=== PATIENT | male | born 1950 | race African-American/Black ===

== ENCOUNTER → 2016-04-30 | Outpatient (CLI) | payer OTHER, MEDICARE ==
[2016-01-31 09:22] VITALS: BP 145/91
[~2016-04-30] MED LIST: AMLO5TAB2 PO; AMOX1TAB11 PO; Amoxicillin/Potassium Clav PO; CEPH-264 PO; DIPH25TA64 PO; DOCU100C PO; ESOM20CA PO; FENT1PAT17 TD; FERR-26 PO; GABA-586 PO; HYDR-2672 PO; HYDR-2762 PO; HYDR10SY8 PO; HYDR10TA2 PO; IBUP-1060 PO; IBUP800T2 PO; IOHEXOL 180 MG/ML 10 ML VIAL. ONE; LEVO25TA2 PO; LEVO500T38 PO; LOSA50TA6 PO; MULT-91 PO; MV M PO; SILV400C TOP; SODI650T PO; TERA5CAP3 PO; TEST200V3 IM; VITA100C4 PO; methylPREDNISolone ACETATE 40 MG/ML VIAL. ONE; methylPREDNISolone ACETATE 80 MG/ML VIAL. ONE
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
== END | disposition home or self-care (01) ==
LOC: PNCL 10:07
PROVIDERS: ATTEND Anesthesiology
DX: M50.123 Cervical disc disorder at C6-C7 level with radiculopathy (principal); M48.02 Spinal stenosis, cervical region; I10 Essential (primary) hypertension; E03.9 Hypothyroidism, unspecified; K21.9 Gastro-esophageal reflux disease without esophagitis; M19.90 Unspecified osteoarthritis, unspecified site; H91.90 Unspecified hearing loss, unspecified ear; Z98.890 Other specified postprocedural states; Z72.89 Other problems related to lifestyle; Z83.3 Family history of diabetes mellitus; Z80.9 Family history of malignant neoplasm, unspecified
CPT/HCPCS: 62321; J1030; J1040

== ENCOUNTER 2016-06-24 19:44 | Emergency (ER) | payer MEDICARE ==
[~2016-06-24] VITALS: Ht 180.3 cm; Wt 72.6 kg
[~2016-06-24 19:44] MED LIST changes: -IOHEXOL 180 MG/ML 10 ML VIAL. ONE; -methylPREDNISolone ACETATE 40 MG/ML VIAL. ONE; -methylPREDNISolone ACETATE 80 MG/ML VIAL. ONE
[2016-06-24] MEDS ORDERED: HYDROMORPHONE 2 MG/ML VIAL. IV/SQ PRN (20:15)
[2016-06-24 20:41] LABS: BASO % 0 % (0-3); EOS % 0 % (0-3); HEMATOCRIT 27.9 % (39.0-53.0); HEMOGLOBIN 9.3 g/dL (13.0-17.5); LYMPH # 1.5 x10^3/uL (1.0-4.8); LYMPH % 17 % (24-48); MEAN CORPUSCULAR HEMOGLOBIN 31 pg (25-35); MEAN CORPUSCULAR HGB CONC 33 g/dL (31-37); MEAN CORPUSCULAR VOLUME 92 fL (79-100); MONO % 9 % (0-9); NEUT % 74 % (31-73); PLATELET COUNT 386 x10^3/uL (140-400); RED BLOOD COUNT 3.05 x10^6/uL (4.30-5.70); RED CELL DISTRIBUTION WIDTH 14.2 % (11.5-14.5); WHITE BLOOD COUNT 8.9 x10^3/uL (4.0-11.0)
[2016-06-24 21:01] LABS: ANION GAP 13 (6-14); BLOOD UREA NITROGEN 73 mg/dL (8-26); CALCIUM 8.9 mg/dL (8.5-10.1); CARBON DIOXIDE 21 mmol/L (21-32); CHLORIDE 101 mmol/L (98-107); CREATININE 1.8 mg/dL (0.7-1.3); GFR 45.8; GLUCOSE 136 mg/dL (70-99); POTASSIUM 4.6 mmol/L (3.5-5.1); SODIUM 135 mmol/L (136-145)
[2016-06-24 21:07] LABS: ALBUMIN 3.5 g/dL (3.4-5.0); ALK PHOS 64 U/L (46-116); ALT (SGPT) 25 U/L (16-63); AST (SGOT) 20 U/L (15-37); DIRECT BILIRUBIN < 0.1 mg/dL (0.0-0.2); MAGNESIUM 2.2 mg/dL (1.8-2.4); TOTAL BILIRUBIN 0.2 mg/dL (0.2-1.0); TOTAL PROTEIN 6.5 g/dL (6.4-8.2)
[2016-06-24 21:15] LABS: CKMB INDEX 1.7 % (0-4); CKMB MASS 3.2 ng/mL (0.0-3.6)
[2016-06-24 21:24] VITALS: BP 123/76
[2016-06-24] MEDS ORDERED: HYDR-963 PO (21:29)
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
--- NOTE | 2016-06-25 06:10 | EKG ---
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
== END 2016-06-24 21:50 | disposition home or self-care (01) ==
LOC: ER 19:44
DX: M54.12 Radiculopathy, cervical region (principal); M50.30 Other cervical disc degeneration, unspecified cervical region; G89.29 Other chronic pain; R07.9 Chest pain, unspecified; E03.9 Hypothyroidism, unspecified; I10 Essential (primary) hypertension
CPT/HCPCS: 36415; 80048; 80076; 82553; 83690; 83735; 83880; 84484; 85027; 93005; 96374; 99285; J1170

== ENCOUNTER → 2016-07-26 | Outpatient (CLI) | payer MEDICARE ==
[~2016-07-26] MED LIST changes: +HYDR-963 PO
== END | disposition home or self-care (01) ==
LOC: PMGWOUND 08:40
PROVIDERS: ATTEND Emergency Medicine Undersea and Hyperbaric Medicine
DX: I87.311 Chronic venous hypertension (idiopathic) with ulcer of right lower extremity (principal); L97.311 Non-pressure chronic ulcer of right ankle limited to breakdown of skin; E03.9 Hypothyroidism, unspecified; M19.90 Unspecified osteoarthritis, unspecified site; E78.5 Hyperlipidemia, unspecified; I12.9 Hypertensive chronic kidney disease with stage 1 through stage 4 chronic kidney disease, or unspecified chronic kidney disease; N18.3 Chronic kidney disease, stage 3 (moderate); Z72.89 Other problems related to lifestyle
CPT/HCPCS: 99214

== ENCOUNTER → 2016-08-02 | Outpatient (CLI) | payer MEDICARE | END | disposition home or self-care (01) | LOC: PMGWOUND 07:59 | PROVIDERS: ATTEND Emergency Medicine Undersea and Hyperbaric Medicine | DX: I87.311 Chronic venous hypertension (idiopathic) with ulcer of right lower extremity (principal); E11.622 Type 2 diabetes mellitus with other skin ulcer; L97.311 Non-pressure chronic ulcer of right ankle limited to breakdown of skin; E03.9 Hypothyroidism, unspecified; M19.90 Unspecified osteoarthritis, unspecified site; E78.5 Hyperlipidemia, unspecified; E11.22 Type 2 diabetes mellitus with diabetic chronic kidney disease; I12.9 Hypertensive chronic kidney disease with stage 1 through stage 4 chronic kidney disease, or unspecified chronic kidney disease; N18.3 Chronic kidney disease, stage 3 (moderate); Z72.89 Other problems related to lifestyle | CPT/HCPCS: 99213 ==

== ENCOUNTER → 2016-08-09 | Outpatient (CLI) | payer MEDICARE ==
[~2016-08-09] MED LIST changes: -LEVO25TA2 PO; +LEVO25TA55 PO
== END | disposition home or self-care (01) ==
LOC: PMGWOUND 08:15
PROVIDERS: ATTEND Emergency Medicine Undersea and Hyperbaric Medicine
DX: I87.311 Chronic venous hypertension (idiopathic) with ulcer of right lower extremity (principal); E11.622 Type 2 diabetes mellitus with other skin ulcer; L97.311 Non-pressure chronic ulcer of right ankle limited to breakdown of skin; E03.9 Hypothyroidism, unspecified; M19.90 Unspecified osteoarthritis, unspecified site; E11.22 Type 2 diabetes mellitus with diabetic chronic kidney disease; I12.9 Hypertensive chronic kidney disease with stage 1 through stage 4 chronic kidney disease, or unspecified chronic kidney disease; N18.3 Chronic kidney disease, stage 3 (moderate); Z72.89 Other problems related to lifestyle
CPT/HCPCS: 99214

== ENCOUNTER → 2016-08-16 | Outpatient (CLI) | payer MEDICARE | END | disposition home or self-care (01) | LOC: PMGWOUND 07:55 | PROVIDERS: ATTEND Emergency Medicine Undersea and Hyperbaric Medicine | DX: I87.311 Chronic venous hypertension (idiopathic) with ulcer of right lower extremity (principal); E11.622 Type 2 diabetes mellitus with other skin ulcer; L97.311 Non-pressure chronic ulcer of right ankle limited to breakdown of skin; E03.9 Hypothyroidism, unspecified; M19.90 Unspecified osteoarthritis, unspecified site; E11.22 Type 2 diabetes mellitus with diabetic chronic kidney disease; I12.9 Hypertensive chronic kidney disease with stage 1 through stage 4 chronic kidney disease, or unspecified chronic kidney disease; N18.3 Chronic kidney disease, stage 3 (moderate); E78.5 Hyperlipidemia, unspecified; Z72.89 Other problems related to lifestyle | CPT/HCPCS: 11042 ==

== ENCOUNTER → 2016-08-23 | Outpatient (CLI) | payer MEDICARE | END | disposition home or self-care (01) | LOC: PMGWOUND 07:51 | PROVIDERS: ATTEND Emergency Medicine Undersea and Hyperbaric Medicine | DX: I87.311 Chronic venous hypertension (idiopathic) with ulcer of right lower extremity (principal); L97.311 Non-pressure chronic ulcer of right ankle limited to breakdown of skin; E03.9 Hypothyroidism, unspecified; M19.90 Unspecified osteoarthritis, unspecified site; E11.22 Type 2 diabetes mellitus with diabetic chronic kidney disease; I12.9 Hypertensive chronic kidney disease with stage 1 through stage 4 chronic kidney disease, or unspecified chronic kidney disease; N18.3 Chronic kidney disease, stage 3 (moderate); E78.5 Hyperlipidemia, unspecified; Z72.89 Other problems related to lifestyle | CPT/HCPCS: 99214 ==

== ENCOUNTER → 2016-08-30 | Outpatient (CLI) | payer MEDICARE | END | disposition home or self-care (01) | LOC: PMGWOUND 07:58 | PROVIDERS: ATTEND Emergency Medicine Undersea and Hyperbaric Medicine | DX: I87.311 Chronic venous hypertension (idiopathic) with ulcer of right lower extremity (principal); L97.311 Non-pressure chronic ulcer of right ankle limited to breakdown of skin; E78.5 Hyperlipidemia, unspecified; I12.9 Hypertensive chronic kidney disease with stage 1 through stage 4 chronic kidney disease, or unspecified chronic kidney disease; E11.22 Type 2 diabetes mellitus with diabetic chronic kidney disease; N18.3 Chronic kidney disease, stage 3 (moderate); E03.9 Hypothyroidism, unspecified; M19.90 Unspecified osteoarthritis, unspecified site; Z72.89 Other problems related to lifestyle | CPT/HCPCS: 15271; Q4101 ==

== ENCOUNTER → 2016-09-06 | Outpatient (CLI) | payer MEDICARE | END | disposition home or self-care (01) | LOC: PMGWOUND 12:09 | PROVIDERS: ATTEND Emergency Medicine Undersea and Hyperbaric Medicine | DX: I87.311 Chronic venous hypertension (idiopathic) with ulcer of right lower extremity (principal); E11.622 Type 2 diabetes mellitus with other skin ulcer; E11.22 Type 2 diabetes mellitus with diabetic chronic kidney disease; L97.311 Non-pressure chronic ulcer of right ankle limited to breakdown of skin; I12.9 Hypertensive chronic kidney disease with stage 1 through stage 4 chronic kidney disease, or unspecified chronic kidney disease; N18.3 Chronic kidney disease, stage 3 (moderate); E78.5 Hyperlipidemia, unspecified; M19.90 Unspecified osteoarthritis, unspecified site; E03.9 Hypothyroidism, unspecified; Z72.89 Other problems related to lifestyle | CPT/HCPCS: 99214 ==

== ENCOUNTER → 2016-09-13 | Outpatient (CLI) | payer MEDICARE ==
[~2016-09-13] MED LIST changes: +DOCU-150 PO; -DOCU100C PO; -HYDR-2672 PO; +HYDR-2766 PO; +HYDR10SY16 PO; -HYDR10SY8 PO; +IBUP800T19 PO; -IBUP800T2 PO; -LEVO500T38 PO; +LEVO500T59 PO; -MV M PO; +MV-M1TAB34 PO
== END | disposition home or self-care (01) ==
LOC: PMGWOUND 07:57
PROVIDERS: ATTEND Emergency Medicine Undersea and Hyperbaric Medicine
DX: I87.311 Chronic venous hypertension (idiopathic) with ulcer of right lower extremity (principal); L97.211 Non-pressure chronic ulcer of right calf limited to breakdown of skin; E78.5 Hyperlipidemia, unspecified; I12.9 Hypertensive chronic kidney disease with stage 1 through stage 4 chronic kidney disease, or unspecified chronic kidney disease; E11.22 Type 2 diabetes mellitus with diabetic chronic kidney disease; N18.3 Chronic kidney disease, stage 3 (moderate); E03.9 Hypothyroidism, unspecified; M19.90 Unspecified osteoarthritis, unspecified site; Z72.89 Other problems related to lifestyle
CPT/HCPCS: 15271; Q4101

== ENCOUNTER → 2016-09-17 | Outpatient (CLI) | payer MEDICARE | END | disposition home or self-care (01) | LOC: PMGWOUND 08:26 | PROVIDERS: ATTEND Emergency Medicine Undersea and Hyperbaric Medicine | DX: I87.311 Chronic venous hypertension (idiopathic) with ulcer of right lower extremity (principal); E11.622 Type 2 diabetes mellitus with other skin ulcer; L97.211 Non-pressure chronic ulcer of right calf limited to breakdown of skin; E03.9 Hypothyroidism, unspecified; M19.90 Unspecified osteoarthritis, unspecified site; E78.5 Hyperlipidemia, unspecified; E11.22 Type 2 diabetes mellitus with diabetic chronic kidney disease; I12.9 Hypertensive chronic kidney disease with stage 1 through stage 4 chronic kidney disease, or unspecified chronic kidney disease; N18.3 Chronic kidney disease, stage 3 (moderate); Z72.89 Other problems related to lifestyle | CPT/HCPCS: 99212 ==

== ENCOUNTER → 2016-09-20 | Outpatient (CLI) | payer MEDICARE | END | disposition home or self-care (01) | LOC: PMGWOUND 08:58 | PROVIDERS: ATTEND Emergency Medicine Undersea and Hyperbaric Medicine | DX: I87.311 Chronic venous hypertension (idiopathic) with ulcer of right lower extremity (principal); L97.211 Non-pressure chronic ulcer of right calf limited to breakdown of skin; E78.5 Hyperlipidemia, unspecified; E03.9 Hypothyroidism, unspecified; E11.22 Type 2 diabetes mellitus with diabetic chronic kidney disease; I12.9 Hypertensive chronic kidney disease with stage 1 through stage 4 chronic kidney disease, or unspecified chronic kidney disease; N18.3 Chronic kidney disease, stage 3 (moderate); M19.90 Unspecified osteoarthritis, unspecified site; Z72.89 Other problems related to lifestyle | CPT/HCPCS: 15271; Q4101 ==

== ENCOUNTER → 2016-09-24 | Outpatient (CLI) | payer MEDICARE | END | disposition home or self-care (01) | LOC: PMGWOUND 07:46 | PROVIDERS: ATTEND Emergency Medicine Undersea and Hyperbaric Medicine | DX: I87.311 Chronic venous hypertension (idiopathic) with ulcer of right lower extremity (principal); L97.211 Non-pressure chronic ulcer of right calf limited to breakdown of skin; E78.5 Hyperlipidemia, unspecified; E03.9 Hypothyroidism, unspecified; E11.22 Type 2 diabetes mellitus with diabetic chronic kidney disease; I12.9 Hypertensive chronic kidney disease with stage 1 through stage 4 chronic kidney disease, or unspecified chronic kidney disease; N18.3 Chronic kidney disease, stage 3 (moderate); M19.90 Unspecified osteoarthritis, unspecified site; Z72.89 Other problems related to lifestyle | CPT/HCPCS: 99211 ==

== ENCOUNTER → 2016-10-01 | Outpatient (CLI) | payer MEDICARE | END | disposition home or self-care (01) | LOC: PMGWOUND 08:02 | PROVIDERS: ATTEND Emergency Medicine Undersea and Hyperbaric Medicine | DX: I87.311 Chronic venous hypertension (idiopathic) with ulcer of right lower extremity (principal); E11.622 Type 2 diabetes mellitus with other skin ulcer; L97.311 Non-pressure chronic ulcer of right ankle limited to breakdown of skin; E78.5 Hyperlipidemia, unspecified; E03.9 Hypothyroidism, unspecified; M19.90 Unspecified osteoarthritis, unspecified site; E11.22 Type 2 diabetes mellitus with diabetic chronic kidney disease; I12.9 Hypertensive chronic kidney disease with stage 1 through stage 4 chronic kidney disease, or unspecified chronic kidney disease; N18.3 Chronic kidney disease, stage 3 (moderate); Z72.89 Other problems related to lifestyle | CPT/HCPCS: 11100 ==

== ENCOUNTER → 2016-10-08 | Outpatient (CLI) | payer MEDICARE ==
--- NOTE | 2016-10-02 15:02 | PATHOLOGY ---
PATHOLOGY REPORT * * * * * * * * FINAL DIAGNOSIS: Skin, right ankle punch biopsy: - Granulation tissue with acute and chronic inflammation and focal hemosiderin-laden macrophages, consistent with ulcer. COMMENT: There is no evidence of malignancy. (JPM:mml; d/t: 10/02/2016) REPORT ELECTRONICALLY SIGNED BY: Trevin Stack M.D. DATE/TIME: 10/02/2016 15:01 * * * * * * * * GROSS PATHOLOGY: Received in formalin labeled "Radha Sanders, skin right ankle," is one half of a punch biopsy measuring 0.4. X 0.3 x 0.2 cm in greatest dimensions. The epidermal surface ruiz shelton and smooth. The margin is inked, and the specimen is entirely submitted in cassetteA1. (JPM; 10/01/16) INITIAL CPT CODE(S): A; 00092 Professional services [place] [address] Technical services performed by [facility] at [address] [place] [address]. SPECIMEN(S) RECEIVED: A.Tissue from right ankle wound CLINICAL HISTORY: Possible malignancy, I87.311=Chronic venous hypertension w ulcer of r low extremity PATIENT: RADHA SANDERS /AGE: 4 1950 (Age: 66) PATIENT #: [id number] ALT CASE #: SPECIMEN COLLECTION DATE: 10/01/2016 SPECIMEN RECEIVED DATE: 10/01/2016 [facility] - [address] [place] [address] - PHONE: [phone] * * * END OF REPORT * * *
== END | disposition home or self-care (01) ==
LOC: PMGWOUND 08:09
PROVIDERS: ATTEND Emergency Medicine Undersea and Hyperbaric Medicine
DX: I87.311 Chronic venous hypertension (idiopathic) with ulcer of right lower extremity (principal); L97.312 Non-pressure chronic ulcer of right ankle with fat layer exposed; E78.5 Hyperlipidemia, unspecified; E03.9 Hypothyroidism, unspecified; E11.22 Type 2 diabetes mellitus with diabetic chronic kidney disease; I12.9 Hypertensive chronic kidney disease with stage 1 through stage 4 chronic kidney disease, or unspecified chronic kidney disease; N18.3 Chronic kidney disease, stage 3 (moderate); M19.90 Unspecified osteoarthritis, unspecified site; Z72.89 Other problems related to lifestyle
CPT/HCPCS: 15271; 88305; Q4101; 29581

== ENCOUNTER → 2016-10-11 | Outpatient (CLI) | payer MEDICARE | END | disposition home or self-care (01) | LOC: PMGWOUND 11:03 | PROVIDERS: ATTEND Emergency Medicine Undersea and Hyperbaric Medicine | DX: I87.311 Chronic venous hypertension (idiopathic) with ulcer of right lower extremity (principal); E11.622 Type 2 diabetes mellitus with other skin ulcer; L97.311 Non-pressure chronic ulcer of right ankle limited to breakdown of skin; E03.9 Hypothyroidism, unspecified; M19.90 Unspecified osteoarthritis, unspecified site; E78.5 Hyperlipidemia, unspecified; E11.22 Type 2 diabetes mellitus with diabetic chronic kidney disease; I12.9 Hypertensive chronic kidney disease with stage 1 through stage 4 chronic kidney disease, or unspecified chronic kidney disease; N18.3 Chronic kidney disease, stage 3 (moderate); Z72.89 Other problems related to lifestyle | CPT/HCPCS: 29581 ==

== ENCOUNTER → 2016-10-15 | Outpatient (CLI) | payer MEDICARE | END | disposition home or self-care (01) | LOC: PMGWOUND 07:58 | PROVIDERS: ATTEND Emergency Medicine Undersea and Hyperbaric Medicine | DX: I87.311 Chronic venous hypertension (idiopathic) with ulcer of right lower extremity (principal); E11.622 Type 2 diabetes mellitus with other skin ulcer; L97.311 Non-pressure chronic ulcer of right ankle limited to breakdown of skin; E03.9 Hypothyroidism, unspecified; M19.90 Unspecified osteoarthritis, unspecified site; E11.22 Type 2 diabetes mellitus with diabetic chronic kidney disease; I12.9 Hypertensive chronic kidney disease with stage 1 through stage 4 chronic kidney disease, or unspecified chronic kidney disease; N18.3 Chronic kidney disease, stage 3 (moderate); E78.5 Hyperlipidemia, unspecified; Z72.89 Other problems related to lifestyle | CPT/HCPCS: 99213 ==

== ENCOUNTER → 2016-10-22 | Outpatient (CLI) | payer MEDICARE | END | disposition home or self-care (01) | LOC: PMGWOUND 07:58 | PROVIDERS: ATTEND Emergency Medicine Undersea and Hyperbaric Medicine | DX: I87.311 Chronic venous hypertension (idiopathic) with ulcer of right lower extremity (principal); L97.311 Non-pressure chronic ulcer of right ankle limited to breakdown of skin; L97.222 Non-pressure chronic ulcer of left calf with fat layer exposed; E78.5 Hyperlipidemia, unspecified; E03.9 Hypothyroidism, unspecified; E11.22 Type 2 diabetes mellitus with diabetic chronic kidney disease; I12.9 Hypertensive chronic kidney disease with stage 1 through stage 4 chronic kidney disease, or unspecified chronic kidney disease; N18.3 Chronic kidney disease, stage 3 (moderate); M19.90 Unspecified osteoarthritis, unspecified site; Z72.89 Other problems related to lifestyle | CPT/HCPCS: 99214 ==

== ENCOUNTER → 2016-11-05 | Outpatient (CLI) | payer MEDICARE ==
--- NOTE | 2016-11-05 09:06 | RAD ---
INDICATION: Neck pain, bilateral arm radiculopathy, symptoms for a year. TECHNIQUE: Sagittal T1, sagittal T2, sagittal STIR, axial T2, and axial T2 gradient sequences are provided. Comparison is a CT from January 29, 2016. FINDINGS: There is 5 mm of retrolisthesis at C5-C6 and at C6-C7. There is endplate edema which appears degenerative from C4-C5 through C6-C7. There is also narrowing of the interspace at these levels, greatest at C4-C5. There is no worrisome marrow lesion. There is no cord signal abnormality. Cervicomedullary junction is unremarkable. Degenerative findings by individual level are as follows: C2-C3: There is mild uncinate process spurring and there is right facet hypertrophy. There is mild right foraminal narrowing. C3-C4: There is a disc osteophyte complex and uncinate process spurring. There is minimal facet hypertrophy. Midline AP diameter of the thecal sac is narrowed to 10 mm. There is high-grade bilateral foraminal narrowing. C4-C5: Disc osteophyte complex and uncinate process spurring are noted. There is also minimal facet hypertrophy. Midline AP diameter of the thecal sac is minimally narrowed to 10 mm. Foraminal narrowing is at least moderate. C5-C6: Irregular disc osteophyte complex, uncinate process spurring, and buckling of ligamentum flavum are noted. Midline AP diameter of the thecal sac is mildly narrowed to 8 mm. Foraminal narrowing is high-grade bilaterally. C6-C7: Disc osteophyte complex, uncinate process spurring, and buckling of ligamentum flavum are noted. Midline AP diameter of the thecal sac is narrowed to 8 mm. There is high-grade foraminal narrowing, greater on the left. C7-T1: There is facet hypertrophy with [id number] bilateral foraminal narrowing. IMPRESSION: 1. Multilevel degenerative disc disease along with uncinate process spurring, facet hypertrophy, and buckling of ligamentum flavum. Canal stenosis is greatest at C5-C6 and C6-C7. Several levels of high-grade foraminal narrowing are noted. Electronically signed by: Abner Jacobo MD (11/05/2016 9:03 AM) [id number]
== END | disposition home or self-care (01) ==
LOC: MRI 07:45
PROVIDERS: ATTEND Neurological Surgery
DX: M50.30 Other cervical disc degeneration, unspecified cervical region (principal); M48.02 Spinal stenosis, cervical region
CPT/HCPCS: 72141

== ENCOUNTER → 2016-11-26 | Outpatient (CLI) | payer MEDICARE ==
[~2016-11-26] MED LIST changes: +MULT-223 PO; -MULT-91 PO
--- NOTE | 2016-11-26 12:02 | EKG ---
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
[2016-11-26 12:11] LABS: BASO % 1 % (0-3); EOS % 2 % (0-3); HEMATOCRIT 38.5 % (39.0-53.0); HEMOGLOBIN 12.9 g/dL (13.0-17.5); LYMPH % 22 % (24-48); MEAN CORPUSCULAR HEMOGLOBIN 34 pg (25-35); MEAN CORPUSCULAR HGB CONC 34 g/dL (31-37); MEAN CORPUSCULAR VOLUME 101 fL (79-100); MONO % 18 % (0-9); NEUT % 57 % (31-73); PLATELET COUNT 349 x10^3/uL (140-400); RED BLOOD COUNT 3.79 x10^6/uL (4.30-5.70); RED CELL DISTRIBUTION WIDTH 13.5 % (11.5-14.5); WHITE BLOOD COUNT 4.6 x10^3/uL (4.0-11.0)
[2016-11-26 12:25] LABS: ALBUMIN 3.6 g/dL (3.4-5.0); ALBUMIN/GLOBULIN RATIO 1.1 (1.0-1.7); CALCIUM 8.6 mg/dL (8.5-10.1); CREATININE 1.2 mg/dL (0.7-1.3); GFR 72.9; POTASSIUM 4.2 mmol/L (3.5-5.1); TOTAL BILIRUBIN 0.3 mg/dL (0.2-1.0); TOTAL PROTEIN 6.9 g/dL (6.4-8.2)
[2016-11-26 12:27] LABS: PROTHROMBIN TIME PATIENT 12.4 SEC (11.7-14.0)
== END | disposition home or self-care (01) ==
LOC: SURGPAT 11:12
PROVIDERS: ATTEND Neurological Surgery
DX: I21.3 ST elevation (STEMI) myocardial infarction of unspecified site (principal)
CPT/HCPCS: 36415; 80053; 85025; 85610; 85730; 87641; 93005

== ENCOUNTER 2016-12-04 08:43 | Observation (INO) | payer MEDICARE ==
[2016-12-04] VITALS (11 sets, daily range): BP systolic 133–191; BP diastolic 76–110
[~2016-12-04] VITALS: Ht 177.8 cm; Wt 68.6 kg
[~2016-12-04 08:43] MED LIST changes: +0.9 % SODIUM CHLORIDE 50 ML VIAL. IJ ONE; +BUPIVAC MPF-EPI 0.5%-1:200000 30 ML VIAL. ONE; +DEXAMETHASONE SOD PHOS 20 MG/5 ML VIAL. ONE; +GELATIN SPONGE SIZE 100. ONE; +IV RINGERS,LACTATED 1000ML 1,000 ML IV SCH; +LIDOCAINE 1% 1 ML SYRINGE. ID PRN; +LIDOCAINE 2% PF Vial for OR 5 ML VIAL. ONE; +MIDAZOLAM HCL/PF 2 MG/2 ML VIAL. ONE; +MINERAL OIL/PETROLATUM,WHITE OPHTH OINT 3.5GM TUBE. ONE; +ONDANSETRON PF 4 MG/2 ML VIAL. IV PRN; +ONDANSETRON PF 4 MG/2 ML VIAL. ONE; +PHENYLEPHRINE 10 MG/ML VIAL. ONE; +PROCHLORPERAZINE 10 MG/2 ML VIAL. IV PRN; +PROPOFOL 20 ML IV ONE; +PROPOFOL 50 ML IV ONE; +REMIFENTANIL 2 MG VIAL. IV ONE; +ROCURONIUM 100 MG/10 ML VIAL. ONE; +THROMBIN TOPICAL 20,000 UNIT SPRAY.SYRN KIT TP ONE; +fentaNYL PF VIAL 100 MCG/2 ML VIAL IV PRN
[2016-12-04] MEDS: BACITRACIN 50,000 UNIT in IV NORMAL SALINE 1000ML BAG 1,000 ML IRR ONE ×2 (09:43→09:54)
[2016-12-04] MEDS ORDERED: DESFLURANE > 120 MINUTES IH ONE (09:56)
[2016-12-04] MEDS ORDERED: PROPOFOL 50 ML IV ONE ×2 (09:56→11:46)
[2016-12-04] MEDS ORDERED: REMIFENTANIL 2 MG VIAL. IV ONE (11:57)
[2016-12-04] MEDS ORDERED: ESMOLOL 100 MG/10 ML VIAL. IV ONE ×2 (13:20)
[2016-12-04] MEDS ORDERED: fentaNYL PF VIAL 100 MCG/2 ML VIAL ONE ×3 (13:20→15:32)
--- NOTE | 2016-12-04 13:51 | PDOC ---
BRIEF OPERATIVE NOTE Date: Dec 04, 2016 Pre-Op Diagnosis cervical stenosis, cervical spondylosis, cervical myelopathy, cervical radicular pain Post-Op Diagnosis same Procedure Performed ACDF C4-5, 5-6, 6-7 Surgeon Niyah Casual Shoe Inspector none Anesthesiologist Tatyana Anesthesia Type: General Blood Loss 150mL Specimens Obtained disk and decompression Findings prominent stenosis at the aforementioned levels, neuromonitoring sensory and motor potentials reportedly improved at the end of the procedure compared to baseline Complications none apparent NANCIE RODRIGUEZ MD Dec 04, 2016 13:51
[2016-12-04] MEDS ORDERED: CALCIUM CARBONATE 500 MG TAB.CHEW PO PRN (14:00)
[2016-12-04] MEDS ORDERED: diphenhydrAMINE HCL 25 MG CAPSULE PO PRN (14:00)
[2016-12-04] MEDS ORDERED: 0.9 % SODIUM CHLORIDE 10 ML DISP.SYRIN. IV PRN (14:00)
[2016-12-04] MEDS ORDERED: NALOXONE 0.4 MG/ML VIAL. IV PRN (14:00)
[2016-12-04] MEDS ORDERED: fentaNYL PF VIAL 100 MCG/2 ML VIAL IV PRN ×2 (14:00)
[2016-12-04] MEDS ORDERED: diphenhydrAMINE 50 MG/ML VIAL IV PRN (14:00)
[2016-12-04] MEDS ORDERED: oxyCODONE/APAP 5/325 1 TAB TABLET PO PRN ×2 (14:00)
[2016-12-04] MEDS ORDERED: MAG HYDROX/ALUMINUM HYD/SIMETH 30 ML ORAL.SUSP PO PRN (14:00)
[2016-12-04] MEDS ORDERED: ACETAMINOPHEN 325 MG TABLET. PO PRN (14:00)
[2016-12-04] MEDS: fentaNYL PF VIAL 100 MCG/2 ML VIAL IV PRN ×5 (14:13→18:50)
[2016-12-04] MEDS ORDERED: HYDROmorphone 2 MG/ML VIAL ONE (14:23)
[2016-12-04] MEDS: HYDROmorphone 2 MG/ML VIAL IV PRN ×4 (14:29→15:12)
[2016-12-04] MEDS ORDERED: MORPHINE SULFATE 2 MG/ML DISP.SYRIN. ONE ×2 (15:17→15:48)
[2016-12-04] MEDS: MORPHINE SULFATE 2 MG/ML DISP.SYRIN. IV PRN ×4 (15:22→16:05)
[2016-12-04] MEDS: CALCIUM CARB/VIT D3 500/200 TABLET. PO SCH (18:50)
[2016-12-04] MEDS: FERROUS SULFATE 325 MG TABLET. PO SCH (18:51)
[2016-12-04] MEDS: MORPHINE SULFATE 4 MG/ML DISP.SYRIN. IV PRN (20:24)
[2016-12-04] MEDS: METHOCARBAMOL 750 MG TABLET PO SCH (21:26)
[2016-12-04] MEDS: GABAPENTIN 300 MG CAPSULE. PO SCH (21:26)
[2016-12-04] MEDS: HYDROcodone/APAP 10/325 1 TAB TABLET PO PRN (22:27)
[2016-12-05] VITALS (9 sets, daily range): BP systolic 108–168; BP diastolic 80–107
[2016-12-05] MEDS: MORPHINE SULFATE 4 MG/ML DISP.SYRIN. IV PRN ×6 (00:46→22:58)
[2016-12-05] MEDS: HYDROcodone/APAP 10/325 1 TAB TABLET PO PRN ×3 (02:48→09:27)
[2016-12-05] MEDS: LEVOTHYROXINE 25 MCG TABLET. PO SCH (07:06)
[2016-12-05] MEDS: PANTOPRAZOLE 40 MG TABLET.DR. PO SCH (07:06)
[2016-12-05] MEDS: MULTIVITAMIN with MINERAL TABLET. PO SCH (08:30)
[2016-12-05] MEDS: METHOCARBAMOL 750 MG TABLET PO SCH ×3 (08:30→20:54)
[2016-12-05] MEDS: FERROUS SULFATE 325 MG TABLET. PO SCH ×2 (08:30→16:46)
[2016-12-05] MEDS: CALCIUM CARB/VIT D3 500/200 TABLET. PO SCH ×2 (08:30→16:46)
[2016-12-05] MEDS: amLODIPine BESYLATE 5 MG TABLET PO SCH (08:31)
[2016-12-05] MEDS: GABAPENTIN 300 MG CAPSULE. PO SCH ×3 (08:32→20:54)
[2016-12-05] MEDS: LOSARTAN POTASSIUM 50 MG TABLET. PO SCH (08:32)
[2016-12-05] MEDS ORDERED: MULTIVITAMIN PO SCH (09:00)
--- NOTE | 2016-12-05 10:41 | PDOC ---
SUBJECTIVE Subjective Reports strength improved in arms. Some incisional pain - still utilizing IV. Eating and swallowing without problem. OBJECTIVE Vital Signs Vital Signs Date Time Temp Pulse Resp B/P (MAP) Pulse Ox O2 Delivery O2 Flow Rate FiO2 12/05/16 09:27 Room Air 12/05/16 08:32 113 160/87 12/05/16 08:31 113 160/87 12/05/16 08:00 18 12/05/16 07:07 20 96 Room Air 12/05/16 06:12 20 98 Room Air 12/05/16 06:00 97.4 95 20 161/81 (107) 99 Room Air 97.4 12/05/16 05:31 20 Room Air 12/05/16 04:00 Room Air 12/05/16 03:15 91 156/88 (110) 12/05/16 03:00 98.5 95 22 160/91 (114) 99 Room Air 98.5 12/05/16 02:48 20 96 Room Air 12/05/16 00:46 20 98 Room Air 12/05/16 00:30 98 20 150/80 (103) 99 12/04/16 23:45 95 20 150/87 (108) 97 Room Air 12/04/16 22:52 97 20 133/85 (101) 96 Room Air 12/04/16 22:27 20 Room Air 12/04/16 22:20 98.0 103 18 191/110 (137) 98 Room Air 98.0 12/04/16 20:24 20 Room Air 12/04/16 20:15 Room Air 12/04/16 19:30 20 96 Room Air 12/04/16 19:00 99.4 113 18 136/76 (96) 99 Room Air 99.4 12/04/16 18:20 100 20 155/87 (109) 97 Room Air 12/04/16 18:06 97.6 98 20 167/91 (116) 98 Room Air 97.6 12/04/16 17:30 18 145/77 (99) 97 Room Air 12/04/16 17:15 98.0 140 166/99 (121) 98.0 12/04/16 17:00 18 175/100 (125) 97 Room Air 12/04/16 17:00 Room Air 12/04/16 16:47 20 12/04/16 16:45 160/90 (113) 12/04/16 16:30 98.8 101 20 168/95 (119) 98 Room Air 98.8 12/04/16 16:06 104 17 160/63 98 Room Air 12/04/16 15:51 97.9 104 16 162/100 99 Room Air 97.9 12/04/16 15:36 104 18 168/96 99 Room Air 12/04/16 15:27 18 Room Air 12/04/16 15:21 104 16 169/87 99 Room Air 12/04/16 15:12 15 Room Air 12/04/16 15:06 103 17 171/91 100 Room Air 12/04/16 14:58 16 Room Air 12/04/16 14:51 101 12 149/86 100 Room Air 12/04/16 14:40 17 100 12/04/16 14:36 108 16 160/83 99 Room Air 12/04/16 14:29 17 99 Room Air 2.0 12/04/16 14:21 104 17 160/83 98 Room Air 12/04/16 14:18 16 100 Room Air 12/04/16 14:13 20 99 Simple Mask 10.0 12/04/16 14:06 114 20 162/88 99 10 12/04/16 13:51 100.6 116 20 162/88 97 Simple Mask 10 100.6 I & O Intake and Output 12/06/16 07:00 Intake Total 360 ml Balance 360 ml Intake Oral 360 ml PHYSICAL EXAM Physical Exam AAOx4, speech fluent with good phonation GIL 4-5/5 BUE (significantly improved compared to pre-op), ankle strength stable , sensation intact LT, dressing c/d/ i with mild ss stain, flat ASSESSMENT/PLAN Assessment/Plan POD 1 C4-5, 5-6, 6-7 ACDF -strength improved compared to pre-op -still requiring IV pain control - change po regimen -PT/OT, increase activity as able -anticipate d/c in AM Problems: NANCIE RODRIGUEZ MD Dec 05, 2016 10:41
[2016-12-05] MEDS ORDERED: oxyCODONE/APAP 7.5/325 1 TAB TABLET PO PRN (10:45)
[2016-12-05] MEDS: BENZOCAINE/MENTHOL LOZENGE. PO PRN ×5 (12:13→23:02)
[2016-12-05] MEDS: oxyCODONE/APAP 7.5/325 1 TAB TABLET PO PRN ×3 (12:13→20:55)
--- NOTE | 2016-12-05 12:18 | OP ---
DATE OF SURGERY: 12/04/2016 SURGEON: Agapito Rodriguez MD PILLING MACHINE OPERATOR: None. PREOPERATIVE DIAGNOSES: Cervical stenosis, cervical myelopathy, cervical spondylosis and cervical radiculopathy. POSTOPERATIVE DIAGNOSES: Cervical stenosis, cervical myelopathy, cervical spondylosis and cervical radiculopathy. PROCEDURE: Instrumented anterior cervical discectomy and fusion of cervical 4-5, cervical 5-6, cervical 6-7 with intraoperative use of neuro monitoring utilizing Amendia instrumentation with structural allograft fusion substrate. ANESTHESIA: General. COMPLICATIONS: None intraprocedurally. INDICATIONS FOR THE PROCEDURE: The patient is a 66-year-old gentleman with increasing weakness and pain and numbness in the upper extremities as a prominent cervical stenosis related to cervical spondylosis. Please refer to the patient's chart for additional detail. DESCRIPTION OF PROCEDURE: After informed consent was obtained, the patient was brought into the operating room. He was placed under general anesthesia, was placed in the supine position. Baseline neuromonitoring potentials were obtained. A shoulder bump was placed under the shoulders and placed in very slight extension. All pressure points were checked and padded appropriately. The anterior neck was prepped and draped in the usual sterile fashion. Fluoroscopy was utilized to localize an appropriate incision location and a horizontal incision over the region of cervical 6 was made with a 10 blade scalpel. Blunt dissection techniques were utilized to dissect the underlying soft tissues. The platysma was encountered and sharply divided in the plane of the incision. Blunt dissection techniques were utilized to develop a plane between the carotid sheath laterally and the trachea and esophagus medially to approach the anterior cervical spine. The prevertebral fascia was taken down with a Kittner and the longus colli muscles were gently cauterized to be utilized for protection of the adjacent structures from self retainers. Level was verified with fluoroscopy and self retainers were instituted. Discectomy was first performed most caudally and extended cephalad beginning with cervical 6-7. Distraction pins were instituted in cervical 6 and cervical 7 and some traction was applied. An annulotomy was performed at cervical 6-7. Disk material was removed with a curette as well as pituitary rongeur. The anterior osteophyte cervical 6 was taken down with a Kerrison rongeur. The posterior longitudinal ligament was encountered and was divided with a Kerrison rongeur. Disk material was gently teased posteriorly and removed with a pituitary rongeur. Neural elements were noted to be very well decompressed upon completion of discectomy. Trials were instituted to ascertain an appropriate graft size and a 7 mm structural allograft was instituted at cervical 6-7. Once this was complete, the traction was removed and the distraction pin from cervical 7 was removed. Bone wax was utilized to obtain hemostasis from the pin site. The pin was then instituted into cervical 5 and distraction was created across the cervical 5-6. Annulotomy was performed with an 11 blade scalpel and discectomy was performed at cervical 5-6 utilizing a curette as well as a pituitary rongeur. The anterior osteophyte of cervical 5 was taken down with a Kerrison rongeur. Distraction was gradually progressed as the discectomy was performed. The anterior osteophytes of cervical 5-6 were taken down with a Kerrison rongeur and the ligament was divided with a Kerrison rongeur. Upon completion of discectomy, the neural elements were noted to be very well decompressed. This was verified with direct visualization as well as gentle palpation with a nerve hook. Trials were instituted at cervical 5-6 and a 6 mm structural allograft was instituted in the disk space at cervical 5-6. Traction was removed. Upon completion of this, it was noted that the structural allograft at cervical 6-7 had slightly shifted, so the traction pin was reinstituted in the cervical 7 and traction was again applied across C6-7. It was noted that the structural allograft had a small fracture. This was removed without problem and a new 7 mm structural allograft was placed without difficulty in good position. The traction was removed and attention was turned to cervical 4-5. Traction pins were instituted at cervical 4 and cervical 5 and distraction was instituted. The disk space was markedly collapsed and disk material was developed with a curette as well as use of pneumatic drill. Upon completion of this, additional distraction was able to be ascertained and the osteophytes were taken down with a Kerrison rongeur. The underlying neural elements were noted to be very well decompressed upon completion of a discectomy and removed with the osteophytes. Indirect decompression was also noted from the distraction of the collapsed disk space. The anterior longitudinal ligament was divided with a pituitary rongeur. Trials were instituted and a 6 mm structural allograft was instituted into the space at cervical 4-5. Once this was complete, traction was removed and the traction pins were removed. An Amendia anterior cervical plate was instituted across the cervical 4-5, 5-6 and 6-7. This was gently instituted and positioned. The bone at the screw sites was decorticated with a pneumatic drill. Once this was complete, screws were instituted at cervical 4, cervical 5, cervical 6 and cervical 7 with two screws at each location. Good purchase was noted at each location and the screws were secured, tightened, and locked according to the reimbursement consultant's specification. Upon completion of this, fluoroscopy was utilized to verify the appropriate position of the fusion construct including the instrumentation as well as the structural allografts. Once this was noted to be adequate, attention was turned to closure. Of note, neuro monitoring potentials including somatosensory and motor potentials were improved compared to baseline upon completion of the procedure. Pristine hemostasis was achieved with FloSeal, gentle irrigation and some use of bipolar electrocautery as well as thrombin. The wound was generously irrigated with antibiotic irrigation prior to the final closure. The platysma was reapproximated with Vicryl suture in simple interrupted fashion. Subcutaneous tissues were reapproximated with Vicryl suture in interrupted inverted fashion and the skin was reapproximated with 4-0 Vicryl suture in running subcuticular fashion. Mastisol and Steri-Strips were applied and the wound was dressed with Telfa and Tegaderm. At the end of the procedure, all needle and sponge counts were correct x 2. The patient was extubated in the operating room and taken to recovery in stable condition. There were no intraprocedural complications apparent. AGAPITO RODRIGUEZ MD DR: DORIS/kevin JOB#: [id number] / [id number] ROMY
[2016-12-05] MEDS ORDERED: NON FORMULARY ITEM PO SCH (17:00)
[2016-12-05] MEDS: ZOLPIDEM 5 MG TABLET. PO PRN ×3 (21:05→23:02)
[2016-12-06] MEDS: oxyCODONE/APAP 7.5/325 1 TAB TABLET PO PRN ×3 (01:59→10:25)
[2016-12-06 03:00] VITALS: BP 156/98
[2016-12-06] MEDS: MORPHINE SULFATE 4 MG/ML DISP.SYRIN. IV PRN ×3 (03:10→11:28)
[2016-12-06] MEDS: BENZOCAINE/MENTHOL LOZENGE. PO PRN (03:20)
[2016-12-06] MEDS: LEVOTHYROXINE 25 MCG TABLET. PO SCH (06:09)
[2016-12-06] MEDS: PANTOPRAZOLE 40 MG TABLET.DR. PO SCH (06:09)
[2016-12-06 06:42] VITALS: BP 155/107
[2016-12-06] MEDS: MULTIVITAMIN with MINERAL TABLET. PO SCH (08:19)
[2016-12-06] MEDS: METHOCARBAMOL 750 MG TABLET PO SCH (08:19)
[2016-12-06] MEDS: FERROUS SULFATE 325 MG TABLET. PO SCH (08:19)
[2016-12-06] MEDS: CALCIUM CARB/VIT D3 500/200 TABLET. PO SCH (08:19)
[2016-12-06] MEDS: GABAPENTIN 300 MG CAPSULE. PO SCH (08:19)
[2016-12-06] MEDS: LOSARTAN POTASSIUM 50 MG TABLET. PO SCH (08:21)
[2016-12-06] MEDS: amLODIPine BESYLATE 5 MG TABLET PO SCH (08:23)
--- NOTE | 2016-12-06 10:10 | DISCH ---
DISCHARGE INSTRUCTIONS Condition on Discharge Condition on Discharge: Stable Activity After Discharge Activity Instructions for Disc: Activity as tolerated, Avoid exertion Bathing Instructions: Shower-keep dressing dry Lifting Instructions after Dis: No heavy lifting, No pulling or pushing, Do not lift >10 pounds Driving Instructions after Dis: No driving for 2 weeks Diet after Discharge Additional Diet Restrictions: resume home diet Wound Incision Care Wound/Incision Care: Ice to area for comfort Other wound/incision instructi: may remove dressing when home, no soaking or direct water pressure Contacting the after DC Call your doctor for: Concerns you may have Follow-Up Follow up with: Dr. Linder in 2 weeks [phone] DANGELO MORE [employer] Dec 06, 2016 10:10
[2016-12-06] MEDS ORDERED: OXYC1TAB8 PO (10:12)
[2016-12-06] MEDS ORDERED: METH750T2 PO (10:12)
[2016-12-06 11:15] VITALS: BP 160/94
--- NOTE | 2016-12-06 17:29 | PATHOLOGY ---
PATHOLOGY REPORT * * * * * * * * FINAL DIAGNOSIS: Segments of fibrocartilaginous and skeletal muscle tissue and bone, cervical disc and decompression: - Degenerative changes of fibrocartilaginous tissue. (JPM:jasmine; 12/06/2016) COMMENT: There is no evidence of an acute inflammatory process or malignancy. (JPM:jasmine; 12/06/2016) REPORT ELECTRONICALLY SIGNED BY: Trevin Stack M.D. DATE/TIME: 12/06/2016 17:28 * * * * * * * * GROSS PATHOLOGY: Received in formalin labeled "Radha Grey, cervical disc and decompression" are multiple segments of shelton, rubbery, and gritty tissue admixed with bone. The specimen measures 3.4 x 2.1 x 1.4 cm in aggregate dimensions. The tissue is submitted representatively in cassette A1, following decalcification. (DAC; 12/05/2016) INITIAL CPT CODE(S): A; 03190, 76627 Professional services performed [place] [facility] [place] [address] Technical services performed by [facility] at [address] [place] [address] [address], [place] [address]. SPECIMEN(S) RECEIVED: A.Cervical disc and decompression CLINICAL HISTORY: Cervical stenosis, weakness, radicular cervical pain PATIENT: RADHA GREY /AGE: 4 1950 (Age: 66) PATIENT #: [id number] ALT CASE #: SPECIMEN COLLECTION DATE: 12/04/2016 SPECIMEN RECEIVED DATE: 12/04/2016 [facility] - [address] [place] [address] - PHONE: [phone] * * * END OF REPORT * * *
== END 2016-12-06 13:30 | disposition home or self-care (01) ==
LOC: SURG 08:43 → 4 SOUTHEST 14:10
PROVIDERS: ADMIT Neurological Surgery; ATTEND Neurological Surgery
DX: M48.02 Spinal stenosis, cervical region (principal); M47.12 Other spondylosis with myelopathy, cervical region; M54.12 Radiculopathy, cervical region; M25.78 Osteophyte, vertebrae
CPT/HCPCS: 20931; 22551; 22552; 22845; 76000; 88304; 88311; 96374; 96375; 96376; 97116; 97162; 97166; C1713; G0378; G0379; G8978; G8979; G8987; G8988; J0690; J1100; J1170; J2250; J2270; J2405; J2704; J3010; J3490; J7030; J7120; J2001

== ENCOUNTER → 2016-12-24 | Outpatient (CLI) | payer MEDICARE ==
[2016-12-06 11:15] VITALS: BP 160/94
[~2016-12-24] MED LIST changes: -0.9 % SODIUM CHLORIDE 50 ML VIAL. IJ ONE; -BUPIVAC MPF-EPI 0.5%-1:200000 30 ML VIAL. ONE; -DEXAMETHASONE SOD PHOS 20 MG/5 ML VIAL. ONE; -GELATIN SPONGE SIZE 100. ONE; -IV RINGERS,LACTATED 1000ML 1,000 ML IV SCH; -LIDOCAINE 1% 1 ML SYRINGE. ID PRN; -LIDOCAINE 2% PF Vial for OR 5 ML VIAL. ONE; +METH750T2 PO; -MIDAZOLAM HCL/PF 2 MG/2 ML VIAL. ONE; -MINERAL OIL/PETROLATUM,WHITE OPHTH OINT 3.5GM TUBE. ONE; -ONDANSETRON PF 4 MG/2 ML VIAL. IV PRN; -ONDANSETRON PF 4 MG/2 ML VIAL. ONE; +OXYC1TAB8 PO; -PHENYLEPHRINE 10 MG/ML VIAL. ONE; -PROCHLORPERAZINE 10 MG/2 ML VIAL. IV PRN; -PROPOFOL 20 ML IV ONE; -PROPOFOL 50 ML IV ONE; -REMIFENTANIL 2 MG VIAL. IV ONE; -ROCURONIUM 100 MG/10 ML VIAL. ONE; -THROMBIN TOPICAL 20,000 UNIT SPRAY.SYRN KIT TP ONE; -fentaNYL PF VIAL 100 MCG/2 ML VIAL IV PRN
--- NOTE | 2016-12-24 17:07 | RAD ---
Indication right hindfoot pain. Axial images through the right foot and ankle were obtained. The examination is somewhat limited. No IV contrast was administered. There is diffuse soft tissue swelling of the foot and ankle more so involving the ankle a discrete soft tissue mass or definite abscess is not seen). Again evaluation for abscess is limited in that no IV contrast as been administered). There is partial bony destruction involving the talus at the tibiotalar joint. There is cystic degeneration of a portion of the calcaneus. There are significant degenerative changes at the junction of the talus with the calcaneus. Degenerative changes are seen at the talar navicular joint. The etiology for the findings is unclear. Degenerative change would be unusual. Underlying infection is not excluded. A neuropathic joint should also be considered. Lytic neoplastic disease is not a excluded but is a less likely consideration. IMPRESSION: Bony destruction and some fragmentation involving the talus and calcaneus with additional underlying degenerative changes. Neuropathic joint or infection would be [id number] considerations. PQRS Compliance Statement: One or more of the following individualized dose reduction techniques were utilized for this examination: 1. Automated exposure control 2. Adjustment of the mA and/or kV according to patient size 3. Use of iterative reconstruction technique
== END | disposition home or self-care (01) ==
LOC: CT 12:08
PROVIDERS: ATTEND Orthopaedic Surgery Foot and Ankle Surgery
DX: M21.371 Foot drop, right foot (principal)
CPT/HCPCS: 73700

== ENCOUNTER → 2017-01-02 | Outpatient (CLI) | payer MEDICARE ==
[2016-12-06 11:15] VITALS: BP 160/94
--- NOTE | 2017-01-02 09:58 | RAD ---
EXAM: Cervical spine, 5 views. HISTORY: Pain. COMPARISON: 11/05/2016. FINDINGS: Frontal, lateral, bilateral oblique and odontoid views of the cervical spine are obtained. There is instrumented anterior spinal fusion and interbody fusion and C4-C7. There is anterior positioning of the interbody fusion devices at all levels. There is cervical kyphosis at the fused levels. There is mild anterolisthesis of C2 on C3 and C3 on C4 and C7 on T1. There is degenerative facet arthropathy predominantly at C7-T1. There is disc space narrowing at C3-C4. There is prevertebral soft tissue prominence. There is lateral foraminal narrowing due to facet and uncovertebral arthropathy of the majority of the cervical levels. IMPRESSION: 1. Instrumented fusion at C4-C7. 2. Multilevel degenerative changes in the cervical spine, predominantly at C3-C4 and C7-T1. 3. Cervical kyphosis and multilevel listhesis, described above.
== END | disposition home or self-care (01) ==
LOC: RAD 08:43
PROVIDERS: ATTEND Neurological Surgery
DX: M40.292 Other kyphosis, cervical region (principal)
CPT/HCPCS: 72050

== ENCOUNTER → 2017-01-24 | Outpatient (CLI) | payer MEDICARE ==
[~2017-01-24] MED LIST changes: +CONTRAST GIVEN MC PRN; +IOHEXOL 300 MG/ML 50 ML VIAL. IT ONE; +LIDOCAINE 1% Multi-Dose 20 ML VIAL. ID ONE
--- NOTE | 2017-01-24 16:44 | KCIC ---
Cervical myelogram 01/24/2017 Clinical History: Chronic neck pain which radiates down both arms. Technique: After the risks and benefits of the procedure were explained to the patient, written informed consent was obtained. The patient was placed prone on the fluoroscopy table and the lower back was prepped and draped in sterile fashion. 1% lidocaine was used as a local anesthetic. Under fluoroscopic guidance, the thecal sac of the lumbar cistern was punctured at the L3-L4 level using a 25-gauge Peggy needle using a coaxial technique. After confirming clear CSF return, 6 cc of Isovue-300 were injected through the needle under fluoroscopic guidance. Following this the needle was removed and hemostasis achieved at the puncture site. A sterile bandage was placed in the skin puncture site. The contrast column was advanced under fluoroscopy into the cervical spine. and AP and bilateral oblique digital spot radiographs and crosstable lateral and swimmer's lateral digital radiographs of the cervical spine with an obtained. Following this the patient was taken to CT where CT scan if the cervical spine was performed. This will be reported separately. The patient was then observed for approximately 30 minutes prior to discharge home. The patient tolerated the procedure well and there were no immediate complications. The total fluoroscopic time for this procedure was 3 minutes 13 seconds. 5 digital spot radiographs of the cervical spine were obtained. Findings: Minimal lateral curvature of the cervical spine is seen convex to the left. There is slight reversal of the normal cervical lordosis. There is diffuse osteopenia the visualized bony structures. Patient status post anterior discectomy and fusion using an anterior plate, bone screws and bone graft material at C4-5, C5-6 and C6-7. Degenerative changes are seen involving the remaining cervical disc spaces consisting of varying degrees of disc space narrowing, vertebral endplate sclerosis and minimal to mild anterior vertebral body osteophyte formation. Degenerative changes are seen involving the uncovertebral and facet joints throughout the cervical spine. A mild anterior extradural defect is seen upon the contrast column at C3-4. There is no evidence of complete block of contrast at any level involving the cervical spine. IMPRESSION: Postsurgical and degenerative changes are seen involving the cervical spine as outlined above. Electronically signed by: Antonio Lopez MD (01/24/2017 4:40 PM) [id number]
--- NOTE | 2017-01-24 17:03 | KCIC ---
CT cervical myelogram 01/24/2017 Clinical History: Neck pain which radiates down both arms with numbness. Technique: The study was performed after the patient's cervical myelogram, contiguous, 0.625 mm axial sections were obtained the cervical spine. 2 mm sagittal, coronal and axial reconstructed images of the cervical spine were obtained. Findings: Comparison is made to the patient's MRI of the cervical spine dated 11/05/2016. Additional comparison is made to the patient's cervical myelogram performed earlier today. Sagittal and coronal reconstructed images demonstrate minimal lateral curvature of the cervical spine convex to the left. There is slight reversal of the normal cervical lordosis. The patient is status post anterior discectomy and fusion using an anterior plate, bone screws and bone graft material at C4-5, C5-6 and C6-7. Degenerative changes are seen involving the remaining cervical disc spaces consisting of vertebral endplate sclerosis and minimal to mild anterior and posterior vertebral body osteophyte formation. Disc space narrowing is seen at C3-4.. On the axial images at the C2-3 disc space is a mild generalized disc bulge. Degenerative changes are seen involving the uncovertebral and facet joints, right greater than left. These findings when combined do not result in significant central spinal canal stenosis. Very mild right neural foraminal stenosis is seen. The left neural foramen is patent. At the C3-4 disc space there is a mild to moderate generalized disc bulge. Superimposed on this disc bulge is a focal central disc protrusion. This measures 3 mm in AP diameter. Degenerative changes are seen involving the uncovertebral and facet joints, right greater than left. These findings efface the anterior CSF without resulting in significant central spinal canal stenosis. Mild to moderate right greater than left neural foraminal stenosis is seen. At the C4-5 disc space there is a mild generalized disc bulge. Degenerative changes are seen involving the uncovertebral and facet joints, left greater than right. These findings efface the anterior CSF without resulting in significant central spinal canal stenosis. Moderate to severe left greater than right neural foraminal stenosis is seen. At the C5-6 disc space degenerative changes are seen involving the uncovertebral and facet joints bilaterally. There is posterior vertebral body osteophyte formation. These findings when combine efface the anterior and posterior CSF resulting in moderate central spinal canal stenosis. No cord impingement is seen. Moderate bilateral neural foraminal stenosis is noted. At the C6-7 disc space posterior vertebral body osteophyte formation is seen. Degenerative changes are seen involving the uncovertebral and facet joints, left greater than right. These findings efface the anterior CSF resulting in mild to moderate central spinal canal stenosis without definite cord impingement. Mild to moderate left greater than right neural foraminal stenosis is seen. At the C7- T1 disc space there is a mild generalized disc bulge. Degenerative changes are seen involving the facet joints bilaterally. These findings do not result in significant central spinal canal stenosis. Mild bilateral neural foraminal stenosis is seen. IMPRESSION: 1. Post anterior discectomy and fusion at C4-5, C5-6 and C6-7. 2. Degenerative changes are seen throughout the cervical spine. These findings result in moderate central spinal canal stenosis at C5-6 and mild to moderate central spinal canal stenosis at C6-7 without definite evidence of cord impingement. Very mild right neural foraminal stenosis is seen at C2-3. Mild to moderate right greater than left neural foraminal stenosis is seen at C3-4. Moderate to severe left greater than right neural foraminal stenosis is seen at C4-5. Moderate bilateral neural foraminal stenosis is seen at C5-6. Mild to moderate left greater than right neural foraminal stenosis is seen at C6-7. Electronically signed by: Antonio Lopez MD (01/24/2017 5:00 PM) [email or web address]
== END | disposition home or self-care (01) ==
LOC: KCIC 09:31
PROVIDERS: ATTEND Neurological Surgery
DX: M47.892 Other spondylosis, cervical region (principal); M48.02 Spinal stenosis, cervical region; M25.78 Osteophyte, vertebrae; R20.0 Anesthesia of skin; Z98.890 Other specified postprocedural states
CPT/HCPCS: 72126; 72240; Q9967

== ENCOUNTER → 2017-02-14 | Outpatient (CLI) | payer MEDICARE ==
[~2017-02-14] MED LIST changes: -CONTRAST GIVEN MC PRN; -IOHEXOL 300 MG/ML 50 ML VIAL. IT ONE; -LIDOCAINE 1% Multi-Dose 20 ML VIAL. ID ONE
--- NOTE | 2017-02-14 10:09 | KCIC ---
EXAM: Thoracic spine MRI without contrast. HISTORY: Gait disturbance. TECHNIQUE: Multiplanar, multisequence magnetic resonance imaging of the thoracic spine was performed without contrast. COMPARISON: Lumbar spine MRI performed on the same date. FINDINGS: There is minimal anterolisthesis at the upper thoracic vertebral levels. The thoracic vertebral bodies are normal in height and demonstrate normal marrow signal intensity. There is mild endplate remodeling at multiple levels. There are few small endplate Schmorl's nodes. There is no suspicious osseous lesion. No thoracic spinal cord lesion is seen. The conus terminates at L2. There is instrumented anterior spinal fusion and interbody fusion at C3-C7. This is better characterized on the recent CT mammogram dated 01/24/2017. There is cervical kyphosis and multilevel degenerative change, incompletely evaluated on the current exam. There is no significant thoracic disc herniation or significant thoracic foraminal or central canal stenosis. There is common bile duct dilatation. The ampulla is excluded from the [id number]. This is within normal limits for patient age. There is a suspected left extrarenal pelvis. IMPRESSION: 1. Minimal to mild degenerative changes of the thoracic spine. No significant foraminal or central canal stenosis is seen. 2. No thoracic spinal cord lesion. 3. Degenerative and postoperative changes involving the cervical spine, better characterized on the CT myelogram dated 01/24/2017 4. Please refer to the separate report for the lumbar spine MRI on the same date for additional findings. Electronically signed by: Shelly Velarde MD (02/14/2017 10:06 AM) [email or web address]
--- NOTE | 2017-02-14 10:22 | KCIC ---
EXAM: Lumbar spine MRI without contrast. HISTORY: Gait disturbance. TECHNIQUE: Multiplanar, multisequence magnetic resonance imaging of the lumbar spine was performed without contrast. COMPARISON: Thoracic spine MRI performed on the same date. FINDINGS: There is minimal grade 1 anterolisthesis of L5 on S1, measuring 2 mm. There is mild lumbar scoliosis. There is degenerative endplate remodeling with disc desiccation and at L2-S1. There are multiple endplate Schmorl's nodes. No suspicious osseous lesion is seen. The conus terminates at L1-2. There are postoperative changes at L4-L5, described in detail below. At L1-L2, there is no stenosis. At L2-L3, there is a diffuse disc bulge and endplate osteophytosis. There is minimal facet arthropathy. There is mild bilateral foraminal stenosis with abutment of the exiting left greater than right L2 nerve roots. There is mild central canal stenosis. At L3-L4, there is a right lateral predominant disc bulge and endplate osteophytosis. There is mild facet arthropathy. There is hypertrophy of the ligamentum flavum. There is [id number] bilateral foraminal stenosis with abutment of the exiting L3 nerve roots. There is moderate to severe central canal stenosis. At L4-L5, there is partial laminectomy changes. There is a disc bulge with endplate osteophytosis. There there is a suspected superimposed left foraminal protrusion. There is moderate facet arthropathy. There is mild bilateral foraminal stenosis with abutment of the exiting L4 nerve roots. There is moderate central canal stenosis. At L5-S1, there is a right paracentral disc protrusion superimposed on a disc bulge and endplate remodeling. There is mild bilateral facet arthropathy. There is mild bilateral foraminal stenosis. There is mild central canal stenosis. IMPRESSION: 1. Multilevel degenerative change throughout the lumbar spine, described in detail above. This results in stenosis as before mentioned levels. 2. Lumbar scoliosis and grade 1 anterolisthesis of L5 on S1. 2. Partial laminectomy changes at L4-L5. Electronically signed by: Shelly Velarde MD (02/14/2017 10:19 AM) [email or web address]
== END | disposition home or self-care (01) ==
LOC: KCIC MRI 08:35
PROVIDERS: ATTEND Neurological Surgery
DX: M48.061 Spinal stenosis, lumbar region without neurogenic claudication (principal); R26.9 Unspecified abnormalities of gait and mobility; Z98.890 Other specified postprocedural states
CPT/HCPCS: 72146; 72148

== ENCOUNTER 2017-02-23 07:10 | Emergency (ER) | payer MEDICARE ==
[~2017-02-23] VITALS: Ht 172.7 cm; Wt 68.9 kg
[2017-02-23 07:21] VITALS: BP 167/111
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
[2017-02-23] MEDS ORDERED: IBUPROFEN 600 MG TABLET. PO ONE (08:00)
[2017-02-23] MEDS ORDERED: DIPHTH,PERTUSS(ACELL),TET TOX 0.5 ML DISP.SYRIN. VAX IM ONE (08:00)
--- NOTE | 2017-02-23 08:04 | RAD ---
TOES LEFT Clinical Indication: left great toe hit in the door jam last night Comparison: None. Findings: There is acute traumatic nondisplaced transverse fracture of the proximal metadiaphysis of the great toe distal phalanx. The dorsal fracture line is well seen on the lateral view. The fracture may be incomplete. Cannot exclude a second transverse fracture line near the base on the oblique view. There is probably soft tissue swelling of the great toe. There may be metatarsus primus varus. IMPRESSION: Acute traumatic nondisplaced fracture near the base of the great toe distal phalanx.
[2017-02-23] MEDS ORDERED: HYDROcodone/APAP 10/325 1 TAB TABLET PO ONE (08:45)
== END 2017-02-23 09:01 | disposition home or self-care (01) ==
LOC: ER 07:10
DX: S92.425A Nondisplaced fracture of distal phalanx of left great toe, initial encounter for closed fracture (principal); I12.9 Hypertensive chronic kidney disease with stage 1 through stage 4 chronic kidney disease, or unspecified chronic kidney disease; N18.9 Chronic kidney disease, unspecified; G89.29 Other chronic pain; E03.9 Hypothyroidism, unspecified; Z98.890 Other specified postprocedural states
CPT/HCPCS: 73660; 90471; 90715; 99284-25

== ENCOUNTER → 2017-10-08 | Day surgery (SDC) | payer MEDICARE ==
[~2017-10-08] MED LIST changes: -AMLO5TAB2 PO; -AMOX1TAB11 PO; -Amoxicillin/Potassium Clav PO; -CEPH-264 PO; -DIPH25TA64 PO; -DOCU-150 PO; -ESOM20CA PO; -FENT1PAT17 TD; -FERR-26 PO; -GABA-586 PO; -HYDR-2762 PO; -HYDR-2766 PO; -HYDR-963 PO; -HYDR10SY16 PO; -HYDR10TA2 PO; -IBUP-1060 PO; -IBUP800T19 PO; -LEVO25TA55 PO; -LEVO500T59 PO; +LIDOCAINE 1% PF 2 ML VIAL. ID; -LOSA50TA6 PO; -METH750T2 PO; +MORPHINE SULFATE 2 MG/ML DISP.SYRIN. IV; -MULT-223 PO; -MV-M1TAB34 PO; +ONDANSETRON PF 4 MG/2 ML VIAL. IV; -OXYC1TAB8 PO; +PROCHLORPERAZINE 10 MG/2 ML VIAL. IV; +PROPOFOL 20 ML IV; -SILV400C TOP; -SODI650T PO; -TERA5CAP3 PO; -TEST200V3 IM; -VITA100C4 PO; +fentaNYL PF VIAL 100 MCG/2 ML VIAL IV
[2017-10-08] MEDS: IV RINGERS,LACTATED 1000ML 1,000 ML IV (07:00)
== END | disposition home or self-care (01) ==
LOC: ENDOS 09:04
DX: K21.0 Gastro-esophageal reflux disease with esophagitis (principal); K29.80 Duodenitis without bleeding; K29.50 Unspecified chronic gastritis without bleeding; K31.89 Other diseases of stomach and duodenum; Z87.11 Personal history of peptic ulcer disease; E03.9 Hypothyroidism, unspecified; D64.9 Anemia, unspecified; N40.0 Benign prostatic hyperplasia without lower urinary tract symptoms; D63.1 Anemia in chronic kidney disease; I12.9 Hypertensive chronic kidney disease with stage 1 through stage 4 chronic kidney disease, or unspecified chronic kidney disease; N18.3 Chronic kidney disease, stage 3 (moderate); Z98.890 Other specified postprocedural states; Z79.899 Other long term (current) drug therapy; Z72.89 Other problems related to lifestyle; M19.071 Primary osteoarthritis, right ankle and foot
CPT/HCPCS: 43239; 88305; 88342; J2704

== ENCOUNTER → 2017-10-21 | Outpatient (CLI) | payer MEDICARE | END | disposition home or self-care (01) | LOC: PMGWOUND 10:23 | DX: T81.31XD Disruption of external operation (surgical) wound, not elsewhere classified, subsequent encounter (principal); L89.513 Pressure ulcer of right ankle, stage 3; K21.9 Gastro-esophageal reflux disease without esophagitis; E03.9 Hypothyroidism, unspecified; M19.071 Primary osteoarthritis, right ankle and foot; E78.5 Hyperlipidemia, unspecified; G89.29 Other chronic pain; H91.92 Unspecified hearing loss, left ear; I12.9 Hypertensive chronic kidney disease with stage 1 through stage 4 chronic kidney disease, or unspecified chronic kidney disease; E11.22 Type 2 diabetes mellitus with diabetic chronic kidney disease; N18.3 Chronic kidney disease, stage 3 (moderate); Y83.8 Other surgical procedures as the cause of abnormal reaction of the patient, or of later complication, without mention of misadventure at the time of the procedure | CPT/HCPCS: 99215 ==

== ENCOUNTER → 2017-10-28 | Outpatient (CLI) | payer MEDICARE | END | disposition home or self-care (01) | LOC: PMGWOUND 07:59 | DX: T81.31XA Disruption of external operation (surgical) wound, not elsewhere classified, initial encounter (principal); K21.9 Gastro-esophageal reflux disease without esophagitis; E03.9 Hypothyroidism, unspecified; M19.071 Primary osteoarthritis, right ankle and foot; E78.5 Hyperlipidemia, unspecified; G89.29 Other chronic pain; H91.92 Unspecified hearing loss, left ear; E11.22 Type 2 diabetes mellitus with diabetic chronic kidney disease; I12.9 Hypertensive chronic kidney disease with stage 1 through stage 4 chronic kidney disease, or unspecified chronic kidney disease; N18.3 Chronic kidney disease, stage 3 (moderate); Y92.89 Other specified places as the place of occurrence of the external cause; Y83.8 Other surgical procedures as the cause of abnormal reaction of the patient, or of later complication, without mention of misadventure at the time of the procedure | CPT/HCPCS: 99214 ==

== ENCOUNTER → 2017-11-04 | Outpatient (CLI) | payer MEDICARE | END | disposition home or self-care (01) | LOC: PMGWOUND 07:57 | DX: T81.31XD Disruption of external operation (surgical) wound, not elsewhere classified, subsequent encounter (principal); K21.9 Gastro-esophageal reflux disease without esophagitis; E03.9 Hypothyroidism, unspecified; M19.071 Primary osteoarthritis, right ankle and foot; E78.5 Hyperlipidemia, unspecified; G89.29 Other chronic pain; H91.92 Unspecified hearing loss, left ear; E11.22 Type 2 diabetes mellitus with diabetic chronic kidney disease; I12.9 Hypertensive chronic kidney disease with stage 1 through stage 4 chronic kidney disease, or unspecified chronic kidney disease; N18.3 Chronic kidney disease, stage 3 (moderate); Y92.89 Other specified places as the place of occurrence of the external cause; Y83.8 Other surgical procedures as the cause of abnormal reaction of the patient, or of later complication, without mention of misadventure at the time of the procedure | CPT/HCPCS: 99214 ==

== ENCOUNTER → 2017-11-11 | Outpatient (CLI) | payer MEDICARE | END | disposition home or self-care (01) | LOC: PMGWOUND 07:57 | DX: T81.31XD Disruption of external operation (surgical) wound, not elsewhere classified, subsequent encounter (principal); K21.9 Gastro-esophageal reflux disease without esophagitis; E03.9 Hypothyroidism, unspecified; M19.071 Primary osteoarthritis, right ankle and foot; E78.5 Hyperlipidemia, unspecified; G89.29 Other chronic pain; H91.92 Unspecified hearing loss, left ear; E11.22 Type 2 diabetes mellitus with diabetic chronic kidney disease; I12.9 Hypertensive chronic kidney disease with stage 1 through stage 4 chronic kidney disease, or unspecified chronic kidney disease; N18.3 Chronic kidney disease, stage 3 (moderate); Y83.8 Other surgical procedures as the cause of abnormal reaction of the patient, or of later complication, without mention of misadventure at the time of the procedure | CPT/HCPCS: 99214 ==

== ENCOUNTER → 2017-11-25 | Outpatient (CLI) | payer MEDICARE ==
[2017-10-08 10:32] VITALS: BP 154/72
[~2017-11-25] MED LIST changes: +AMLO5TAB2 PO; +AMOX1TAB11 PO; +Amoxicillin/Potassium Clav PO; +CEPH-264 PO; +DIPH25TA64 PO; +DOCU-150 PO; +ESOM20CA PO; +FENT1PAT17 TD; +FERR325T14 PO; +GABA-586 PO; +HYDR-2762 PO; +HYDR-2766 PO; +HYDR-963 PO; +HYDR10SY16 PO; +HYDR10TA2 PO; +IBUP-1060 PO; +IBUP800T19 PO; +LEVO25TA55 PO; +LEVO500T59 PO; -LIDOCAINE 1% PF 2 ML VIAL. ID; +LOSA50TA6 PO; +METH750T2 PO; -MORPHINE SULFATE 2 MG/ML DISP.SYRIN. IV; +MULT-223 PO; +MV-M1TAB34 PO; -ONDANSETRON PF 4 MG/2 ML VIAL. IV; +OXYC1TAB8 PO; +PANT40VI IVP; -PROCHLORPERAZINE 10 MG/2 ML VIAL. IV; -PROPOFOL 20 ML IV; +SILV400C TOP; +SODI650T PO; +TERA5CAP3 PO; +TEST200V3 IM; +VITA100C4 PO; -fentaNYL PF VIAL 100 MCG/2 ML VIAL IV
== END | disposition home or self-care (01) ==
LOC: PMGWOUND 10:02
PROVIDERS: ATTEND Emergency Medicine Undersea and Hyperbaric Medicine
DX: T81.31XD Disruption of external operation (surgical) wound, not elsewhere classified, subsequent encounter (principal); I12.9 Hypertensive chronic kidney disease with stage 1 through stage 4 chronic kidney disease, or unspecified chronic kidney disease; E11.22 Type 2 diabetes mellitus with diabetic chronic kidney disease; N18.3 Chronic kidney disease, stage 3 (moderate); K21.9 Gastro-esophageal reflux disease without esophagitis; E03.9 Hypothyroidism, unspecified; E78.5 Hyperlipidemia, unspecified; G89.4 Chronic pain syndrome; M19.071 Primary osteoarthritis, right ankle and foot; H91.92 Unspecified hearing loss, left ear; Z79.899 Other long term (current) drug therapy
CPT/HCPCS: 99214; G0463

== ENCOUNTER → 2017-12-02 | Outpatient (CLI) | payer MEDICARE ==
[2017-10-08 10:32] VITALS: BP 154/72
== END | disposition home or self-care (01) ==
LOC: PMGWOUND 10:30
PROVIDERS: ATTEND Emergency Medicine Undersea and Hyperbaric Medicine
DX: T81.31XD Disruption of external operation (surgical) wound, not elsewhere classified, subsequent encounter (principal); I12.9 Hypertensive chronic kidney disease with stage 1 through stage 4 chronic kidney disease, or unspecified chronic kidney disease; E11.22 Type 2 diabetes mellitus with diabetic chronic kidney disease; N18.3 Chronic kidney disease, stage 3 (moderate); G89.4 Chronic pain syndrome; K21.9 Gastro-esophageal reflux disease without esophagitis; E03.9 Hypothyroidism, unspecified; M19.071 Primary osteoarthritis, right ankle and foot; H91.92 Unspecified hearing loss, left ear; E78.5 Hyperlipidemia, unspecified; Z79.899 Other long term (current) drug therapy
CPT/HCPCS: 99214; G0463

== ENCOUNTER → 2017-12-16 | Outpatient (CLI) | payer MEDICARE ==
[2017-10-08 10:32] VITALS: BP 154/72
[~2017-12-16] MED LIST changes: -AMLO5TAB2 PO; +AMLO5TAB7 PO; -LOSA50TA6 PO; +LOSA50TA7 PO
== END | disposition home or self-care (01) ==
LOC: PMGWOUND 09:56
PROVIDERS: ATTEND Emergency Medicine Undersea and Hyperbaric Medicine
DX: T81.89XD Other complications of procedures, not elsewhere classified, subsequent encounter (principal); I12.9 Hypertensive chronic kidney disease with stage 1 through stage 4 chronic kidney disease, or unspecified chronic kidney disease; E11.22 Type 2 diabetes mellitus with diabetic chronic kidney disease; N18.3 Chronic kidney disease, stage 3 (moderate); G89.4 Chronic pain syndrome; K21.9 Gastro-esophageal reflux disease without esophagitis; E78.5 Hyperlipidemia, unspecified; E03.9 Hypothyroidism, unspecified; M19.071 Primary osteoarthritis, right ankle and foot; Y83.8 Other surgical procedures as the cause of abnormal reaction of the patient, or of later complication, without mention of misadventure at the time of the procedure
CPT/HCPCS: 99213

== ENCOUNTER → 2018-03-19 | Outpatient (CLI) | payer MEDICARE ==
[2017-10-08 10:32] VITALS: BP 154/72
[~2018-03-19] MED LIST changes: -GABA-586 PO; +GABA300C18 PO; -HYDR-2762 PO; +HYDR-2765 PO; -HYDR-2766 PO; +HYDR-2769 PO; +HYDR-3135 PO; -HYDR-963 PO; +LOSA-73 PO; -LOSA50TA7 PO
--- NOTE | 2018-03-19 11:29 | KCIC ---
MRI of the lumbar spine without contrast 03/19/2018 CLINICAL HISTORY: Low back pain with which radiates down both legs, left greater than right. Gait disorder. TECHNIQUE: Unenhanced T1-weighted and T2-weighted sagittal and axial and inversion recovery sagittal images of the lumbar spine were obtained. FINDINGS: Comparison study is dated 02/14/2017. Very mild S-shaped curvature of the thoracolumbar spine is seen. Degenerative signal changes are seen involving the L2-3, L3-4, L4-5 and L5-S1 discs. Degenerative signal changes are seen within the marrow surrounding these discs. Loss of height of the L2-3 and L3-4 discs is noted. The conus medullaris is within normal limits in morphology, position, and signal characteristics. The L1-2 disc space is within normal limits. At the L2-3 disc space there is a moderate generalized disc bulge. Degenerative changes are seen involving the facet joints bilaterally. There is moderate ligamentum flavum hypertrophy bilaterally. These findings when combined result in mild to moderate central spinal canal stenosis. No neural foraminal stenosis is seen. At the L3-4 disc space there is a moderate generalized disc bulge. This is eccentric to the right. Degenerative changes are seen involving the facet joints bilaterally. There are small facet joint effusions. There is moderate ligament flavum hypertrophy. Prominence of the posterior epidural fat is seen. These findings when combined result in moderate to severe central spinal canal stenosis. Mild bilateral neural foraminal stenosis is seen. At the L4-5 disc space the patient appears to be post right hemilaminotomy. There is a mild to moderate generalized disc bulge. Degenerative changes are seen involving the facet joints bilaterally. These findings when combined result in mild to moderate central spinal canal stenosis. No neural foraminal stenosis is seen. At the L5-S1 disc space there is a mild generalized disc bulge. This is eccentric to the right. Degenerative changes are seen involving the facet joints bilaterally. These findings do not result in significant central spinal canal stenosis no neural foraminal stenosis is seen. Since the previous examination there has been no significant interval change. IMPRESSION: 1. Patient appears to be post right hemilaminotomy at L4-5. 2. The changes of degenerative disc disease are seen throughout the lumbar spine. These findings result in mild to moderate central spinal canal stenosis at L2-3 and L4-5 and moderate to severe central spinal canal stenosis at L3-4. Mild bilateral neural foraminal stenosis is seen at L3-4. Electronically signed by: Antonio Lopez MD (03/19/2018 11:25 AM) [id number]
== END | disposition home or self-care (01) ==
LOC: KCIC MRI 08:31
PROVIDERS: ATTEND Internal Medicine
DX: M51.16 Intervertebral disc disorders with radiculopathy, lumbar region (principal); M48.061 Spinal stenosis, lumbar region without neurogenic claudication; M25.48 Effusion, other site
CPT/HCPCS: 72148

== ENCOUNTER → 2018-05-13 | Outpatient (CLI) | payer MEDICARE ==
[2017-10-08 10:32] VITALS: BP 154/72
== END | disposition home or self-care (01) ==
LOC: PMGWOUND 08:09
PROVIDERS: ATTEND Emergency Medicine Undersea and Hyperbaric Medicine
DX: T81.31XD Disruption of external operation (surgical) wound, not elsewhere classified, subsequent encounter (principal); I12.9 Hypertensive chronic kidney disease with stage 1 through stage 4 chronic kidney disease, or unspecified chronic kidney disease; E11.22 Type 2 diabetes mellitus with diabetic chronic kidney disease; N18.3 Chronic kidney disease, stage 3 (moderate); E03.9 Hypothyroidism, unspecified; E78.5 Hyperlipidemia, unspecified; M19.90 Unspecified osteoarthritis, unspecified site; Y83.8 Other surgical procedures as the cause of abnormal reaction of the patient, or of later complication, without mention of misadventure at the time of the procedure
CPT/HCPCS: 29581

== ENCOUNTER → 2018-05-16 | Outpatient (CLI) | payer MEDICARE ==
[2017-10-08 10:32] VITALS: BP 154/72
[~2018-05-16] MED LIST changes: +AMLO5TAB10 PO; -AMLO5TAB7 PO; +DOCU-109 PO; -MULT-223 PO; +MULT-629 PO; +PANT20TA2 PO
== END | disposition home or self-care (01) ==
LOC: PMGWOUND 11:02
PROVIDERS: ATTEND Preventive Medicine Undersea and Hyperbaric Medicine
DX: T81.31XD Disruption of external operation (surgical) wound, not elsewhere classified, subsequent encounter (principal); I12.9 Hypertensive chronic kidney disease with stage 1 through stage 4 chronic kidney disease, or unspecified chronic kidney disease; E11.22 Type 2 diabetes mellitus with diabetic chronic kidney disease; N18.3 Chronic kidney disease, stage 3 (moderate); H91.92 Unspecified hearing loss, left ear; E03.9 Hypothyroidism, unspecified; E78.5 Hyperlipidemia, unspecified; M19.90 Unspecified osteoarthritis, unspecified site; Y83.8 Other surgical procedures as the cause of abnormal reaction of the patient, or of later complication, without mention of misadventure at the time of the procedure
CPT/HCPCS: 29581

== ENCOUNTER → 2018-05-22 | Outpatient (CLI) | payer MEDICARE ==
[2017-10-08 10:32] VITALS: BP 154/72
[~2018-05-22] MED LIST changes: -DOCU-109 PO; -PANT20TA2 PO
== END | disposition home or self-care (01) ==
LOC: PMGWOUND 08:17
PROVIDERS: ATTEND Emergency Medicine Undersea and Hyperbaric Medicine
DX: T81.31XD Disruption of external operation (surgical) wound, not elsewhere classified, subsequent encounter (principal); I12.9 Hypertensive chronic kidney disease with stage 1 through stage 4 chronic kidney disease, or unspecified chronic kidney disease; E11.22 Type 2 diabetes mellitus with diabetic chronic kidney disease; N18.3 Chronic kidney disease, stage 3 (moderate); E03.9 Hypothyroidism, unspecified; E78.5 Hyperlipidemia, unspecified; M19.90 Unspecified osteoarthritis, unspecified site; Y83.8 Other surgical procedures as the cause of abnormal reaction of the patient, or of later complication, without mention of misadventure at the time of the procedure; H91.92 Unspecified hearing loss, left ear
CPT/HCPCS: 11042; 29581

== ENCOUNTER → 2018-05-26 | Outpatient (CLI) | payer MEDICARE ==
[2017-10-08 10:32] VITALS: BP 154/72
== END | disposition home or self-care (01) ==
LOC: PMGWOUND 08:04
PROVIDERS: ATTEND Emergency Medicine Undersea and Hyperbaric Medicine
DX: T81.31XD Disruption of external operation (surgical) wound, not elsewhere classified, subsequent encounter (principal); I13.10 Hypertensive heart and chronic kidney disease without heart failure, with stage 1 through stage 4 chronic kidney disease, or unspecified chronic kidney disease; E11.22 Type 2 diabetes mellitus with diabetic chronic kidney disease; N18.3 Chronic kidney disease, stage 3 (moderate); H91.92 Unspecified hearing loss, left ear; E03.9 Hypothyroidism, unspecified; E78.5 Hyperlipidemia, unspecified; M19.90 Unspecified osteoarthritis, unspecified site; Y83.8 Other surgical procedures as the cause of abnormal reaction of the patient, or of later complication, without mention of misadventure at the time of the procedure
CPT/HCPCS: 29581

== ENCOUNTER → 2018-06-02 | Outpatient (CLI) | payer MEDICARE ==
[2017-10-08 10:32] VITALS: BP 154/72
[~2018-06-02] MED LIST changes: +DOCU-109 PO; +PANT20TA2 PO
== END | disposition home or self-care (01) ==
LOC: PMGWOUND 08:02
PROVIDERS: ATTEND Emergency Medicine Undersea and Hyperbaric Medicine
DX: T81.31XD Disruption of external operation (surgical) wound, not elsewhere classified, subsequent encounter (principal); I12.9 Hypertensive chronic kidney disease with stage 1 through stage 4 chronic kidney disease, or unspecified chronic kidney disease; E11.22 Type 2 diabetes mellitus with diabetic chronic kidney disease; N18.3 Chronic kidney disease, stage 3 (moderate); E78.5 Hyperlipidemia, unspecified; E03.9 Hypothyroidism, unspecified; H91.92 Unspecified hearing loss, left ear; M19.90 Unspecified osteoarthritis, unspecified site; Y83.8 Other surgical procedures as the cause of abnormal reaction of the patient, or of later complication, without mention of misadventure at the time of the procedure
CPT/HCPCS: 29581

== ENCOUNTER 2018-06-06 09:34 | Emergency (ER) | payer MEDICARE ==
[~2018-06-06] VITALS: Ht 172.7 cm; Wt 74.4 kg
[~2018-06-06 09:34] MED LIST changes: -DOCU-109 PO; -PANT20TA2 PO
[2018-06-06 09:35] VITALS: BP 211/98
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
[2018-06-20] MEDS ORDERED: DOCU-109 PO (11:19)
== END 2018-06-06 10:27 | disposition home or self-care (01) ==
LOC: ER 09:34
DX: I12.9 Hypertensive chronic kidney disease with stage 1 through stage 4 chronic kidney disease, or unspecified chronic kidney disease (principal); N18.9 Chronic kidney disease, unspecified; E03.9 Hypothyroidism, unspecified; G89.29 Other chronic pain; Z98.890 Other specified postprocedural states
CPT/HCPCS: 99283

== ENCOUNTER → 2018-06-09 | Outpatient (CLI) | payer MEDICARE ==
[2018-06-06 09:35] VITALS: BP 211/98
[~2018-06-09] MED LIST changes: +DOCU-109 PO; +PANT20TA2 PO
== END | disposition home or self-care (01) ==
LOC: PMGWOUND 07:59
PROVIDERS: ATTEND Preventive Medicine Undersea and Hyperbaric Medicine
DX: T81.31XD Disruption of external operation (surgical) wound, not elsewhere classified, subsequent encounter (principal); I13.10 Hypertensive heart and chronic kidney disease without heart failure, with stage 1 through stage 4 chronic kidney disease, or unspecified chronic kidney disease; E11.22 Type 2 diabetes mellitus with diabetic chronic kidney disease; N18.3 Chronic kidney disease, stage 3 (moderate); E78.5 Hyperlipidemia, unspecified; E03.9 Hypothyroidism, unspecified; H91.92 Unspecified hearing loss, left ear; M19.90 Unspecified osteoarthritis, unspecified site; Y83.8 Other surgical procedures as the cause of abnormal reaction of the patient, or of later complication, without mention of misadventure at the time of the procedure
CPT/HCPCS: 29581

== ENCOUNTER → 2018-06-13 | Outpatient (CLI) | payer MEDICARE ==
[2018-06-06 09:35] VITALS: BP 211/98
[2018-06-13 11:42] LABS: BASO % 0 % (0-3); EOS # 0.1 x10^3/uL (0.0-0.7); EOS % 1 % (0-3); HEMATOCRIT 39.7 % (39.0-53.0); HEMOGLOBIN 12.9 g/dL (13.0-17.5); LYMPH % 18 % (24-48); MEAN CORPUSCULAR HEMOGLOBIN 31 pg (25-35); MEAN CORPUSCULAR HGB CONC 33 g/dL (31-37); MEAN CORPUSCULAR VOLUME 97 fL (79-100); MONO # 0.9 x10^3/uL (0.0-1.1); MONO % 16 % (0-9); NEUT # 3.8 x10^3uL (1.8-7.7); NEUT % 65 % (31-73); PLATELET COUNT 340 x10^3/uL (140-400); RED BLOOD COUNT 4.12 x10^6/uL (4.30-5.70); RED CELL DISTRIBUTION WIDTH 15.3 % (11.5-14.5); WHITE BLOOD COUNT 5.8 x10^3/uL (4.0-11.0)
[2018-06-13 12:43] LABS: ALBUMIN 3.6 g/dL (3.4-5.0); CALCIUM 8.6 mg/dL (8.5-10.1); CREATININE 1.3 mg/dL (0.7-1.3); GFR 66.2; POTASSIUM 4.6 mmol/L (3.5-5.1); TOTAL BILIRUBIN 0.4 mg/dL (0.2-1.0); TOTAL PROTEIN 7.2 g/dL (6.4-8.2)
== END | disposition home or self-care (01) ==
LOC: SURGPAT 11:03
PROVIDERS: ATTEND Neurological Surgery
DX: M48.062 Spinal stenosis, lumbar region with neurogenic claudication (principal)
CPT/HCPCS: 36415; 80053; 85025; 87641

== ENCOUNTER → 2018-06-16 | Outpatient (CLI) | payer MEDICARE ==
[2018-06-06 09:35] VITALS: BP 211/98
== END | disposition home or self-care (01) ==
LOC: PMGWOUND 08:00
PROVIDERS: ATTEND Emergency Medicine Undersea and Hyperbaric Medicine
DX: T81.31XD Disruption of external operation (surgical) wound, not elsewhere classified, subsequent encounter (principal); I12.9 Hypertensive chronic kidney disease with stage 1 through stage 4 chronic kidney disease, or unspecified chronic kidney disease; E11.22 Type 2 diabetes mellitus with diabetic chronic kidney disease; N18.3 Chronic kidney disease, stage 3 (moderate); G89.29 Other chronic pain; E78.5 Hyperlipidemia, unspecified; E03.9 Hypothyroidism, unspecified; H91.92 Unspecified hearing loss, left ear; M19.90 Unspecified osteoarthritis, unspecified site; Y83.8 Other surgical procedures as the cause of abnormal reaction of the patient, or of later complication, without mention of misadventure at the time of the procedure
CPT/HCPCS: 99214; G0463

== ENCOUNTER 2018-06-19 07:08 | Observation (INO) | payer MEDICARE ==
--- NOTE | 2018-06-17 10:32 | PREOP HP ---
DATE OF SERVICE: 06/19/2018. DATE OF SURGERY: 06/19/2018. HISTORY OF PRESENT ILLNESS: The patient is a pleasant 67-year-old man who in 1984 underwent 2 lumbar surgeries and had a poor result. He said he developed problems with bilateral foot drop. He has had moderate back and leg pain since that time. He is disabled because of the problem. He relates that over the last year, his pain has become much more severe with pain meds. He rates his pain as an 8/10. He notices low back pain which is worse on the left side. The pain radiates to his posterior thighs and legs. Occasionally, the pain radiates into the lateral thigh and anterior thigh. He notes bilateral foot numbness and tingling, which he feels are old. If he sleeps on his left side, the pain is markedly increased. Sitting markedly increases his pain. He has been taking [place] 10. About a year ago, he underwent physical therapy, which he said was not helpful. One and half year ago, he had undergone epidural steroid injections, which he said helped for a very short time. PAST MEDICAL HISTORY: Arthritis, head or neck injury, swelling of limbs. Hypertension, chest pain. PAST SURGICAL HISTORY: Lumbar surgery in 1984, foot surgery 2018, cervical surgery by Dr. Linder. FAMILY HISTORY: Cancer. SOCIAL HISTORY: Tobacco use: He is a nonsmoker. He is retired. . Exercises weekly. Denies tobacco use. Drinks 4 beers daily. Drinks coffee daily. ALLERGIES: No known drug allergies. CURRENT MEDICATIONS: [place], Sucralfate, sildenafil citrate, levothyroxine sodium. REVIEW OF SYSTEMS: A 12-point review of systems was obtained and is noncontributory except for that mentioned above. PHYSICAL EXAMINATION: NEUROSURGERY EXAMINATION: GENERAL APPEARANCE: Alert, pleasant, no acute distress. HEAD: Normocephalic and atraumatic. SKIN: Warm and dry. MUSCULOSKELETAL: Lumbar paraspinal muscle bulk is normal, restricted range of motion of the lumbar spine, [id number] tenderness of lower lumbar spine with palpation, normal range of motion of the lower extremities bilaterally. EXTREMITIES: No clubbing, cyanosis or edema. NEUROLOGIC: Alert and oriented x 3, normal recent and remote memory, strength 5/5 in bilateral lower extremities except for 0/5 EHL bilaterally. Sensory was intact to light touch in bilateral lower extremities except for decrease in the L5 distribution in both of his feet. Reflexes were trace and symmetric in the lower extremities bilaterally. Negative straight leg raising bilaterally, abnormal gait with bilateral cockup splints. IMAGING: I reviewed a lumbar MRI scan from 03/2018. On that study, there are abnormalities at several levels. At L2-L3, there is mild to moderate central canal stenosis. At L3-L4, there is moderately severe central canal stenosis present. At L4-L5, there are considerable postoperative changes with [id number] central canal stenosis. ASSESSMENT: Spinal stenosis, lumbar region with neurogenic claudication. PLAN: I discussed the situation with the patient. He is developing significant stenosis at L3-L4. I looked at an image in 2006 and felt that at that time, there was no stenosis at L3-L4. I do feel that the stenosis at L3-L4 is contributing to his pain. I explained that his pain and the problem with his lower back is a multifactorial issue related to his diffuse degenerative disease as well as his postoperative problems at L4-L5 and stenosis at L3-L4. I told him I was willing to operate and decompress L3-L4 and see if that would help him. I did describe the surgery in detail. I outlined the technique and risk as well as expected postoperative course. He understands. He would like to go ahead. We will make the arrangements. VLADIMIR RUTLEDGE MD DR: ANDRAE/kevin JOB#: [id number] / [id number] ROMY
[2018-06-19] VITALS (8 sets, daily range): BP systolic 129–169; BP diastolic 71–107
[~2018-06-19] VITALS: Ht 172.7 cm; Wt 74.4 kg
[~2018-06-19 07:08] MED LIST changes: +BACITRACIN 50,000 UNIT in IV NORMAL SALINE 1000ML BAG 1,000 ML IRR ONE; +BUPIVAC MPF-EPI 0.5%-1:200000 30 ML VIAL. ONE; +DEXAMETHASONE SOD PHOS 20 MG/5 ML VIAL. ONE; -DOCU-109 PO; +GELATIN SPONGE SIZE 100. ONE; +HYDROmorphone 2 MG/ML VIAL IV PRN; +IV RINGERS,LACTATED 1000ML 1,000 ML IV SCH; +KETOROLAC 60 MG/2 ML INJ FOR OR. ONE; +LIDOCAINE 1% PF 2 ML VIAL. ID PRN; +LIDOCAINE 2% PF 5 ML VIAL. ONE; +ONDANSETRON PF 4 MG/2 ML VIAL. IV PRN; +ONDANSETRON PF 4 MG/2 ML VIAL. ONE; -PANT20TA2 PO; +PROCHLORPERAZINE 10 MG/2 ML VIAL. IV PRN; +PROPOFOL 20 ML IV ONE; +PROPOFOL 50 ML IV ONE; +REMIFENTANIL 2 MG VIAL. IV ONE; +ROCURONIUM 50 MG/5 ML VIAL. ONE; +THROMBIN TOPICAL 20,000 UNIT SPRAY.SYRN KIT TP ONE; +fentaNYL PF VIAL 100 MCG/2 ML VIAL IV PRN
[2018-06-19] MEDS ORDERED: PANT20TA2 PO (07:34)
[2018-06-19] MEDS ORDERED: PHENYLEPHRINE 10 MG/ML VIAL. ONE (08:24)
[2018-06-19] MEDS ORDERED: GLYCOPYRROLATE 1 MG/5 ML VIAL. ONE (08:28)
[2018-06-19] MEDS ORDERED: MIDAZOLAM HCL/PF 2 MG/2 ML VIAL. IV ONE (09:15)
[2018-06-19] MEDS ORDERED: PROPOFOL 50 ML IV ONE (10:21)
[2018-06-19] MEDS ORDERED: DESFLURANE > 120 MINUTES IH ONE (10:21)
[2018-06-19] MEDS ORDERED: NALOXONE 0.4 MG/ML VIAL. IV PRN (11:30)
[2018-06-19] MEDS ORDERED: ONDANSETRON PF 4 MG/2 ML VIAL. IV PRN (11:30)
[2018-06-19] MEDS ORDERED: MAG HYDROX/ALUMINUM HYD/SIMETH 30 ML ORAL.SUSP PO PRN (11:30)
[2018-06-19] MEDS ORDERED: diphenhydrAMINE HCL 25 MG CAPSULE PO PRN (11:30)
[2018-06-19] MEDS ORDERED: MAGNESIUM HYDROXIDE 2,400 MG/30 ML ORAL.SUSP. PO PRN (11:30)
[2018-06-19] MEDS ORDERED: ACETAMINOPHEN 325 MG TABLET. PO PRN (11:30)
[2018-06-19] MEDS ORDERED: 0.9 % SODIUM CHLORIDE 10 ML DISP.SYRIN. IV PRN (11:30)
[2018-06-19] MEDS ORDERED: CALCIUM CARBONATE 500 MG TAB.CHEW PO PRN (11:30)
[2018-06-19] MEDS ORDERED: fentaNYL PF VIAL 100 MCG/2 ML VIAL ONE ×2 (11:41→12:11)
[2018-06-19] MEDS: fentaNYL PF VIAL 100 MCG/2 ML VIAL IV PRN ×5 (11:44→23:18)
--- NOTE | 2018-06-19 11:50 | OP ---
DATE OF SURGERY: 06/19/2018 PREOPERATIVE DIAGNOSIS: Lumbar spinal stenosis, L3-L4. POSTOPERATIVE DIAGNOSES: Lumbar spinal stenosis, L3-L4 with herniated lumbar disc, left L3-L4. OPERATION PERFORMED: 1. Bilateral hemilaminotomies with decompression of dura and nerve root at L3-L4. 2. Lumbar microdiscectomy, left L3-L4. The operation was done with EMG monitoring, SSEP monitoring, fluoroscopy and microscopic dissection. SURGEON: Vasquez Rutledge M.D. KEY OPERATOR: JENNI Mercer, assisted with the surgery. She assisted with the microdecompression as well as the closure. OPERATIVE INDICATIONS: The patient is a pleasant 67-year-old man who developed intractable back and bilateral leg pain and was found to have moderately severe stenosis at L3-L4. He had previous surgery in the past and was disabled from that and that surgery was done below this level, but on review of his previous scans, it was ascertainable that he was gradually developing more and more severe stenosis at L3-L4. I felt that it was now quite symptomatic. I recommended lumbar microsurgery at this level. I spoke about the surgery and the risks, the technique and expected postoperative course and he wished to go ahead. DESCRIPTION OF PROCEDURE: Following general endotracheal anesthesia, the patient was positioned prone on the Abdelrahman frame. Lumbar region was prepped and draped in the standard fashion. BILLY hose and AV impulse boots were applied for DVT prophylaxis. The microscope was draped. Fluoroscopy was draped and brought into field. Monitoring was established. Ancef 2 grams was given less than 1 hour prior to initiation of the surgery. Using fluoroscopic guidance, a midline incision was made directly over the L3-L4 interspace. I dissected it down through skin and subcutaneous tissue and first reflected the paraspinal muscles to the left and placed a [place] micro disc retractor and brought in the microscope. Using the high-speed air drill and microscopic technique, I burred down a generous hemilaminotomy and partial foraminotomy. I then trimmed away the ligamentum flavum, peeling it from medial to lateral. I worked right to the midline and slightly lateral to the medial edge of the pedicle. I removed the ligamentum flavum and exposed the dura and the exiting L4 root. I gently retracted the root medially. There was a large bulging disc beneath this and I retracted the root gently, incised the annulus and ligament, removed subligamentous disc fragments, followed by removing disc material from within the disc space. As I worked, the region became very well decompressed and the root very mobile. I finished this and explored carefully. The roots were very free. I did work through the midline and removed some of the epidural fat in the posterior midline. I then irrigated copiously, removed the retractor from this side, obtained hemostasis in the muscle and then switched to the contralateral side of the table and reflected the paraspinal muscles, placing the [place] micro disc retractor and bringing in the microscope. Again, I burred down a generous hemilaminotomy on this side, again performing a partial foraminotomy. I worked from the midline out laterally and peeled the ligamentum flavum away, exposing the dura and the exiting root. There was considerable hypertrophic bone on this side compressing the dura markedly and I gently freed this up. This bone was scarred to the underlying dura and it required gentle dissection to peel this away. There were no problems with this, however. I did retract the root medially. The disc was bulging slightly, but very firm and no discectomy was warranted on this side. I did obtain hemostasis by coagulating a few small epidural veins and used small amounts of bone wax, but the hemostasis was excellent on either side throughout the case. I irrigated again, removed the retractor, irrigated a third time, obtained hemostasis in the muscle on this side and then I closed the wound in layers with absorbable suture and the skin was closed with 4-0 subcuticular stitch. The operation went very well. I was quite pleased with the surgery. VASQUEZ RUTLEDGE MD DR: ANDRAE/kevin JOB#: [id number] / [id number] ROMY
[2018-06-19] MEDS ORDERED: ceFAZolin 2GM PREMIX 2 GM/50 ML BAG IV ONE (12:00)
[2018-06-19] MEDS ORDERED: MORPHINE SULFATE 2 MG/ML VIAL. ONE (12:11)
[2018-06-19] MEDS: MORPHINE SULFATE 2 MG/ML VIAL. IV PRN ×3 (12:39→13:35)
[2018-06-19] MEDS: POTASSIUM CL 20MEQ D5-0.45NACL 1,000 ML IV SCH (13:00)
[2018-06-19] MEDS ORDERED: hydrALAZINE 20 MG/ML VIAL. IVP ONE (13:00)
[2018-06-19] MEDS: GABAPENTIN 300 MG CAPSULE. PO SCH ×2 (14:00→20:56)
[2018-06-19] MEDS: METHOCARBAMOL 750 MG TABLET PO SCH ×2 (14:01→20:55)
[2018-06-19] MEDS: HYDROcodone/APAP 10/325 1 TAB TABLET PO PRN ×3 (14:01→20:56)
--- NOTE | 2018-06-19 15:13 | NUR ---
Received from PACU per bed, alert/oriented, dressing to lumbar area intact with 2 small areas of drainage noted, ice pack applied for discomfort, 10/15, RLE ankle has foam dressing that dry & intact, seen by [facility] this week, oriented to surroundings, call light in reach,side rails up x3
--- NOTE | 2018-06-19 18:11 | NUR ---
Medigrip placed on RLE per pt request that was brought in from home, continue to have edema in RLE
--- NOTE | 2018-06-19 18:27 | NUR ---
Up to bedside chair with 1 person mod assist, gait unsteady, asked if uses devices at home stated no but has cane, informed therapy would see in am may need to start using devices for safety, call light in reach
[2018-06-19] MEDS: DOCUSATE SODIUM 100 MG CAPSULE. PO SCH (20:56)
[2018-06-20] MEDS: POTASSIUM CL 20MEQ D5-0.45NACL 1,000 ML IV SCH (02:17)
[2018-06-20] MEDS: HYDROcodone/APAP 10/325 1 TAB TABLET PO PRN ×3 (02:19→12:36)
[2018-06-20 03:00] VITALS: BP 149/91
[2018-06-20] MEDS: fentaNYL PF VIAL 100 MCG/2 ML VIAL IV PRN ×2 (03:28→06:23)
[2018-06-20 06:00] VITALS: BP 149/71
[2018-06-20] MEDS ORDERED: LEVOTHYROXINE 25 MCG TABLET. PO SCH (06:00)
[2018-06-20] MEDS ORDERED: PANTOPRAZOLE 40 MG TABLET.DR. PO SCH (07:30)
[2018-06-20 07:59] VITALS: BP 139/85
[2018-06-20] MEDS: DOCUSATE SODIUM 100 MG CAPSULE. PO SCH (08:00)
[2018-06-20] MEDS: METHOCARBAMOL 750 MG TABLET PO SCH (08:01)
[2018-06-20] MEDS: GABAPENTIN 300 MG CAPSULE. PO SCH (08:01)
[2018-06-20] MEDS ORDERED: LOSARTAN POTASSIUM 50 MG TABLET. PO SCH (09:00)
[2018-06-20] MEDS ORDERED: amLODIPine BESYLATE 5 MG TABLET PO SCH (09:00)
[2018-06-20] MEDS ORDERED: MULTIVITAMIN with MINERAL TABLET. PO SCH (09:00)
--- NOTE | 2018-06-20 10:01 | NUR ---
Dr. Johnson here for courtesy visit
[2018-06-20 11:00] VITALS: BP 151/96
--- NOTE | 2018-06-20 11:15 | PDOC ---
PROGRESS NOTES Subjective Subjective POD #1 Sitting on side of bed ambulated with PT incisional/ back pain Objective Objective Vital Signs Date Time Temp Pulse Resp B/P (MAP) Pulse Ox O2 Delivery O2 Flow Rate FiO2 06/20/18 09:00 Room Air 06/20/18 08:01 90 139/85 06/20/18 06:23 22 100 06/20/18 06:00 97.6 97.6 06/19/18 19:45 8.0 Intake and Output 06/20/18 07:00 Intake Total 3690 ml Output Total 510 ml Balance 3180 ml Intake Oral 1940 ml IV Total 1750 ml Output Urine Total 500 ml Estimated Blood Loss 10 ml # Voids 2 Physical Exam General: Alert, Oriented X3, Cooperative MUSCULOSKELETAL: Other (GIL) Neuro: Normal speech Skin: Other (dressing intact, dry, flat) Assessment Assessment may dc home f/u 2 weeks Comment Review of Relevant I have reviewed the following items sharyn (where applicable) has been applied. Medications Current Medications Ondansetron HCl (Zofran) 4 mg PRN Q6HRS PRN IV NAUSEA/VOMITING; Start 06/19/18 at 07:00; Stop 06/19/18 at 11:37; Status DC Fentanyl Citrate (Fentanyl 2ml Vial) 25 mcg PRN Q5MIN PRN IV MILD PAIN; Start 06/19/18 at 07:00; Stop 06/19/18 at 14:05; Status DC Fentanyl Citrate (Fentanyl 2ml Vial) 50 mcg PRN Q5MIN PRN IV MODERATE TO SEVERE PAIN Last administered on 06/19/18at 12:27; Start 06/19/18 at 07:00; Stop 06/19/18 at 14:05; Status DC Morphine Sulfate (Morphine Sulfate) 1 mg PRN Q10MIN PRN IV SEVERE PAIN Last administered on 06/19/18at 13:35; Start 06/19/18 at 07:00; Stop 06/19/18 at 14:05 ; Status DC Ringer's Solution 1,000 ml @ 30 mls/hr Q24H IV Last administered on 06/19/18at 07:43; Start 06/19/18 at 07:00; Stop 06/19/18 at 14:05; Status DC Lidocaine HCl (Xylocaine-Mpf 1% 2ml Vial) 2 ml PRN 1X PRN ID PRIOR TO IV START ; Start 06/19/18 at 07:00; Stop 06/19/18 at 14:05; Status DC Hydromorphone HCl (Dilaudid) 0.5 mg PRN Q10MIN PRN IV SEV PAIN, Second choice; Start 06/19/18 at 07:00; Stop 06/19/18 at 14:05; Status DC Prochlorperazine Edisylate (Compazine) 5 mg PACU PRN PRN IV NAUSEA, MRX1 Last administered on 06/19/18at 11:56; Start 06/19/18 at 07:00; Stop 06/19/18 at 14:05 ; Status DC Bacitracin 74640 unit/Sodium Chloride 1,000 ml @ 1,000 mls/hr 1X ONCE IRR Last administered on 06/19/18at 09:40; Start 06/19/18 at 06:00; Stop 06/19/18 at 06:59; Status DC Cefazolin Sodium/ Dextrose 50 ml @ 100 mls/hr 1X PREOP PRN IV PRIOR TO PROCEDURE Last administered on 06/19/18at 09:19; Start 06/19/18 at 06:00; Stop at 18:00; Status DC Dexamethasone Sodium Phosphate (Decadron) 20 mg STK-MED ONCE .ROUTE ; Start at 06:54; Stop 06/19/18 at 06:55; Status DC Ondansetron HCl (Zofran) 4 mg STK-MED ONCE .ROUTE ; Start 06/19/18 at 06:54; Stop 06/19/18 at 06:55; Status DC Lidocaine HCl (Lidocaine Pf 2% Vial) 5 ml STK-MED ONCE .ROUTE ; Start 06/19/18 at 06:54; Stop 06/19/18 at 06:55; Status DC Propofol 20 ml @ As Directed STK-MED ONCE IV ; Start 06/19/18 at 06:54; Stop at 06:55; Status DC Propofol 50 ml @ As Directed STK-MED ONCE IV ; Start 06/19/18 at 06:54; Stop at 06:55; Status DC Remifentanil HCl (Ultiva) 2 mg STK-MED ONCE IV ; Start 06/19/18 at 06:54; Stop 06/19/18 at 06:55; Status DC Rocuronium Dema (Zemuron) 50 mg STK-MED ONCE .ROUTE ; Start 06/19/18 at 06:55 ; Stop 06/19/18 at 06:56; Status DC Remifentanil HCl (Ultiva) 2 mg STK-MED ONCE IV ; Start 06/19/18 at 06:57; Stop 06/19/18 at 06:58; Status DC Gelatin (Gelfoam Size 100) 1 each STK-MED ONCE .ROUTE Last administered on at 09:40; Start 06/19/18 at 06:18; Stop 06/19/18 at 07:18; Status DC Bupivacaine HCl/ Epinephrine Bitart (Sensorcain-Mpf Epi 0.5%-1:[id number]) 30 ml STK -MED ONCE .ROUTE Last administered on 06/19/18at 09:40; Start 06/19/18 at 06:18 ; Stop 06/19/18 at 07:18; Status DC Ketorolac Tromethamine (Toradol For Or Only) 60 mg STK-MED ONCE .ROUTE Last administered on 06/19/18at 09:40; Start 06/19/18 at 06:18; Stop 06/19/18 at 07:19 ; Status DC Thrombin 20,000 unit STK-MED ONCE TP Last administered on 06/19/18at 09:40; Start 06/19/18 at 06:18; Stop 06/19/18 at 07:19; Status DC Phenylephrine HCl (Kristian-Synephrine Inj) 10 mg STK-MED ONCE .ROUTE ; Start at 08:24; Stop 06/19/18 at 08:25; Status DC Glycopyrrolate (Robinul) 1 mg STK-MED ONCE .ROUTE ; Start 06/19/18 at 08:28; Stop 06/19/18 at 08:29; Status DC Midazolam HCl (Versed) 1 mg 1X ONCE IV ; Start 06/19/18 at 09:15; Stop at 09:17; Status DC Propofol 50 ml @ As Directed STK-MED ONCE IV ; Start 06/19/18 at 10:21; Stop at 10:22; Status DC Desflurane (Suprane) 90 ml STK-MED ONCE IH ; Start 06/19/18 at 10:21; Stop 06/19 at 10:22; Status DC Amlodipine Besylate (Norvasc) 5 mg DAILY PO Last administered on 06/20/18at 08: 01; Start 06/20/18 at 09:00 Gabapentin (Neurontin) 300 mg TID PO Last administered on 06/20/18 08:01; Start 06/19/18 at 14:00 Losartan Potassium (Cozaar) 50 mg DAILY PO Last administered on 06/20/18 08:01 ; Start 06/20/18 at 09:00 Levothyroxine Sodium (Synthroid) 25 mcg DAILY06 PO Last administered on 06:22; Start 06/20/18 at 06:00 Multivitamins (Thera M Plus) 1 tab DAILY PO Last administered on 06/20/18 08: 01; Start 06/20/18 at 09:00 Pantoprazole Sodium (Protonix) 40 mg DAILYAC PO Last administered on 06/20/18at 06:22; Start 06/20/18 at 07:30 Acetaminophen (Tylenol) 650 mg PRN Q6HRS PRN PO MILD PAIN / TEMP; Start at 11:30 Al Hydroxide/Mg Hydroxide (Mylanta Plus Xs) 30 ml PRN Q3HRS PRN PO HEARTBURN / GAS; Start 06/19/18 at 11:30 Calcium Carbonate/ Glycine (Tums) 500 mg PRN Q3HRS PRN PO INDIGESTION; Start at 11:30 Diphenhydramine HCl (Benadryl) 25 mg PRN Q6HRS PRN PO ITCHING; Start 06/19/18 at 11:30 Naloxone HCl (Narcan) 0.1 mg PRN Q2MIN PRN IV ADMIN; Start 06/19/18 at 11:30 Sodium Chloride (Normal Saline Flush) 3 ml QSHIFT PRN IV AFTER MEDS AND BLOOD DRAWS; Start 06/19/18 at 11:30 Potassium Chloride/Dextrose/ Sod Cl 1,000 ml @ 75 mls/hr [id number] IV ; Start at 13:00 Methocarbamol (Robaxin) 750 mg TID PO Last administered on 06/20/18at 08:01; Start 06/19/18 at 14:00 Docusate Sodium (Colace) 100 mg BID PO Last administered on 06/20/18at 08:00; Start 06/19/18 at 21:00 Magnesium Hydroxide (Milk Of Magnesia) 2,400 mg PRN Q12HR PRN PO CONSTIPATION; Start 06/19/18 at 11:30 Ondansetron HCl (Zofran) 4 mg PRN Q6HRS PRN IV NAUESA, 1ST CHOICE; Start at 11:30 Acetaminophen/ Hydrocodone Bitart (Lortab 10/325) 1 tab PRN Q6HRS PRN PO PAIN Last administered on 06/20/18at 02:19; Start 06/19/18 at 11:30 Acetaminophen/ Hydrocodone Bitart (Lortab 10/325) 2 tab PRN Q6HRS PRN PO PAIN Last administered on 06/20/18at 09:00; Start 06/19/18 at 11:30 Fentanyl Citrate (Fentanyl 2ml Vial) 50 mcg PRN Q2HR PRN IV PAIN Last administered on 06/20/18at 06:23; Start 06/19/18 at 11:30 Fentanyl Citrate (Fentanyl 2ml Vial) 100 mcg STK-MED ONCE .ROUTE ; Start at 11:41; Stop 06/19/18 at 11:42; Status DC Fentanyl Citrate (Fentanyl 2ml Vial) 100 mcg STK-MED ONCE .ROUTE ; Start at 12:11; Stop 06/19/18 at 12:12; Status DC Morphine Sulfate (Morphine Sulfate) 2 mg STK-MED ONCE .ROUTE ; Start 06/19/18 at 12:11; Stop 06/19/18 at 12:12; Status DC Hydralazine HCl (Apresoline Inj) 10 mg 1X ONCE IVP Last administered on at 12:58; Start 06/19/18 at 13:00; Stop 06/19/18 at 13:01; Status DC Active Scripts Active [place] 10-325 Tablet (Acetaminophen/Hydrocodone Bitart) 1 Each Tablet 1-2 Tab PO Q4-6HRS Amlodipine Besylate 5 Mg Tablet 5 Mg PO DAILY Synthroid (Levothyroxine Sodium) 25 Mcg Tablet 25 Mcg PO DAILY07 Reported Protonix (Pantoprazole Sodium) 20 Mg Tablet.dr 1 Tab PO DAILY Losartan Potassium 50 Mg Tablet 50 Mg PO DAILY Gabapentin (Gabapentin) 300 Mg Capsule 300 Mg PO TID last dose this am nex dose at 2 pm One Daily (Multivitamin) 1 Each Tablet 1 Each PO DAILY last dose this am next dose tomorrow am Vitals/I & O Vital Sign - Last 24 Hours 06/19/18 06/19/18 06/19/18 06/19/18 11:22 11:22 11:39 11:44 Temp 98.1 98.1 98.1 98.1 Pulse 98 100 Resp 20 B/P (MAP) 162/99 159/111 Pulse Ox 100 100 99 O2 Delivery Mask Simple Mask Simple Mask Simple Mask O2 Flow Rate 8 8 8.0 06/19/18 06/19/18 06/19/18 06/19/18 11:54 11:57 12:09 12:16 Temp 98.1 98.1 98.1 98.1 Pulse 100 96 Resp 18 B/P (MAP) 174/90 183/104 Pulse Ox 97 98 97 100 O2 Delivery Room Air Room Air Room Air Room Air 06/19/18 06/19/18 06/19/18 06/19/18 12:24 12:27 12:39 12:45 Temp 98.1 98.1 98.1 98.1 Pulse 92 96 Resp B/P (MAP) 179/103 187/103 Pulse Ox 100 100 100 98 O2 Delivery Room Air Room Air Room Air Room Air 06/19/18 06/19/18 06/19/18 06/19/18 12:55 12:58 13:00 13:15 Temp 98.1 98.1 98.1 98.1 Pulse 97 90 94 Resp 17 16 B/P (MAP) 168/105 183/99 173/87 Pulse Ox 100 100 100 O2 Delivery Room Air Room Air Room Air 06/19/18 06/19/18 06/19/18 06/19/18 13:35 13:45 14:00 14:01 Temp 98.2 98.2 Pulse 101 99 Resp 18 18 B/P (MAP) 164/107 (126) 166/104 (124) Pulse Ox 100 100 100 O2 Delivery Room Air Room Air Room Air Room Air 06/19/18 06/19/18 06/19/18 06/19/18 14:15 14:15 14:30 15:21 Pulse 114 105 105 Resp 18 B/P (MAP) 165/93 (117) 169/99 (122) 163/98 (119) Pulse Ox 96 O2 Delivery Room Air Room Air Room Air 06/19/18 06/19/18 06/19/18 06/19/18 16:30 17:19 19:00 19:02 Temp 98.5 98.5 Pulse 107 97 B/P (MAP) 135/94 (108) 129/71 (90) Pulse Ox 100 96 O2 Delivery Room Air Room Air Room Air O2 Flow Rate 8.0 06/19/18 06/19/18 06/19/18 06/19/18 19:45 20:56 22:00 23:00 Temp 98.6 98.6 Pulse 106 Resp 20 20 B/P (MAP) 157/80 (105) Pulse Ox 96 97 O2 Delivery Room Air Room Air Room Air Room Air O2 Flow Rate 8.0 06/20/18 06/20/18 06/20/18 06/20/18 00:01 02:19 03:00 04:00 Temp 97.6 97.6 Pulse 89 Resp 18 20 18 B/P (MAP) 149/91 (110) Pulse Ox 97 97 100 O2 Delivery Room Air Room Air 06/20/18 06/20/18 06/20/18 06/20/18 06:00 06:23 07:36 07:48 Temp 97.6 97.6 Pulse 89 Resp 20 22 B/P (MAP) 149/71 (97) Pulse Ox 100 100 O2 Delivery Room Air Room Air Room Air Room Air 06/20/18 06/20/18 06/20/18 06/20/18 07:59 08:01 08:01 09:00 Pulse 90 90 90 B/P (MAP) 139/85 (103) 139/85 139/85 O2 Delivery Room Air Intake and Output 06/19/18 06/19/18 06/20/18 15:00 23:00 07:00 Intake Total 1050 ml 1780 ml 860 ml Output Total 10 ml 300 ml 200 ml Balance 1040 ml 1480 ml 660 ml VLADIMIR RUTLEDGE MD Jun 20, 2018 11:15
--- NOTE | 2018-06-20 11:17 | DISCH ---
DISCHARGE INSTRUCTIONS Condition on Discharge Condition on Discharge: Stable Activity After Discharge Activity Instructions for Disc: Activity as tolerated, Avoid exertion Bathing Instructions: Shower-keep dressing dry, No Tub Bath until see Lifting Instructions after Dis: No heavy lifting, No pulling or pushing, Do not lift >10 pounds Exercise Instruction after Dis: Progress as tolerated Driving Instructions after Dis: No driving for 2 weeks Weight Bearing Status after Di: No restrictions Diet after Discharge Diet after Discharge: [place] Additional Diet Restrictions: resume home diet Diet Texture: Regular Liquid Texture: Thin Liquid Swallowing Supervision: None needed Wound Incision Care Wound/Incision Care: Ice to area for comfort Other wound/incision instructi: may remove dressing in 48 hours if dry then may shower, no soaking Wound Care Equipment: Dressings Checks after Discharge Checks after discharge: Check blood press - daily Contacting the after DC Call your doctor for: Concerns you may have Follow-Up Follow up with: Dr. Rutledge's nurse in 2 weeks [phone] Treatment/Equipment after DC Adaptive Equipment Issued: None VLADIMIR RUTLEDGE MD Jun 20, 2018 11:17
[2018-06-20] MEDS ORDERED: DOCU-109 PO (11:19)
--- NOTE | 2018-06-20 12:42 | NUR ---
Discharge instructions given with follow up to Dr. Hou's office in 2 weeks. Dressing changed to lumbar area with serosanguineous drainage noted, gauze pads & composite dressing applied. supplies given for home-4x4, composite dressings, chlora-prep swabs, ice pack, clean urinal & medigrip stocking. See instruction sheet for details. Awaiting spouses arrival for transport home
--- NOTE | 2018-06-20 17:08 | PATHOLOGY ---
[facility] Accession Number: [id number] . 01 Material submitted: . LUMBAR DECOMPRESSION AND DISC . 01 Clinical history: . Lumbar stenosis with neurogenic claudication . 02 Diagnosis: Segments of fibrocartilaginous, adipose, and skeletal muscle tissue and bone, lumbar decompression and disc: - Degenerative changes of fibrocartilaginous tissue. (JPM:[facility] 06/20/2018) P/06/20/2018 . 02 Comment: There is no evidence of an acute inflammatory process or malignancy. (JPM:[facility] 06/20/2018) . 02 Electronically signed: . Trevin Stack MD, Pathologist NPI- [id number] . 01 Gross description: . The specimen is received in formalin, labeled "Radha Sanders, lumbar decompression and disc" and consists of multiple fragments of pink-shelton tissue and bone measuring 4.0 x 3.4 x 0.8 cm in aggregate. A labor representative portion is submitted in A1 following decalcification. (SDY; 06/19/2018) SYU/SYU . 02 Pathologist provided ICD-10: M47.896 . 02 CPT . 460843, [id number] Specimen Comment: A courtesy copy of this report has been sent to Specimen Comment: [phone], . Specimen Comment: Report sent to / DR OSORIO Specimen Comment: A duplicate report has been generated due to demographic updates. Performed at: 01 [facility] [address], [place] [id number] MD Reyes Kilgore MD Phone: [phone] Performed at: 02 [facility] [id number] MD Trevin Stack MD Phone: [phone]
--- NOTE | 2018-06-20 19:12 | DS ---
DATE OF DISCHARGE: 06/20/2018 DATE OF SURGERY: 06/19/2018 DISCHARGE DIAGNOSIS: Lumbar spinal stenosis, L3-L4. OPERATION PERFORMED: Bilateral hemilaminotomies with decompression of the dura and nerve root and lumbar microdiskectomy L3-L4. HISTORY OF PRESENT ILLNESS: The patient is a pleasant 67-year-old man who developed intractable back and bilateral leg pain and was found to have moderate stenosis at L3-L4. He had previous surgery in the past and was disabled from that. Surgery was done below this level, but on following his previous scans, it was ascertainable that he was gradually developing more and more severe stenosis at L3-L4, which I felt was quite symptomatic. I recommended lumbar microsurgery at this level. He understood the surgery, the risk and the expected postoperative course and wished to go ahead. HOSPITAL COURSE: He was admitted to the floor. Postoperatively, he has done well. He was able to be up ambulating with physical therapy. Instruction was given to him regarding his activities. His pain is controlled with medications and he is in good condition to discharge home. DISCHARGE MEDICATIONS: Resume his medications per the MRAD. DISCHARGE INSTRUCTIONS: He was instructed regarding incision care, activity restrictions and expectations for the next several weeks. He will follow up in the office in 2 weeks. He will also follow up with his primary care doctor. He understands to call with any questions or concerns. VLADIMIR RUTLEDGE MD DR: ARANZA/kevin JOB#: [id number] / [id number]
== END 2018-06-20 13:02 | disposition home or self-care (01) ==
LOC: SURG 07:08 → 4 SOUTHEST 11:09
PROVIDERS: ADMIT Neurological Surgery; ATTEND Neurological Surgery
DX: M48.062 Spinal stenosis, lumbar region with neurogenic claudication (principal); M19.90 Unspecified osteoarthritis, unspecified site; I10 Essential (primary) hypertension; R07.9 Chest pain, unspecified; M51.26 Other intervertebral disc displacement, lumbar region
CPT/HCPCS: 63030; 76000; 88304; 88311; 96374; 96376; 97161; A7015; G0378; G0379; J0360; J0696; J0780; J1100; J1885; J2001; J2270; J2405; J2704; J3010; J3490; J7030; J7120

== ENCOUNTER → 2018-06-23 | Outpatient (CLI) | payer MEDICARE ==
[2018-06-20 11:00] VITALS: BP 151/96
[~2018-06-23] MED LIST changes: -BACITRACIN 50,000 UNIT in IV NORMAL SALINE 1000ML BAG 1,000 ML IRR ONE; -BUPIVAC MPF-EPI 0.5%-1:200000 30 ML VIAL. ONE; -DEXAMETHASONE SOD PHOS 20 MG/5 ML VIAL. ONE; +DOCU-109 PO; -GELATIN SPONGE SIZE 100. ONE; -HYDROmorphone 2 MG/ML VIAL IV PRN; -IV RINGERS,LACTATED 1000ML 1,000 ML IV SCH; -KETOROLAC 60 MG/2 ML INJ FOR OR. ONE; -LIDOCAINE 1% PF 2 ML VIAL. ID PRN; -LIDOCAINE 2% PF 5 ML VIAL. ONE; -ONDANSETRON PF 4 MG/2 ML VIAL. IV PRN; -ONDANSETRON PF 4 MG/2 ML VIAL. ONE; +PANT20TA2 PO; -PROCHLORPERAZINE 10 MG/2 ML VIAL. IV PRN; -PROPOFOL 20 ML IV ONE; -PROPOFOL 50 ML IV ONE; -REMIFENTANIL 2 MG VIAL. IV ONE; -ROCURONIUM 50 MG/5 ML VIAL. ONE; -THROMBIN TOPICAL 20,000 UNIT SPRAY.SYRN KIT TP ONE; -fentaNYL PF VIAL 100 MCG/2 ML VIAL IV PRN
== END | disposition home or self-care (01) ==
LOC: PMGWOUND 08:01
PROVIDERS: ATTEND Emergency Medicine Undersea and Hyperbaric Medicine
DX: T81.31XD Disruption of external operation (surgical) wound, not elsewhere classified, subsequent encounter (principal); I12.9 Hypertensive chronic kidney disease with stage 1 through stage 4 chronic kidney disease, or unspecified chronic kidney disease; E11.22 Type 2 diabetes mellitus with diabetic chronic kidney disease; N18.9 Chronic kidney disease, unspecified; G89.29 Other chronic pain; E03.9 Hypothyroidism, unspecified; H91.92 Unspecified hearing loss, left ear; E78.5 Hyperlipidemia, unspecified; M19.90 Unspecified osteoarthritis, unspecified site; Y83.8 Other surgical procedures as the cause of abnormal reaction of the patient, or of later complication, without mention of misadventure at the time of the procedure
CPT/HCPCS: 99214; G0463

== ENCOUNTER 2018-08-18 09:46 | Emergency (ER) | payer MEDICARE ==
[~2018-08-18] VITALS: Ht 172.7 cm; Wt 71.7 kg
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
[2018-08-18] MEDS ORDERED: ONDANSETRON PF 4 MG/2 ML VIAL. IV ONE (10:30)
[2018-08-18] MEDS ORDERED: PANTOPRAZOLE IV PUSH 40 MG VIAL. IVP ONE (10:30)
[2018-08-18] MEDS ORDERED: MORPHINE SULFATE 4 MG/ML VIAL. IV ONE (10:30)
[2018-08-18 10:39] LABS: BASO % 0 % (0-3); EOS # 0.1 x10^3/uL (0.0-0.7); EOS % 1 % (0-3); HEMATOCRIT 36.7 % (39.0-53.0); HEMOGLOBIN 12.1 g/dL (13.0-17.5); LYMPH % 11 % (24-48); MEAN CORPUSCULAR HEMOGLOBIN 31 pg (25-35); MEAN CORPUSCULAR HGB CONC 33 g/dL (31-37); MEAN CORPUSCULAR VOLUME 94 fL (79-100); MONO # 0.7 x10^3/uL (0.0-1.1); MONO % 8 % (0-9); NEUT % 80 % (31-73); PLATELET COUNT 406 x10^3/uL (140-400); RED BLOOD COUNT 3.89 x10^6/uL (4.30-5.70); RED CELL DISTRIBUTION WIDTH 14.7 % (11.5-14.5); WHITE BLOOD COUNT 8.8 x10^3/uL (4.0-11.0)
[2018-08-18 10:50] LABS: CALCIUM 8.4 mg/dL (8.5-10.1); CREATININE 1.4 mg/dL (0.7-1.3); GFR 60.6; POTASSIUM 4.3 mmol/L (3.5-5.1)
[2018-08-18 10:56] LABS: ALBUMIN/GLOBULIN RATIO 0.9 (1.0-1.7); TOTAL BILIRUBIN 0.2 mg/dL (0.2-1.0); TOTAL PROTEIN 6.4 g/dL (6.4-8.2)
[2018-08-18] MEDS ORDERED: IOHEXOL 300 MG/ML 100ML VIAL. IV ONE (11:00)
--- NOTE | 2018-08-18 11:37 | RAD ---
CT abdomen pelvis with contrast dated 08/18/2018. Comparison made to 09/01/2017. CLINICAL INDICATION: Diffuse upper abdominal pain and tenderness. Technique contiguous axial imaging the abdomen and pelvis performed after the administration of 75 cc Omnipaque 300. One or more of the following individualized dose reduction techniques were utilized for this examination: 1. Automated exposure control 2. Adjustment of the mA and/or kV according to patient size 3. Use of iterative reconstruction technique FINDINGS: Limited images of lung bases are clear. Heart size within normal limits. No pleural or pericardial effusion. There is some wall thickening of the gastric antrum/pylorus, similar to prior study. There are described proximal duodenal ulcer is less apparent on today's exam. No surrounding inflammatory change. No fluid collection. GI tract is otherwise normal in caliber. No apparent bowel wall thickening. The appendix is not clearly identified. No inflammatory changes in the right lower quadrant. No significant ascites or lymphadenopathy. There are scattered diverticula within the colon. Liver, spleen, pancreas, adrenal glands, gallbladder and kidneys are unremarkable. Mild dilation of the pancreatic duct, unchanged. No hydronephrosis. There is cortical scarring at the lower pole right kidney, unchanged. Images of pelvis show nondistended urinary bladder. Prostate gland mildly enlarged. No free fluid or lymphadenopathy. Bone windows show no acute findings. Multilevel spondylosis. IMPRESSION: 1. Wall thickening of the gastric antrum, pylorus and proximal duodenum, similar to prior study. The previously described proximal duodenal ulcer is less apparent on today's exam. 2. Mild dilation of the pancreatic duct, unchanged. 3. No new or acute findings. Electronically signed by: Asif Meza MD (08/18/2018 11:34 AM) [id number]
[2018-08-18] MEDS ORDERED: fentaNYL PF VIAL 100 MCG/2 ML VIAL IV ONE (11:45)
[2018-08-18 11:51] LABS: BILIRUBIN,URINE NEGATIVE (NEG); CLARITY,URINE CLEAR; COLOR,URINE YELLOW; NITRITE,URINE NEGATIVE (NEG); PH,URINE 7.5; PROTEIN,URINE 30 mg/dL (NEG-TRACE); UROBILINOGEN,URINE 0.2 mg/dL (0.2 mg/dL)
[2018-08-18] MEDS ORDERED: IV NORMAL SALINE 1000ML BAG 1,000 ML IV ONE (12:00)
[2018-08-18 12:13] LABS: BACTERIA,URINE FEW /HPF (0-FEW); SQUAMOUS EPITHELIAL CELL,UR FEW /LPF
[2018-08-18 13:15] VITALS: BP 159/82
== END 2018-08-18 13:50 | disposition home or self-care (01) ==
LOC: ER 09:46
DX: K26.9 Duodenal ulcer, unspecified as acute or chronic, without hemorrhage or perforation (principal); R10.84 Generalized abdominal pain; E03.9 Hypothyroidism, unspecified; I12.9 Hypertensive chronic kidney disease with stage 1 through stage 4 chronic kidney disease, or unspecified chronic kidney disease; N18.9 Chronic kidney disease, unspecified; G89.29 Other chronic pain; F10.20 Alcohol dependence, uncomplicated; Y90.9 Presence of alcohol in blood, level not specified; Z98.890 Other specified postprocedural states
CPT/HCPCS: 36415; 74177; 80053; 81001; 83690; 85025; 96374; 96375; 99285; C9113; J2270; J2405; J3010; J7030; Q9967; 96361

== ENCOUNTER 2018-09-25 18:04 | Emergency (ER) | payer MEDICARE ==
[~2018-09-25] VITALS: Ht 170.2 cm; Wt 71.7 kg
[2018-09-25 20:16] VITALS: BP 171/99
[2018-09-25 20:26] LABS: BASO % 0 % (0-3); EOS # 0.1 x10^3/uL (0.0-0.7); EOS % 3 % (0-3); HEMATOCRIT 36.4 % (39.0-53.0); HEMOGLOBIN 12.3 g/dL (13.0-17.5); LYMPH # 1.1 x10^3/uL (1.0-4.8); LYMPH % 24 % (24-48); MEAN CORPUSCULAR HEMOGLOBIN 32 pg (25-35); MEAN CORPUSCULAR HGB CONC 34 g/dL (31-37); MEAN CORPUSCULAR VOLUME 94 fL (79-100); MONO # 0.8 x10^3/uL (0.0-1.1); MONO % 18 % (0-9); NEUT # 2.6 x10^3uL (1.8-7.7); NEUT % 55 % (31-73); PLATELET COUNT 357 x10^3/uL (140-400); RED BLOOD COUNT 3.87 x10^6/uL (4.30-5.70); RED CELL DISTRIBUTION WIDTH 14.3 % (11.5-14.5); WHITE BLOOD COUNT 4.7 x10^3/uL (4.0-11.0)
[2018-09-25] MEDS ORDERED: hydrALAZINE 20 MG/ML VIAL. IVP ONE (20:30)
[2018-09-25 20:37] LABS: BILIRUBIN,URINE NEGATIVE (NEG); CLARITY,URINE CLEAR; COLOR,URINE YELLOW; NITRITE,URINE NEGATIVE (NEG); PH,URINE 6.5; PROTEIN,URINE NEGATIVE (NEG-TRACE); UROBILINOGEN,URINE 0.2 mg/dL (0.2 mg/dL)
[2018-09-25 20:40] LABS: CALCIUM 8.4 mg/dL (8.5-10.1); CREATININE 1.4 mg/dL (0.7-1.3); GFR 60.6; POTASSIUM 4.4 mmol/L (3.5-5.1)
[2018-09-25 20:45] LABS: BACTERIA,URINE 0 /HPF (0-FEW); RBC,URINE 0 /HPF (0-2); WBC,URINE OCC /HPF (0-4)
[2018-09-25 20:54] LABS: ALBUMIN 3.2 g/dL (3.4-5.0); ALBUMIN/GLOBULIN RATIO 0.9 (1.0-1.7); BARBITURATES NEG (NEG); BENZODIAZEPINES NEG (NEG); CANNABINOIDS NEG (NEG); COCAINE NEG (NEG); METHADONE NEG (NEG); OPIATES POS (NEG); PHENCYCLIDINE NEG (NEG); TOTAL BILIRUBIN 0.2 mg/dL (0.2-1.0); TOTAL PROTEIN 6.7 g/dL (6.4-8.2)
[2018-09-25 20:55] LABS: AMPHETAMINE/METHAMPHETAMINE NEG (NEG)
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
--- NOTE | 2018-09-26 09:35 | EKG ---
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
== END 2018-09-25 21:45 | disposition home or self-care (01) ==
LOC: ER 18:04
DX: I16.0 Hypertensive urgency (principal); I12.9 Hypertensive chronic kidney disease with stage 1 through stage 4 chronic kidney disease, or unspecified chronic kidney disease; N18.9 Chronic kidney disease, unspecified; R42 Dizziness and giddiness; R51 Headache; E03.9 Hypothyroidism, unspecified; K21.9 Gastro-esophageal reflux disease without esophagitis; G89.29 Other chronic pain; F10.20 Alcohol dependence, uncomplicated; Y90.0 Blood alcohol level of less than 20 mg/100 ml
CPT/HCPCS: 36415; 80053; 80307; 81001; 85025; 93005; 96374; 99285; G0480; J0360

== ENCOUNTER → 2018-12-16 | Outpatient (CLI) | payer MEDICARE ==
--- NOTE | 2018-12-16 16:39 | RAD ---
CT study of the right ankle without contrast Clinical indications: Evaluation of ankle arthrodesis site. TECHNIQUE: Noncontrast helical CT scanning of the right ankle was performed. Multiplanar 2-D reconstructions were generated. PQRS compliance Statement One or more of the following individualized dose reduction techniques were utilized for this study: 1. Automated exposure control 2. Adjustment of the mA and/or kV according to patient size 3. Use of iterative reconstruction technique COMPARISON: December 24, 2016. FINDINGS: Postoperative changes are now evident which have occurred since December 24, 2016 study. The distal fibula has been surgically resected. There is a long intramedullary ivana seen extending from the distal tibia through the talus into the calcaneus. There is lucency around this ivana including the tibia and talus and calcaneus and there is lucency around the distal screws. This could be secondary to loosening and/or infection. There is fragmentation of the talus. There is stapling of the calcaneal cuboid joint and the talus navicular joint. Multiple loose bodies are seen around the right ankle including the tibial talar joint compartment. There is a defect of the Achilles tendon 7 cm proximal to the attachment to the posterior aspect of the calcaneus. This defect measures 3.2 cm in length. There is circumferential soft tissue swelling involving the right ankle more focally prominent laterally. No liquefaction is seen here and therefore no definite abscess is seen radiographically. IMPRESSION: Arthrodesis of the right ankle and hindfoot. There is radiolucency around the intramedullary ivana and multiple distal screws which could be secondary to loosening and/or infection. Complete fragmentation of the talus. 2.2 cm defect of the Achilles tendon. Circumferential soft tissue swelling most prominent laterally around the peroneal tendons. Electronically signed by: Ricky Rea MD (12/16/2018 4:36 PM) [place] [id number]
== END | disposition home or self-care (01) ==
LOC: CT 07:43
PROVIDERS: ATTEND Orthopaedic Surgery Foot and Ankle Surgery
DX: T81.31XD Disruption of external operation (surgical) wound, not elsewhere classified, subsequent encounter (principal); M25.571 Pain in right ankle and joints of right foot; M21.961 Unspecified acquired deformity of right lower leg; Z98.1 Arthrodesis status; Z98.890 Other specified postprocedural states; Y83.8 Other surgical procedures as the cause of abnormal reaction of the patient, or of later complication, without mention of misadventure at the time of the procedure
CPT/HCPCS: 73700

== ENCOUNTER → 2019-02-13 | Outpatient (CLI) | payer MEDICARE ==
[~2019-02-13] MED LIST changes: +GADOTERATE 7.5 MMOL/15ML VIAL. IVP ONE
--- NOTE | 2019-02-13 14:34 | RAD ---
MRI of the lumbar spine without and with contrast 02/13/2019 CLINICAL HISTORY: Low back pain. History of previous lumbar spine surgery. TECHNIQUE: Unenhanced T1-weighted and T2-weighted sagittal and axial and inversion recovery sagittal images of the lumbar spine were obtained. After the intravenous administration of 14 cc of DOTAREM, enhanced T1-weighted sagittal and axial images of the lumbar spine were obtained. FINDINGS: Comparison study is dated 03/19/2018. Very mild S-shaped curvature of the thoracolumbar spine is seen. Degenerative signal changes are seen involving the L2-3, L3-4, L4-5 and L5-S1 discs. Degenerative signal changes are seen within the marrow surrounding these discs. Loss of height of the L2-3 and L3-4 discs is noted. The conus medullaris is normal morphology, position, and signal characteristics. The L1-2 disc space is within normal limits. At the L2-3 disc space there is a moderate generalized disc bulge. Degenerative changes are seen involving the facet joints bilaterally. There is moderate ligamentum flavum hypertrophy bilaterally. These findings when combined result in mild to moderate central spinal canal stenosis. No neural foraminal stenosis is seen. At the L3-4 disc space the patient is post bilateral hemilaminotomy. Epidural scarring surrounds the thecal sac. There is a mild generalized disc bulge. This is eccentric to the left. Degenerative changes are seen involving the facet joints bilaterally. These findings do not result in significant central spinal canal stenosis. Mild to moderate left greater than right neural foraminal stenosis is seen. The central spinal canal stenosis has resolved with the laminotomies since the previous study. At the L4-5 disc space the patient is post right hemilaminotomy. There is a mild generalized disc bulge. Degenerative changes are seen involving the facet joints bilaterally. These findings when combined result in mild to moderate central spinal canal stenosis. No neural foraminal stenosis is seen. At the L5-S1 disc space there is a mild generalized disc bulge. Degenerative changes are seen involving the facet joints bilaterally. There is mild to moderate ligamentum flavum hypertrophy bilaterally. These findings when combined do not result in significant central spinal canal or neural foraminal stenosis. IMPRESSION: 1. Post right hemilaminotomy at L4-5. Post bilateral hemilaminotomy at L3-4. The central spinal canal stenosis at L3-4 has resolved since the previous study. 2. The changes of degenerative disc disease are seen throughout the lumbar spine. These findings result in mild to moderate central spinal canal stenosis at L2-3 and L4-5. Mild to moderate left greater than right neural foraminal stenosis is seen at L3-4. Electronically signed by: Antonio Lopez MD (02/13/2019 2:30 PM) [facility]
== END | disposition home or self-care (01) ==
LOC: MRI 11:59
PROVIDERS: ATTEND Neurological Surgery
DX: M47.26 Other spondylosis with radiculopathy, lumbar region (principal); M51.16 Intervertebral disc disorders with radiculopathy, lumbar region; M48.061 Spinal stenosis, lumbar region without neurogenic claudication; M47.818 Spondylosis without myelopathy or radiculopathy, sacral and sacrococcygeal region; M89.38 Hypertrophy of bone, other site
CPT/HCPCS: 72158; A9575

== ENCOUNTER 2019-10-30 21:31 | Emergency (ER) | payer MEDICARE ==
[~2019-10-30] VITALS: Ht 172.7 cm; Wt 73.2 kg
[~2019-10-30 21:31] MED LIST changes: -GADOTERATE 7.5 MMOL/15ML VIAL. IVP ONE; +SUCR1TAB35 PO
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
[2019-10-30] MEDS ORDERED: IV NORMAL SALINE 1000ML BAG 1,000 ML IV ONE (21:45)
[2019-10-30] MEDS ORDERED: HYDROcodone/APAP 5/325MG 1 TAB TABLET PO ONE (22:00)
[2019-10-30 22:35] LABS: BASO % 0 % (0-3); EOS % 1 % (0-3); HEMATOCRIT 27.4 % (39.0-53.0); HEMOGLOBIN 9.4 g/dL (13.0-17.5); LYMPH # 1.5 x10^3/uL (1.0-4.8); LYMPH % 24 % (24-48); MEAN CORPUSCULAR HEMOGLOBIN 31 pg (25-35); MEAN CORPUSCULAR HGB CONC 35 g/dL (31-37); MEAN CORPUSCULAR VOLUME 91 fL (79-100); MONO # 0.9 x10^3/uL (0.0-1.1); MONO % 14 % (0-9); NEUT # 3.8 x10^3/uL (1.8-7.7); NEUT % 62 % (31-73); PLATELET COUNT 335 x10^3/uL (140-400); RED BLOOD COUNT 3.01 x10^6/uL (4.30-5.70); RED CELL DISTRIBUTION WIDTH 16.4 % (11.5-14.5); WHITE BLOOD COUNT 6.2 x10^3/uL (4.0-11.0)
[2019-10-30 22:44] LABS: CALCIUM 8.2 mg/dL (8.5-10.1); CREATININE 2.8 mg/dL (0.7-1.3); GFR 27.2; POTASSIUM 4.1 mmol/L (3.5-5.1); PROTHROMBIN TIME PATIENT 13.7 SEC (11.7-14.0)
[2019-10-30 22:50] LABS: ALBUMIN 2.8 g/dL (3.4-5.0); MAGNESIUM 1.7 mg/dL (1.8-2.4); TOTAL BILIRUBIN 0.2 mg/dL (0.2-1.0); TOTAL PROTEIN 5.7 g/dL (6.4-8.2)
[2019-10-31 00:14] LABS: BILIRUBIN,URINE NEGATIVE (NEG); CLARITY,URINE CLEAR; COLOR,URINE YELLOW; NITRITE,URINE NEGATIVE (NEG); PROTEIN,URINE NEGATIVE (NEG-TRACE); UROBILINOGEN,URINE 0.2 mg/dL (0.2 mg/dL)
[2019-10-31 00:22] LABS: BACTERIA,URINE 0 /HPF (0-FEW); RBC,URINE OCC /HPF (0-2); SQUAMOUS EPITHELIAL CELL,UR FEW /LPF
[2019-10-31 00:23] LABS: AMORPHOUS SEDIMENT,UR PRESENT /HPF; HYALINE CASTS, URINE FEW /HPF
[2019-10-31 01:58] VITALS: BP 134/83
--- NOTE | 2019-11-03 09:51 | EKG ---
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
== END 2019-10-31 02:06 | disposition home or self-care (01) ==
LOC: ER 21:31
DX: T67.8XXA Other effects of heat and light, initial encounter (principal); E86.0 Dehydration; R41.82 Altered mental status, unspecified; N18.9 Chronic kidney disease, unspecified; I12.9 Hypertensive chronic kidney disease with stage 1 through stage 4 chronic kidney disease, or unspecified chronic kidney disease; K21.9 Gastro-esophageal reflux disease without esophagitis; E03.9 Hypothyroidism, unspecified; G89.29 Other chronic pain; Z98.890 Other specified postprocedural states; F10.20 Alcohol dependence, uncomplicated; Y90.9 Presence of alcohol in blood, level not specified; X58.XXXA Exposure to other specified factors, initial encounter; Y93.89 Activity, other specified; Y92.89 Other specified places as the place of occurrence of the external cause; Y99.8 Other external cause status
CPT/HCPCS: 36415; 80053; 81001; 82553; 83735; 84484; 85025; 85610; 85730; 93005; 96360; 96361; 99284; J7030; P9612; 99285-25

== ENCOUNTER 2019-11-09 12:03 | Inpatient (IN) | payer MEDICARE ==
[~2019-11-09] VITALS: Ht 172.7 cm; Wt 70.7 kg
[2019-11-09] MEDS ORDERED: ONDANSETRON PF 4 MG/2 ML VIAL. ONE (12:30)
[2019-11-09 12:58] LABS: BASO % 0 % (0-3); EOS % 0 % (0-3); HEMATOCRIT 35.3 % (39.0-53.0); HEMOGLOBIN 11.5 g/dL (13.0-17.5); LYMPH # 1.4 x10^3/uL (1.0-4.8); LYMPH % 14 % (24-48); MEAN CORPUSCULAR HEMOGLOBIN 29 pg (25-35); MEAN CORPUSCULAR HGB CONC 33 g/dL (31-37); MEAN CORPUSCULAR VOLUME 90 fL (79-100); MONO % 11 % (0-9); NEUT # 6.9 x10^3/uL (1.8-7.7); NEUT % 74 % (31-73); PLATELET COUNT 346 x10^3/uL (140-400); RED BLOOD COUNT 3.92 x10^6/uL (4.30-5.70); RED CELL DISTRIBUTION WIDTH 15.4 % (11.5-14.5); WHITE BLOOD COUNT 9.4 x10^3/uL (4.0-11.0)
[2019-11-09] MEDS ORDERED: ONDANSETRON PF 4 MG/2 ML VIAL. IVP ONE (13:00)
[2019-11-09 13:06] LABS: CALCIUM 10.2 mg/dL (8.5-10.1); CREATININE 2.3 mg/dL (0.7-1.3); GFR 34.1; POTASSIUM 3.8 mmol/L (3.5-5.1)
[2019-11-09 13:10] LABS: PROTHROMBIN TIME PATIENT 12.9 SEC (11.7-14.0)
[2019-11-09 13:12] LABS: ALBUMIN/GLOBULIN RATIO 0.7 (1.0-1.7); MAGNESIUM 1.8 mg/dL (1.8-2.4); TOTAL BILIRUBIN 0.4 mg/dL (0.2-1.0); TOTAL PROTEIN 7.1 g/dL (6.4-8.2)
[2019-11-09] MEDS ORDERED: IV NORMAL SALINE 1000ML BAG 1,000 ML IV ONE (13:15)
[2019-11-09] MEDS ORDERED: FAMOTIDINE 20 MG/2 ML VIAL IVP ONE (13:15)
[2019-11-09] MEDS ORDERED: LIDO:MAALOX 1:1 20 ML SINGLE DOSE. SWSW ONE (13:15)
--- NOTE | 2019-11-09 13:18 | RAD ---
CHEST AP ONLY History: Reason: chest pain / Spl. Instructions: / History: Comparison: March 10, 2019 Findings: No consolidation or pleural effusion. Normal heart size. No pneumothorax. Postop changes cervical spine. Impression: 1. No acute cardiopulmonary process. Electronically signed by: Fransisco Scanlon DO (11/09/2019 1:15 PM) [id number]
[2019-11-09 15:07] LABS: BILIRUBIN,URINE NEGATIVE (NEG); CLARITY,URINE CLEAR; COLOR,URINE YELLOW; NITRITE,URINE NEGATIVE (NEG); PH,URINE 7.5 (<5.0-8.0); PROTEIN,URINE 100 mg/dL (NEG-TRACE); UROBILINOGEN,URINE 0.2 mg/dL (0.2 mg/dL)
[2019-11-09] MEDS: NITROGLYCERIN SUBLINGUAL 0.4 MG BOTTLE OF 25. SL PRN ×2 (15:13→15:21)
[2019-11-09] MEDS ORDERED: ASPIRIN 325 MG TABLET PO ONE (15:15)
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
[2019-11-09 15:23] LABS: BACTERIA,URINE MANY /HPF (0-FEW); RBC,URINE 0 /HPF (0-2); SQUAMOUS EPITHELIAL CELL,UR FEW /LPF; WBC,URINE >40 /HPF (0-4)
--- NOTE | 2019-11-09 15:24 | EKG ---
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
[2019-11-09] MEDS ORDERED: cefTRIAXone IV Push 1 GM VIAL. IVP ONE (15:45)
--- NOTE | 2019-11-09 18:30 | NUR ---
Patient arrived to unit at approx 1830 accompanied by ED nurse. Patient states that he had a COVID test on November 01 that was negative, pt has results on phone if needed. Patient states that he is currently in 8/10 pain located in ABD, throbbing. Pt resting on room air. VS stable, assessment complete. Call light in reach. bed in low locked position, bed alarm on. Reminded pt to call before ambulating. Will continue to monitor.
[2019-11-09] MEDS ORDERED: MELO7.5T29 PO (19:03)
[2019-11-09] MEDS ORDERED: PANT40TA6 PO (19:03)
[2019-11-09] MEDS ORDERED: AMIT25TA PO (19:03)
[2019-11-09] MEDS ORDERED: SUCR1TAB PO (19:03)
[2019-11-09] MEDS ORDERED: LIDO1ADH63 TD (19:03)
[2019-11-09] MEDS ORDERED: GABA-689 PO (19:03)
[2019-11-09] MEDS ORDERED: ATOR40TA59 PO (19:03)
[2019-11-09] MEDS ORDERED: TRIA15CR3 TD (19:03)
[2019-11-09 19:19] VITALS: BP 149/93
[2019-11-09] MEDS ORDERED: ONDANSETRON PF 4 MG/2 ML VIAL. IVP PRN (19:30)
[2019-11-09] MEDS: IV NORMAL SALINE 1000ML BAG 1,000 ML IV SCH (19:53)
[2019-11-09] MEDS: fentaNYL PF VIAL 100 MCG/2 ML VIAL IVP PRN (19:54)
[2019-11-09] MEDS: PATCH REMOVAL. MC SCH (21:00)
[2019-11-09] MEDS ORDERED: CONTRAST GIVEN. MC PRN (21:00)
[2019-11-09] MEDS ORDERED: IOHEXOL 240 MG/ML 50ML VIAL. PO ONE (21:30)
[2019-11-09] MEDS: GABAPENTIN 400 MG CAPSULE. PO SCH (21:33)
[2019-11-09] MEDS: ATORVASTATIN CALCIUM 40 MG TABLET. PO SCH (21:33)
[2019-11-09] MEDS: SUCRALFATE 1 GM TABLET. PO SCH (21:33)
[2019-11-09] MEDS: HYDROcodone/APAP 10/325 1 TAB TABLET PO SCH (21:33)
--- NOTE | 2019-11-09 21:50 | RAD ---
CT scan abdomen and pelvis with oral contrast only 11/09/2019 CLINICAL HISTORY: Abdominal pain. TECHNIQUE: After the oral administration contrast only, contiguous, 5 mm axial sections were obtained through the abdomen and pelvis. One or more of the following individualized dose reduction techniques were utilized for this study: 1. Automated exposure control. 2. Adjustment of the mA and/or kV according to patient size. 3. Use of iterative reconstruction technique. FINDINGS: Comparison study is dated 08/18/2018. Images through the lung bases demonstrate minimal dependent subsegmental atelectasis bilaterally. The liver, spleen, pancreas, adrenal glands and kidneys are within normal limits. Atherosclerotic calcification abdominal aorta is seen. The abdominal aorta tapers normally. The gallbladder is contracted. No free fluid or free air is seen within the abdomen. There is no evidence of bowel obstruction. Wall thickening of the gastric antrum and proximal duodenum is again seen. This appears improved since the previous study. Images through the pelvis demonstrate the urinary bladder distended with urine. Calcifications are seen within the pelvis consistent with phleboliths. Moderate amount stool seen within the rectum and sigmoid colon. No free fluid is seen. Degenerative changes are seen involving the lower thoracic and throughout the lumbar spine along with both hips. Mild S-shaped curvature of the thoracolumbar spine is seen. IMPRESSION: Diffuse wall thickening of the antrum of the stomach and proximal duodenum is again seen which appears improved since the previous study. No acute abnormality is visualized. Electronically signed by: Antonio Lopez MD (11/09/2019 9:46 PM) [id number]
[2019-11-09] MEDS ORDERED: ZOLPIDEM 5 MG TABLET. PO PRN (22:15)
[2019-11-09 22:29] VITALS: BP 163/97
[2019-11-10] VITALS (7 sets, daily range): BP systolic 142–180; BP diastolic 55–104
[2019-11-10] MEDS: fentaNYL PF VIAL 100 MCG/2 ML VIAL IVP PRN ×5 (03:34→22:36)
[2019-11-10] MEDS: HYDROcodone/APAP 10/325 1 TAB TABLET PO SCH ×5 (06:28→22:35)
[2019-11-10] MEDS: LEVOTHYROXINE 25 MCG TABLET. PO SCH (06:28)
--- NOTE | 2019-11-10 07:12 | EKG ---
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
[2019-11-10 07:21] LABS: GFR 40.1; POTASSIUM 4.3 mmol/L (3.5-5.1)
[2019-11-10 07:27] LABS: CHOLESTEROL/HDL RATIO 2.6
[2019-11-10 07:37] LABS: BASO % 0 % (0-3); EOS # 0.1 x10^3/uL (0.0-0.7); EOS % 1 % (0-3); HEMATOCRIT 33.1 % (39.0-53.0); HEMOGLOBIN 10.8 g/dL (13.0-17.5); LYMPH # 1.6 x10^3/uL (1.0-4.8); LYMPH % 18 % (24-48); MEAN CORPUSCULAR HEMOGLOBIN 30 pg (25-35); MEAN CORPUSCULAR HGB CONC 33 g/dL (31-37); MEAN CORPUSCULAR VOLUME 91 fL (79-100); MONO # 1.2 x10^3/uL (0.0-1.1); MONO % 13 % (0-9); NEUT % 67 % (31-73); PLATELET COUNT 295 x10^3/uL (140-400); RED BLOOD COUNT 3.63 x10^6/uL (4.30-5.70); RED CELL DISTRIBUTION WIDTH 15.7 % (11.5-14.5); WHITE BLOOD COUNT 8.9 x10^3/uL (4.0-11.0)
--- NOTE | 2019-11-10 08:15 | PDOC ---
Provider Note Provider Note #[id number] H&P dictated. Justicifation of Admission Dx: Justifications for Admission: Justification of Admission Dx: Yes Sepsis: Dehydration MATT OSORIO MD Nov 10, 2019 08:15
[2019-11-10] MEDS: PANTOPRAZOLE 40 MG TABLET.DR. PO SCH (08:43)
[2019-11-10] MEDS: SUCRALFATE 1 GM TABLET. PO SCH ×2 (08:43→20:31)
[2019-11-10] MEDS: AMITRIPTYLINE HCL 25 MG TABLET. PO SCH (08:43)
[2019-11-10] MEDS: GABAPENTIN 400 MG CAPSULE. PO SCH ×3 (08:43→20:31)
[2019-11-10] MEDS: amLODIPine BESYLATE 5 MG TABLET PO SCH (08:44)
[2019-11-10] MEDS: LIDOCAINE (700MG/PATCH) PATCH. TD SCH (09:00)
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
--- NOTE | 2019-11-10 09:30 | EKG ---
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
--- NOTE | 2019-11-10 09:35 | EKG ---
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
--- NOTE | 2019-11-10 09:38 | NUR ---
SS following for discharge planning. SS reviewed pt chart and discussed with pt RN. Pt is from home with spouse and is currently on room air. Pt on IV Rocephin for UTI. SS will continue to follow for discharge planning.
[2019-11-10] MEDS: IV NORMAL SALINE 1000ML BAG 1,000 ML IV SCH (10:32)
--- NOTE | 2019-11-10 11:15 | PDOC2 ---
PAT BRUNNER LABEL SEWER 11/10/19 1115: CARDIAC CONSULT DATE OF CONSULT Date of Consult DATE: 11/10/19 TIME: 10:58 REASON FOR CONSULT Reason for Consult: Chest pain, elevated troponin REFERRING PHYSICIAN Referring Physician: Teresa SOURCE Source: Chart review, Patient HISTORY OF PRESENT ILLNESS HISTORY OF PRESENT ILLNESS This is a pleasant 69 yo male admitted for complains of abdominal pain. Reports that this started last week and was having bouts of nausea. His pain is middle just above the umbilicus and it was sharp. This is tender with palpation. This then went up mid chest and throbbing but denies any jaw or arm discomfort. No SOA, palpitations. He took baking soda, drank more water and took some antacids but it continues to bother him. Denies any hx of CAD, VTE and no recent falls or any injury. He does have hx of PUD from 2 yrs ago and he has been having heartburn about 2-3 days a week and skips breakfast and drinks 3 cans of beer a day. He only eats twice a day. He last took his BP med due to nausea and abdominal pain. Reports. 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 His last stress test was 2015. He does not take aleve or ibuprofen but does take mobix. PAST MEDICAL HISTORY Past Medical History Cardiovascular: HTN, HLP GI: GERD, Peptic Ulcer disease, small HH, GI bleed Heme/Onc: Anemia NOS with multiple blood transfusions Musculoskeletal: Osteoarthritis, Other (DDD) Renal/: Chronic renal insuff Endocrine: Diabetes?, Hypothyroidism PAST SURGICAL HISTORY Past Surgical History Hernia Repair, Other (multiple back surgery for HNP) FAMILY HISTORY Family History noncontributory to CV SOCIAL HISTORY Social History Smoke: No ALCOHOL: other (3 beers per day) Drugs: None Lives: with Family CURRENT MEDICATIONS CURRENT MEDICATIONS Current Medications Medications (Trade) Dose Ordered Sig/Louise Route PRN Reason Start Time Stop Time Status Last Admin Dose Admin Ondansetron HCl (Zofran) 4 mg 1X ONCE IVP 11/09/19 13:00 11/09/19 13:01 DC 11/09/19 13:00 Famotidine (Pepcid Vial) 20 mg 1X ONCE IVP 11/09/19 13:15 11/09/19 13:21 DC 11/09/19 13:32 Sodium Chloride 1,000 ml @ 1,000 mls/hr 1X ONCE IV 11/09/19 13:15 11/09/19 14:14 DC 11/09/19 13:15 Multi-Ingredient Mouthwash/Gargle (Gi Cocktail) 20 ml 1X ONCE SWSW 11/09/19 13:15 11/09/19 13:21 DC 11/09/19 13:35 Aspirin (Janes Aspirin) 325 mg 1X ONCE PO 11/09/19 15:15 11/09/19 15:16 DC 11/09/19 15:12 Nitroglycerin (Nitrostat) 0.4 mg PRN Q5MIN PRN SL CHEST PAIN 11/09/19 15:15 11/09/19 15:21 Ceftriaxone Sodium (Rocephin) 1 gm 1X ONCE IVP 11/09/19 15:45 11/09/19 15:46 DC 11/09/19 16:04 Sodium Chloride 1,000 ml @ 75 mls/hr [id number] IV 11/09/19 19:15 11/10/19 10:32 Amitriptyline HCl (Elavil) 25 mg DAILY PO 11/10/19 09:00 11/10/19 08:43 Amlodipine Besylate (Norvasc) 5 mg DAILY PO 11/10/19 09:00 11/10/19 08:44 Atorvastatin Calcium (Lipitor) 40 mg QHS PO 11/09/19 21:00 11/09/19 21:33 Gabapentin (Neurontin) 400 mg TID PO 11/09/19 21:00 11/10/19 08:43 Acetaminophen/ Hydrocodone Bitart (Lortab 10/325) 1 tab Q4HRS W/A PO 11/09/19 22:00 11/10/19 10:41 Levothyroxine Sodium (Synthroid) 25 mcg DAILY07 PO 11/10/19 07:00 11/10/19 06:28 Pantoprazole Sodium (Protonix) 40 mg DAILYAC PO 11/10/19 07:30 11/10/19 08:43 Sucralfate (Carafate) 1 gm BID PO 11/09/19 21:00 11/10/19 08:43 Fentanyl Citrate (Fentanyl 2ml Vial) 12.5 mcg PRN Q3HRS PRN IVP PAIN 11/09/19 19:30 11/10/19 08:21 DC 11/10/19 03:34 Iohexol (Omnipaque 240 Mg/ml) 30 ml 1X ONCE PO 11/09/19 21:30 11/09/19 21:31 DC 11/09/19 21:30 Zolpidem Tartrate (Ambien) 5 mg PRN QHS PRN PO INSOMNIA 11/09/19 22:15 11/09/19 22:28 Fentanyl Citrate (Fentanyl 2ml Vial) 25 mcg PRN Q3HRS PRN IVP PAIN 11/10/19 08:15 11/10/19 10:32 ALLERGIES ALLERGIES: Coded Allergies: No Known Drug Allergies (Unverified , 03/11/19) ROS Review of System 14 point ROS evaluated with pertinent positives noted per HPI PHYSICAL EXAM General: Alert, Oriented X3, Cooperative, No acute distress HEENT: Atraumatic, Mucous membr. moist/pink Lungs: Clear to auscultation, Normal air movement Heart: Regular rate (SR no ectopies), Normal S1, Normal S2, No murmurs Abdomen: Soft, Other (tendereness to midabdomen above the umbilicus) Extremities: No cyanosis, No edema Skin: No breakdown, No significant lesion Neuro: Normal speech, Sensation intact Psych/Mental Status: Mental status NL, Mood NL MUSCULOSKELETAL: Osteoarthritic changes both hands VITALS/I&O VITALS/I&O: Vital Signs Date Time Temp Pulse Resp B/P (MAP) Pulse Ox O2 Delivery O2 Flow Rate FiO2 11/10/19 10:41 98.4 78 16 155/97 (116) 99 Room Air 98.4 I & O 11/09/19 11/09/19 11/10/19 15:00 23:00 07:00 Intake Total 1000 ml 0 ml Output Total 150 ml Balance 1000 ml -150 ml 0 ml LABS Lab: Laboratory Tests Test 11/09/19 12:25 11/09/19 14:20 11/09/19 18:20 11/10/19 00:15 White Blood Count 9.4 x10^3/uL (4.0-11.0) Red Blood Count 3.92 x10^6/uL (4.30-5.70) L Hemoglobin 11.5 g/dL (13.0-17.5) L Hematocrit 35.3 % (39.0-53.0) L Mean Corpuscular Volume 90 fL (79-100) Mean Corpuscular Hemoglobin 29 pg (25-35) Mean Corpuscular Hemoglobin Concent 33 g/dL (31-37) Red Cell Distribution Width 15.4 % (11.5-14.5) H Platelet Count 346 x10^3/uL (140-400) Neutrophils (%) (Auto) 74 % (31-73) H Lymphocytes (%) (Auto) 14 % (24-48) L Monocytes (%) (Auto) 11 % (0-9) H Eosinophils (%) (Auto) 0 % (0-3) Basophils (%) (Auto) 0 % (0-3) Neutrophils # (Auto) 6.9 x10^3/uL (1.8-7.7) Lymphocytes # (Auto) 1.4 x10^3/uL (1.0-4.8) Monocytes # (Auto) 1.0 x10^3/uL (0.0-1.1) Eosinophils # (Auto) 0.0 x10^3/uL (0.0-0.7) Basophils # (Auto) 0.0 x10^3/uL (0.0-0.2) Prothrombin Time 12.9 SEC (11.7-14.0) Prothrombin Time INR 1.0 (0.8-1.1) Activated Partial Thromboplast Time 32 SEC (24-38) Sodium Level 135 mmol/L (136-145) L Potassium Level 3.8 mmol/L (3.5-5.1) Chloride Level 97 mmol/L (98-107) L Carbon Dioxide Level 30 mmol/L (21-32) Anion Gap 8 (6-14) Blood Urea Nitrogen 27 mg/dL (8-26) H Creatinine 2.3 mg/dL (0.7-1.3) H Estimated GFR (Cockcroft-Gault) 34.1 BUN/Creatinine Ratio 12 (6-20) Glucose Level 110 mg/dL (70-99) H Calcium Level 10.2 mg/dL (8.5-10.1) H Magnesium Level 1.8 mg/dL (1.8-2.4) Total Bilirubin 0.4 mg/dL (0.2-1.0) Aspartate Amino Transferase (AST) 24 U/L (15-37) Alanine Aminotransferase (ALT) 22 U/L (16-63) Alkaline Phosphatase 71 U/L (46-116) Creatine Kinase 100 U/L (39-308) Creatine Kinase MB (Mass) 3.6 ng/mL (0.0-3.6) Creatine Kinase MB Relative Index 3.6 % (0-4) Troponin I Quantitative 0.071 ng/mL (0.000-0.055) 0.069 ng/mL (0.000-0.055) 0.067 ng/mL (0.000-0.055) CF-Djq-S-Type Natriuretic Peptide 3213 pg/mL (0-124) H Total Protein 7.1 g/dL (6.4-8.2) Albumin 3.0 g/dL (3.4-5.0) L Albumin/Globulin Ratio 0.7 (1.0-1.7) L Lipase 170 U/L (73-393) Urine Collection Type Void Urine Color Yellow Urine Clarity Clear Urine pH 7.5 (<5.0-8.0) Urine Specific [place] 1.020 (1.000-1.030) Urine Protein 100 mg/dL (NEG-TRACE) Urine Glucose (UA) Negative mg/dL (NEG) Urine Ketones (Stick) Trace mg/dL (NEG) Urine Blood Negative (NEG) Urine Nitrite Negative (NEG) Urine Bilirubin Negative (NEG) Urine Urobilinogen Dipstick 0.2 mg/dL (0.2 mg/dL) Urine Leukocyte Esterase Small (NEG) Urine RBC 0 /HPF (0-2) Urine WBC >40 /HPF (0-4) Urine Squamous Epithelial Cells Few /LPF Urine Bacteria Many /HPF (0-FEW) Thyroid Stimulating Hormone (TSH) 0.633 uIU/mL (0.358-3.74) Test 11/10/19 06:35 11/10/19 06:55 White Blood Count 8.9 x10^3/uL (4.0-11.0) Red Blood Count 3.63 x10^6/uL (4.30-5.70) L Hemoglobin 10.8 g/dL (13.0-17.5) L Hematocrit 33.1 % (39.0-53.0) L Mean Corpuscular Volume 91 fL (79-100) Mean Corpuscular Hemoglobin 30 pg (25-35) Mean Corpuscular Hemoglobin Concent 33 g/dL (31-37) Red Cell Distribution Width 15.7 % (11.5-14.5) H Platelet Count 295 x10^3/uL (140-400) Neutrophils (%) (Auto) 67 % (31-73) Lymphocytes (%) (Auto) 18 % (24-48) L Monocytes (%) (Auto) 13 % (0-9) H Eosinophils (%) (Auto) 1 % (0-3) Basophils (%) (Auto) 0 % (0-3) Neutrophils # (Auto) 6.0 x10^3/uL (1.8-7.7) Lymphocytes # (Auto) 1.6 x10^3/uL (1.0-4.8) Monocytes # (Auto) 1.2 x10^3/uL (0.0-1.1) H Eosinophils # (Auto) 0.1 x10^3/uL (0.0-0.7) Basophils # (Auto) 0.0 x10^3/uL (0.0-0.2) Sodium Level 137 mmol/L (136-145) Potassium Level 4.3 mmol/L (3.5-5.1) Chloride Level 102 mmol/L (98-107) Carbon Dioxide Level 27 mmol/L (21-32) Anion Gap 8 (6-14) Blood Urea Nitrogen 24 mg/dL (8-26) Creatinine 2.0 mg/dL (0.7-1.3) H Estimated GFR (Cockcroft-Gault) 40.1 Glucose Level 97 mg/dL (70-99) Calcium Level 9.0 mg/dL (8.5-10.1) Triglycerides Level 132 mg/dL (0-150) Cholesterol Level 134 mg/dL (0-200) LDL Cholesterol, Calculated 56 mg/dL (0-100) VLDL Cholesterol, Calculated 26 mg/dL (0-40) Non-HDL Cholesterol Calculated 82 mg/dL (0-129) HDL Cholesterol 52 mg/dL (40-60) Cholesterol/HDL Ratio 2.6 Troponin I Quantitative 0.060 ng/mL (0.000-0.055) Laboratory Tests 8/3/20 12:25 11/10/19 06:35 Laboratory Tests 11/09/19 12:25 11/10/19 06:35 ECHOCARDIOGRAM ECHOCARDIOGRAM <Conclusion> The left ventricular systolic function is normal. The ejection fraction is 55-60%. There is normal LV segmental wall motion. Transmitral Doppler flow pattern is Grade I-abnormal relaxation pattern. Trace mitral regurgitation. Trace tricuspid regurgitation with an estimated PAP of 30 mmHg. There is no evidence of significant pericardial effusion. DATE: 03/10/19 1509 STRESS TEST STRESS TEST Conclusion 1. Regadenoson cardioisotope stress test did not show any evidence of ischemia or infarct. 2. Normal left ventricular systolic function with ejection fraction calculated at 66%. 3. Low risk for cardiac events. DATE: 01/30/16 1426 ASSESSMENT/PLAN ASSESSMENT/PLAN 1. Atypical chest pain: more from abdominal pain. Suspect GI, abnormal CT, GI following 2. Mild tropoinin elevation: Peaked at 0.089, likely demand mediated. No acute EKG changes. Suspect induced by HTN urgency 3. HTN urgency: has not taken BP meds since last wk due to GI symptoms 4. ZACK on CKD: possibly stage 3 5. GERD exacerbation with HH 6. HLP: on goal 7. Hx of PUD and GI bleed with multiple transfusion 8, Hypothyroidism: on replacement. TSH on goal Recommendations 1. TTE pending. If unremarkable then will consider for outpt MPI 2. Restart BP meds. Supportive care. ALYSE RAWLS MD 11/10/19 1728: CARDIAC CONSULT ASSESSMENT/PLAN ASSESSMENT/PLAN Pt. seen and examined. Agree with above DIALER Note. Echo wnl. Plan for outpt MPI Supportive care. Thanks PAT BRUNNER APRN Nov 10, 2019 11:15 ALYSE RAWLS MD Nov 10, 2019 17:28
[2019-11-10] MEDS: ASPIRIN ENTERIC COATED 81 MG TABLET.DR. PO SCH (12:45)
[2019-11-10] MEDS: cefTRIAXone IV Push 1 GM VIAL. IVP SCH (14:33)
[2019-11-10] MEDS: ATORVASTATIN CALCIUM 40 MG TABLET. PO SCH (20:31)
[2019-11-10] MEDS: PATCH REMOVAL. MC SCH (21:00)
[2019-11-11] MEDS: IV NORMAL SALINE 1000ML BAG 1,000 ML IV SCH ×2 (02:11→11:15)
[2019-11-11 02:18] VITALS: BP 127/68
[2019-11-11] MEDS: fentaNYL PF VIAL 100 MCG/2 ML VIAL IVP PRN ×4 (02:19→14:41)
[2019-11-11] MEDS: LEVOTHYROXINE 25 MCG TABLET. PO SCH (06:03)
[2019-11-11] MEDS: HYDROcodone/APAP 10/325 1 TAB TABLET PO SCH ×3 (06:03→14:41)
[2019-11-11 07:00] VITALS: BP 143/83
[2019-11-11 07:38] LABS: CALCIUM 7.9 mg/dL (8.5-10.1); CREATININE 1.9 mg/dL (0.7-1.3); GFR 42.5; POTASSIUM 3.5 mmol/L (3.5-5.1)
[2019-11-11] MEDS ORDERED: ASPI-886 PO (08:20)
[2019-11-11] MEDS ORDERED: CEPH-264 PO (08:21)
--- NOTE | 2019-11-11 08:25 | PDOC ---
PROGRESS NOTES Date of Service: DATE: 11/11/19 TIME: 08:22 Subjective Subjective feels good ,want to go home Objective Objective Vital Signs Date Time Temp Pulse Resp B/P (MAP) Pulse Ox O2 Delivery O2 Flow Rate FiO2 11/11/19 07:00 97.5 72 16 143/83 (103) 100 Room Air 97.5 Intake and Output 11/11/19 07:00 Intake Total 600 ml Output Total 650 ml Balance -50 ml Intake Oral 600 ml Output Urine Total 650 ml # Voids 1 Physical Exam Abdomen: Soft, Other (tendereness to midabdomen above the umbilicus) Heart: Regular rate (SR no ectopies), Normal S1, Normal S2, No murmurs Extremities: No cyanosis, No edema General: Alert, Oriented X3, Cooperative, No acute distress HEENT: Atraumatic, Mucous membr. moist/pink Lungs: Clear to auscultation, Normal air movement MUSCULOSKELETAL: Osteoarthritic changes both hands Neuro: Normal speech, Sensation intact Psych/Mental Status: Mental status NL, Mood NL Skin: No breakdown, No significant lesion Diagnosis Problem List Problems Medical Problems: (1) Chest pain Status: Acute (2) Dehydration Status: Acute (3) Elevated troponin Status: Acute (4) Nausea & vomiting Status: Acute (5) UTI (urinary tract infection) Status: Acute Assessment Assessment Problems Medical Problems: (1) Chest pain Status: Acute (2) Dehydration Status: Acute (3) Elevated troponin Status: Acute (4) Nausea & vomiting Status: Acute (5) UTI (urinary tract infection) Status: Acute FINAL IMPRESSION: 1. Epigastric pain, slight thickening of the stomach and duodenum. 2. Slight elevation in troponin, possible non-ST elevation myocardial infarction. 3. Chronic kidney disease, creatinine 2.3. 4. Urinary tract infection, possibly secondary to benign prostatic hypertrophy. 5. Hypertension. 6. Chronic back surgeries as mentioned above. PLAN: cr 1.9 improved, chronic and stable troponin just borderline echo good lvf stress test out pt. urine c/s pending d/c home on keflex. no gi work up planned. At this time, the patient was admitted to the hospital. As mentioned, had an EGD 6 months ago, biopsy of the stomach and duodenum was negative at that point; and we will also have Cardiology see, echocardiogram, probably a stress test, and also IV hydration to see how the kidney function improves, it is coming from 2.3 to 2.0 already with fluids, and also IV Rocephin for urinary tract infection and waiting for the urine cultures. Plan Plan of Care Problems Medical Problems: (1) Chest pain Status: Acute (2) Dehydration Status: Acute (3) Elevated troponin Status: Acute (4) Nausea & vomiting Status: Acute (5) UTI (urinary tract infection) Status: Acute Comment Review of Relevant I have reviewed the following items sharyn (where applicable) has been applied. Labs Laboratory Tests Test 11/11/19 07:00 Sodium Level 138 mmol/L (136-145) Potassium Level 3.5 mmol/L (3.5-5.1) Chloride Level 104 mmol/L (98-107) Carbon Dioxide Level 27 mmol/L (21-32) Anion Gap 7 (6-14) Blood Urea Nitrogen 22 mg/dL (8-26) Creatinine 1.9 mg/dL (0.7-1.3) Estimated GFR (Cockcroft-Gault) 42.5 Glucose Level 86 mg/dL (70-99) Calcium Level 7.9 mg/dL (8.5-10.1) Medications Current Medications Amitriptyline HCl (Elavil) 25 mg DAILY PO Last administered on 11/10/19at 08:43; Start 11/10/19 at 09:00 Amlodipine Besylate (Norvasc) 5 mg DAILY PO Last administered on 11/10/19at 08:44; Start 11/10/19 at 09:00 Aspirin (Ecotrin) 81 mg DAILYWBKFT PO Last administered on 11/10/19at 12:45; Start 11/10/19 at 12:00 Ceftriaxone Sodium (Rocephin) 1 gm Q24H IVP Last administered on 11/10/19at 14:33; Start 11/10/19 at 15:00 Lidocaine (Lidoderm) 1 patch DAILY TD ; Start 11/10/19 at 09:00 Vitals/I & O Vital Sign - Last 24 Hours 11/10/19 11/10/19 11/10/19 11/10/19 08:44 08:44 10:41 14:00 Temp 98.4 97.6 98.4 97.6 Pulse 85 78 87 Resp 16 15 B/P (MAP) 177/97 (123) 155/97 (116) 142/55 (84) Pulse Ox 99 98 O2 Delivery Room Air Room Air 11/10/19 11/10/19 11/10/19 11/10/19 19:02 19:29 20:00 20:00 Temp 98.3 98.3 Pulse 82 Resp 16 16 16 B/P (MAP) 152/88 (109) Pulse Ox 100 100 100 O2 Delivery Room Air Room Air Room Air Room Air 11/10/19 11/10/19 11/10/19 11/10/19 22:35 22:36 22:42 23:06 Temp 98.0 98.0 Pulse 78 Resp 16 18 16 16 B/P (MAP) 146/88 (107) Pulse Ox 100 100 100 100 O2 Delivery Room Air Room Air Room Air Room Air 11/10/19 11/11/19 11/11/19 11/11/19 23:35 02:18 02:19 02:49 Temp 97.9 97.9 Pulse 85 Resp 16 16 16 16 B/P (MAP) 127/68 (87) Pulse Ox 100 100 100 100 O2 Delivery Room Air Room Air Room Air Room Air 11/11/19 11/11/19 11/11/19 06:03 06:03 07:00 Temp 97.5 97.5 Pulse 72 Resp 16 16 16 B/P (MAP) 143/83 (103) Pulse Ox 100 100 100 O2 Delivery Room Air Room Air Room Air Intake and Output 11/10/19 11/10/19 11/11/19 15:00 23:00 07:00 Intake Total 200 ml 400 ml 0 ml Output Total 100 ml 200 ml 350 ml Balance 100 ml 200 ml -350 ml Justicifation of Admission Dx: Justifications for Admission: Justification of Admission Dx: Yes Sepsis: Dehydration Nutrition Consultation Dietary Evaluation: Recommendations by RD: Dietary education by RD, Increase Calorie Intake, Protein supplementation Comments: REC regular diet, liberalized diet to promote good PO intake and allow more food preferences (pt requested salt and pepper) REC chocolate glucerna w/lunch and dinner pt pt request Expected Outcomes/Goals: PO intake to meet >75% est needs Interpretation of weight loss: >1-2% in 1 week Malnutrition Findings: Food and Nutrition Intake (Sev: <50% est energy req 5days Weight Status: Appropriate MATT OSORIO MD Nov 11, 2019 08:24
--- NOTE | 2019-11-11 08:29 | PDOC ---
Provider Note Provider Note Discharge summary dictated.#[id number]. Justicifation of Admission Dx: Justifications for Admission: Justification of Admission Dx: Yes Sepsis: Dehydration MATT OSORIO MD Nov 11, 2019 08:29
--- NOTE | 2019-11-11 08:42 | DS ---
DATE OF DISCHARGE: 11/11/2019 REASON FOR ADMISSION TO THE HOSPITAL: 1. Epigastric pain. 2. Borderline elevation in troponin. 3. Acute on chronic renal insufficiency. 4. Urinary tract infection secondary to BPH. CONSULTATIONS: 1. Dr. Burnett, GI. 2. Dr. Negro, Cardiology. PROCEDURES DONE: Echocardiogram and CT scan of the abdomen and pelvis. COMPLICATIONS NOTED: None. HOSPITAL COURSE: The patient is a 69-year-old male. Patient was having epigastric pain, got progressively worse, came to the Emergency Room. His troponin was borderline at 0.067. patient was seen by Cardiology. Echocardiogram done, good left ventricular function and it was felt that the patient needs to do stress test as outpatient. The patient's creatinine was 2.3; BUN 27; with fluids, it came down to 1.9. He has chronic kidney disease and seen kidney specialist in the past. CBC was normal. The patient had a CT scan of the abdomen and pelvis, which shows diffuse wall thickening of the antrum of the stomach and proximal duodenum, which is improved from previous study 6 months ago. The patient had a biopsy and EGD done 6 months ago and was negative for cancer. The patient was seen by GI and did not recommend any further workup at this point and the patient is feeling better. The patient was discharged. Urine culture is still pending. The patient was given Rocephin, discharged on Keflex. FINAL IMPRESSION: 1. Epigastric pain secondary to gastritis. 2. Urinary tract infection secondary to BPH. Cultures pending. 3. Borderline elevated troponin at 0.0611 and recommended outpatient stress test. 4. Hypertension. 5. Hyperlipidemia. 6. Hypothyroidism. 7. Multiple back surgeries. 8. Chronic kidney disease stage 3, stable. DISPOSITION: Home. Scheduled for outpatient stress test. Resume Carafate and Protonix for the stomach and Keflex for UTI 500 twice a day. We will follow up in the office with urine cultures. MATT OSORIO MD DR: BAUTISTA/kevin JOB#: [id number] / [id number] ROMY
[2019-11-11] MEDS: GABAPENTIN 400 MG CAPSULE. PO SCH ×2 (08:56→14:41)
[2019-11-11] MEDS: AMITRIPTYLINE HCL 25 MG TABLET. PO SCH (08:56)
[2019-11-11] MEDS: ASPIRIN ENTERIC COATED 81 MG TABLET.DR. PO SCH (08:56)
[2019-11-11] MEDS: PANTOPRAZOLE 40 MG TABLET.DR. PO SCH (08:56)
[2019-11-11] MEDS: SUCRALFATE 1 GM TABLET. PO SCH (08:56)
[2019-11-11] MEDS: amLODIPine BESYLATE 5 MG TABLET PO SCH (08:57)
[2019-11-11] MEDS: LIDOCAINE (700MG/PATCH) PATCH. TD SCH (08:58)
--- NOTE | 2019-11-11 09:53 | CARD ---
MR#: [id number] Date of Study: 11/10/2019 Ordering Physician: MATT OSORIO, Referring Physician: MATT OSORIO, Tech: Miya Tirado APPROVED REPORT EXAM: Two-dimensional and M-mode echocardiogram with Doppler and color Doppler. Other Information Quality : AverageHR: 71bpm INDICATION Chest Pain Elevated Troponin RISK FACTORS Hypertension 2D DIMENSIONS Left Atrium(2D)3.5 (1.6-4.0cm)IVSd1.1 (0.7-1.1cm) Aortic Root(2D)3.2 (2.0-3.7cm)LVDd4.5 (3.9-5.9cm) LVOT Diameter2.0 (1.8-2.4cm)PWd1.1 (0.7-1.1cm) LVDs2.8 (2.5-4.0cm)FS (%) 37.3 % SV60.9 mlLVEF(%)67.5 (>50%) Aortic Valve AoV Peak Danny.130.9cm/sAoV VTI24.8cm AO Peak GR.6.9mmHgLVOT VTI 20.66cm AO Mean GR.4mmHg Mitral Valve MV E Qpwmauik56.1cm/sMV E Peak Gr.2mmHg MV DECEL [id number] A Anmictku92.3cm/s MV E Mean Gr.1mmHgE/A Ratio0.9 TDI Lateral E' P. V6.24cm/sMedial E' P. V6.31cm/s E/Lateral E'8.5E/Medial E'8.4 Tricuspid Valve TR P. Ysbwfodk256lw/sRAP [id number] TR Peak Gr.50dwLrOTAS42naZh Pulmonary Vein S1 Reyzvhwh95.8cm/sS2 Gvksycqy49.75cm/s D2 Vulazlag70.8cm/sPVa [id number] LEFT VENTRICLE The left ventricle is normal size. There is borderline to mild concentric left ventricular hypertroph y. The left ventricular systolic function is normal. The Ejection Fraction is 55%. There is normal LV segmental wall motion. Transmitral Doppler flow pattern is Grade I-abnormal relaxation pattern. RIGHT VENTRICLE The right ventricle is normal size. There is normal right ventricular wall thickness. The right ventr icular systolic function is normal. ATRIA The left atrium size is normal. The right atrium size is normal. The interatrial septum is intact wit h no evidence for an atrial septal defect or patent foramen ovale as noted on 2-D or Doppler imaging. AORTIC VALVE The aortic valve is normal in structure and function. Doppler and Color Flow revealed no significant aortic regurgitation. There is no significant aortic valvular stenosis. Calculated aortic valve area is 2.45 cm2 with maximum pressure gradient of 7 mmHg and mean pressure gradient of 5 mmHg. MITRAL VALVE The mitral valve is normal in structure and function. There is no evidence of mitral valve prolapse. There is no mitral valve stenosis. Doppler and Color-flow revealed trace mitral regurgitation. TRICUSPID VALVE The tricuspid valve is normal in structure and function. Doppler and Color Flow revealed trace tricus pid regurgitation with an estimated PAP of 30 mmHg. There is no tricuspid valve stenosis. PULMONIC VALVE The pulmonic valve is not well visualized. Doppler and Color Flow revealed no pulmonic valvular regur gitation. GREAT VESSELS The aortic root is normal in size. The IVC was not visualized. PERICARDIAL EFFUSION There is no evidence of significant pericardial effusion. Critical Notification Critical Value: No <Conclusion> The left ventricular systolic function is normal. The Ejection Fraction is 55%. There is normal LV segmental wall motion. Transmitral Doppler flow pattern is Grade I-abnormal relaxation pattern. Trace mitral regurgitation. Trace tricuspid regurgitation with an estimated PAP of 30 mmHg. There is no evidence of significant pericardial effusion. Signed by : Parag Kaba, Electronically Approved : 11/11/2019 09:53:04
[2019-11-11 10:53] VITALS: BP 151/90
--- NOTE | 2019-11-11 11:04 | PDOC ---
Date of Service: DATE: 11/11/19 TIME: 11:02 Subjective: Subjective: Feeling better, going home today. Objective: Vital Signs: Vital Signs Date Time Temp Pulse Resp B/P (MAP) Pulse Ox O2 Delivery O2 Flow Rate FiO2 11/11/19 10:53 98.3 85 18 151/90 (110) 100 Room Air 98.3 Labs: Laboratory Tests Test 11/11/19 07:00 Sodium Level 138 mmol/L Potassium Level 3.5 mmol/L Chloride Level 104 mmol/L Carbon Dioxide Level 27 mmol/L Anion Gap 7 Blood Urea Nitrogen 22 mg/dL Creatinine 1.9 mg/dL Estimated GFR (Cockcroft-Gault) 42.5 Glucose Level 86 mg/dL Calcium Level 7.9 mg/dL URINE CULTURE Preliminary Preliminary GREATER THAN 100,000 CFU/ML GRAM POSITIVE COCCI on 11/11/19 at 0827 PRELIMINARY ID= [[email or web address] [email or web address]] Imaging: Echo <Conclusion> The left ventricular systolic function is normal. The Ejection Fraction is 55%. There is normal LV segmental wall motion. Transmitral Doppler flow pattern is Grade I-abnormal relaxation pattern. Trace mitral regurgitation. Trace tricuspid regurgitation with an estimated PAP of 30 mmHg. There is no evidence of significant pericardial effusion. PE: GEN: NAD - talking on the phone LUNGS: CTAB HEART: RRR ABD: NABS, S/ND/NT NEURO/PSYCH: A & O 3 A/P: Abd/chest pain, vomiting - resolved GERD, chronic anemia UTI -- DC per primary on PPI QD. Plans for outpt MPI per cardiology. Justicifation of Admission Dx: Justifications for Admission: Justification of Admission Dx: Yes Sepsis: Dehydration SELENE CAREY Nov 11, 2019 11:04
[2019-11-11] MEDS: cefTRIAXone IV Push 1 GM VIAL. IVP SCH (14:42)
--- NOTE | 2019-11-11 17:00 | NUR ---
Discharge Note: REINIER GREY NEWTON Discharge instructions and discharge home medications reviewed with patient and a copy given. All questions have been answered and understanding verbalized. The following instructions and handouts were given: prescriptions for carafate, pantoprazole, keflex, gabapentin given to patient Take home meds as directed. Cardiac MPI/stress test as outpatient. Follow up with PCP in a week. Discontinued lines and drains: peripheral IV intact, patient tolerated removal, no complications noted. Patient discharged to home with self-care via wheelchair accompanied by family member at 1650.
== END 2019-11-11 16:50 | disposition home or self-care (01) | DRG 391 ==
LOC: ER 12:03 → 2 NORTH 15:40
PROVIDERS: ADMIT Internal Medicine; ATTEND Internal Medicine
DX: K29.70 Gastritis, unspecified, without bleeding (principal); N17.0 Acute kidney failure with tubular necrosis; N39.0 Urinary tract infection, site not specified; N40.1 Benign prostatic hyperplasia with lower urinary tract symptoms; R07.89 Other chest pain; D64.9 Anemia, unspecified; E03.9 Hypothyroidism, unspecified; E11.22 Type 2 diabetes mellitus with diabetic chronic kidney disease; E78.5 Hyperlipidemia, unspecified; E86.0 Dehydration; G89.29 Other chronic pain; H91.92 Unspecified hearing loss, left ear; I12.9 Hypertensive chronic kidney disease with stage 1 through stage 4 chronic kidney disease, or unspecified chronic kidney disease; K21.9 Gastro-esophageal reflux disease without esophagitis; I16.0 Hypertensive urgency; N18.3 Chronic kidney disease, stage 3 (moderate); Z80.7 Family history of other malignant neoplasms of lymphoid, hematopoietic and related tissues; Z87.11 Personal history of peptic ulcer disease; M19.90 Unspecified osteoarthritis, unspecified site
CPT/HCPCS: 36415; 71045; 74176; 80048; 80053; 80061; 81001; 82553; 83690; 83735; 83880; 84443; 84484; 85025; 85610; 85730; 87077; 87086; 87186; 93005; 93306; 96361; 96374; 96375; 99285; J0696; J2405; J3010; J3490; J7030; Q9966; G0378

== ENCOUNTER → 2019-11-27 | Outpatient (CLI) | payer MEDICARE ==
[2019-11-11 10:53] VITALS: BP 151/90
[~2019-11-27] MED LIST changes: +AMIT25TA PO; +ASPI-886 PO; +ATOR40TA59 PO; +GABA-689 PO; +LIDO1ADH63 TD; +MELO7.5T29 PO; +PANT40TA6 PO; +SUCR1TAB PO; +TRIA15CR3 TD
--- NOTE | 2019-11-27 11:58 | RAD ---
EXAM: Cervical spine MRI without contrast. HISTORY: Neck pain and left hand weakness. TECHNIQUE: Multiplanar, multisequence magnetic resonance imaging of the cervical spine was performed without contrast. COMPARISON: CT dated 01/24/2017 and MRI dated 11/05/2016. FINDINGS: There is instrumented anterior spinal fusion and interbody fusion at C4-C7. There is partial bony bridging at the fused levels. There is kyphosis at the fused levels. There is minimal anterolisthesis of C7 on T1. There is no fracture or suspicious osseous lesion. There is deformation of the cervical spinal cord at multiple levels due to stenosis. No convincing spinal cord edema or myelomalacia is seen. At C2-C3, there is a shallow right paracentral to foraminal disc protrusion and endplate remodeling. There is severe right facet arthropathy. There is mild right foraminal stenosis. There is slight flattening of the ventral aspect of the spinal cord and mild central canal stenosis measuring 9.0 and then in anterior posterior dimension. At C3-C4, there is a shallow left paracentral disc protrusion and there are right greater than left posterior lateral disc osteophyte complexes. There is moderate bilateral facet arthropathy. There is uncovertebral arthropathy. There is severe right and gucl-[id number] left foraminal stenosis. There is flattening of the ventral aspect of spinal cord and mild central canal stenosis measuring 9.0 mm in anteroposterior dimension. At C4-C5, there is instrumented fusion. There is a posterior central and endplate bony bridging. There is mild bilateral facet arthropathy. There is deformation of the ventral aspect of the spinal cord and mild central canal stenosis measuring 9.0 mm in anterior posterior dimension. At C5-C6, there is instrumented fusion. There is mild bilateral facet arthropathy. There is right uncovertebral arthropathy. There is mild right foraminal stenosis. There is slight effacement of the ventral thecal sac without significant central canal stenosis. At C6-C7, there is instrumented fusion. There is mild bilateral facet arthropathy. There is mild left foraminal stenosis. At C7-T1, there is a disc bulge. There is severe bilateral facet arthropathy. There is moderate right and mild left foraminal stenosis. IMPRESSION: 1. Interval instrumented fusion at C4-C7. 2. Multilevel degenerative change involving the cervical spine, described in detail above. This is associated with foraminal and central canal stenosis at the aforementioned levels. These findings are not significant change at the noninstrumented levels compared to the prior MRI. 3. 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 No convincing spinal cord edema or myelomalacia is seen. Electronically signed by: Shelly Velarde MD (11/27/2019 11:55 AM) [facility]
== END | disposition home or self-care (01) ==
LOC: MRI 10:23
PROVIDERS: ATTEND Internal Medicine
DX: M47.23 Other spondylosis with radiculopathy, cervicothoracic region (principal); M43.22 Fusion of spine, cervical region; M48.03 Spinal stenosis, cervicothoracic region
CPT/HCPCS: 72141

== ENCOUNTER 2019-12-11 20:16 | Emergency (ER) | payer MEDICARE ==
[~2019-12-11] VITALS: Ht 172.7 cm; Wt 63.6 kg
[2019-12-11 20:44] LABS: BASO % 0 % (0-3); EOS # 0.1 x10^3/uL (0.0-0.7); EOS % 2 % (0-3); HEMATOCRIT 29.4 % (39.0-53.0); HEMOGLOBIN 9.6 g/dL (13.0-17.5); LYMPH # 2.2 x10^3/uL (1.0-4.8); LYMPH % 30 % (24-48); MEAN CORPUSCULAR HEMOGLOBIN 29 pg (25-35); MEAN CORPUSCULAR HGB CONC 33 g/dL (31-37); MEAN CORPUSCULAR VOLUME 90 fL (79-100); MONO # 0.8 x10^3/uL (0.0-1.1); MONO % 11 % (0-9); NEUT # 4.2 x10^3/uL (1.8-7.7); NEUT % 58 % (31-73); PLATELET COUNT 381 x10^3/uL (140-400); RED BLOOD COUNT 3.29 x10^6/uL (4.30-5.70); RED CELL DISTRIBUTION WIDTH 15.3 % (11.5-14.5); WHITE BLOOD COUNT 7.3 x10^3/uL (4.0-11.0)
[2019-12-11 20:51] LABS: CREATININE 3.9 mg/dL (0.7-1.3); GFR 18.5; POTASSIUM 4.6 mmol/L (3.5-5.1)
[2019-12-11 20:57] LABS: ALBUMIN/GLOBULIN RATIO 0.9 (1.0-1.7); TOTAL BILIRUBIN 0.2 mg/dL (0.2-1.0); TOTAL PROTEIN 6.5 g/dL (6.4-8.2)
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
--- NOTE | 2019-12-11 21:04 | RAD ---
Chest AP portable at 2038: Reason for examination: Chest pain. Comparison is made to previous study dated 11/09/2019. The heart size is normal. Mediastinum is unremarkable. The lung manzano are clear. No acute bony abnormalities are seen. IMPRESSION: No acute cardiopulmonary disease evident. Electronically signed by: Fadia Miranda MD (12/11/2019 9:02 PM) [facility]
[2019-12-11] MEDS ORDERED: ACETAMINOPHEN 325 MG TABLET. PO ONE (22:00)
[2019-12-11] MEDS ORDERED: IV NORMAL SALINE 1000ML BAG 1,000 ML IV ONE ×2 (22:00→22:15)
[2019-12-11 23:04] VITALS: BP 115/67
== END 2019-12-11 23:25 | disposition home or self-care (01) ==
LOC: ER 20:16
DX: I95.9 Hypotension, unspecified (principal); R07.89 Other chest pain; K21.9 Gastro-esophageal reflux disease without esophagitis; I10 Essential (primary) hypertension; N18.9 Chronic kidney disease, unspecified; F10.10 Alcohol abuse, uncomplicated; G89.29 Other chronic pain; Z98.890 Other specified postprocedural states; Z90.89 Acquired absence of other organs
CPT/HCPCS: 36415; 71045; 80053; 84484; 85025; 96360; 96361; 99285; J7030

== ENCOUNTER → 2020-01-04 | Outpatient (CLI) | payer MEDICARE ==
[2019-12-11 23:04] VITALS: BP 115/67
[~2020-01-04] MED LIST changes: +AMLO-186 PO; -AMLO5TAB10 PO; +REGADENOSON 0.4 MG/5 ML DISP.SYRIN. IV ONE
--- NOTE | 2020-01-04 12:49 | RAD ---
MR#: [id number] Date of Study: 01/04/2020 Ordering Physician: ALYSE NEGRO, Referring Physician: ALLI ALANIZ Tech: RT Edmund (R) (N) APPROVED REPORT Test Type: Pharmacological Stress Nurse/Tech: Sunni Saunders RN Test Indications: chest pain Cardiac History: HTN Medications: See Electronic Medical Record Medical History: See Electronic Medical Record Resting ECG: SR Resting Heart Rate: 76 bpm Resting Blood Pressure: 155/88mmHg Pretest Chest Pain: None Nurse/Tech Notes Lungs CTA, S1S2 Consent: The procedure was explained to the patient in lay terms. Informed consent was witnessed. Regan eout was entered into [employer]. History and Stress Test performed by CORNEL Vincent Pharm. Details Pharmacologic stress testing was performed using 0.4mg per 5ml of regadenoson given intravenously ove r 7-10 seconds. Stress Symptoms No chest pain or symptoms. POST EXERCISE Reason for Termination: Infusion complete Max HR: 97 bpm Max Blood Pressure: 154/68mmHg Blood Pressure response to exercise: Normal blood pressure response during stress. Heart Rate response to exercise: normal response Chest Pain: No. Arrhythmia: No. ST Change: No. INTERPRETATION Stress EKG Conclusion: No evidence of stress induced EKG changes. Imaging Protocol IMAGE PROTOCOL: Rest Tc-99m/stress Tc-99m 1 day Rest: Stress: Viability: Radiopharm.Tc99m [id number] Sestamibi Glzt83mAu 33mCi Duration 15min. 15min. Img Date 01/04/2020 01/04/2020 Inj-Img [id number]. 60min. Rest Admin Site:IV - Left AntecubitalAdministrator:CORNEL Vincent Stress Admin Site: IV - Left AntecubitalAdministrator: CORNEL Vincent STRESS DATA End Diast. Vol.127.0mlAv. Heart Rate86.0bpm End Syst. Vol.37.0mlCO Index BSA0.0L/min Myocardial Foit207.0gEject. Psyvsgxh23.0% Stress Rates Pk. Fill Rate3.71EDV/secLVtime Pk. Fill 181.66msec Pk. Empty Rate4.26ESV/secLVtime Pk. Xgndg617.91msec 1/3 Pk. Fill1.46EDV/sec Stress Scores Regional WT0.00Summed WT6.00 Regional WM0.00Summed WM1.00 The rest and stress images show normal perfusion, normal contraction and thickening. LV Perf. Quant 17 Seg. SSS1.00 17 Seg. SRS0.00 17 Seg. SDS1.00 Stress Defect Extent (% LAD)0.00Rest Defect Extent (% LAD)0.00Rev. Defect Extent (% LAD)0.00 Stress Defect Extent (% LCX) 0.00Rest Defect Extent (% LCX)0.00Rev. Defect Extent (% LCX)0.00 Stress Defect Extent (% RCA)0.00Rest Defect Extent (% RCA)0.00Rev. Defect Extent (% RCA)0.00 Stress Defect Extent (% FLORENCE)0.90Rest Defect Extent (% FLORENCE)0.00Rev. Defect Extent (% FLORENCE)0.20 Other Information Quality:Good Risk Assessment: Low Risk Conclusion 1. No evidence of EKG changes with stress testing. 2. Normal perfusion at stress/rest. 3. Low risk study. 4. EF > 60%. Signed by : Alyse Negro, Electronically Approved : 01/04/2020 12:49:21
== END ==
LOC: NM 09:11
PROVIDERS: ATTEND Internal Medicine Cardiovascular Disease
DX: R07.9 Chest pain, unspecified (principal)
CPT/HCPCS: 78452; 93017; A9500; J2785

== ENCOUNTER → 2020-03-24 | Outpatient (CLI) | payer MEDICARE ==
[2020-02-24 11:20] VITALS: BP 126/73
[~2020-03-24] MED LIST changes: -REGADENOSON 0.4 MG/5 ML DISP.SYRIN. IV ONE
[2020-03-24 11:05] LABS: BASO % 0 % (0-3); EOS % 1 % (0-3); HEMOGLOBIN 9.9 g/dL (13.0-17.5); LYMPH # 1.3 x10^3/uL (1.0-4.8); LYMPH % 19 % (24-48); MEAN CORPUSCULAR HEMOGLOBIN 26 pg (25-35); MEAN CORPUSCULAR HGB CONC 31 g/dL (31-37); MEAN CORPUSCULAR VOLUME 83 fL (79-100); MONO # 0.8 x10^3/uL (0.0-1.1); MONO % 11 % (0-9); NEUT # 4.7 x10^3/uL (1.8-7.7); NEUT % 69 % (31-73); PLATELET COUNT 448 x10^3/uL (140-400); RED BLOOD COUNT 3.84 x10^6/uL (4.30-5.70); RED CELL DISTRIBUTION WIDTH 16.7 % (11.5-14.5)
[2020-03-24 12:01] LABS: ALBUMIN 3.8 g/dL (3.4-5.0); ALBUMIN/GLOBULIN RATIO 1.2 (1.0-1.7); CALCIUM 8.9 mg/dL (8.5-10.1); CREATININE 1.5 mg/dL (0.7-1.3); GFR 55.8; POTASSIUM 4.7 mmol/L (3.5-5.1); TOTAL BILIRUBIN 0.3 mg/dL (0.2-1.0); TOTAL PROTEIN 6.9 g/dL (6.4-8.2)
[2020-03-24 18:18] LABS: WHITE BLOOD COUNT 6.8 x10^3/uL (4.0-11.0)
[2020-03-25 15:17] LABS: KAPPA FREE 33.7 mg/L (3.3-19.4); KAPPA LAMBDA RATIO 1.09 (0.26-1.65)
== END ==
LOC: SPEC 10:42 → ONCLAB 10:42 → EDSTATUS 15:39
PROVIDERS: ATTEND Internal Medicine Hematology & Oncology
DX: D50.0 Iron deficiency anemia secondary to blood loss (chronic) (principal)
CPT/HCPCS: 36415; 80053; 82525; 82607; 82728; 82746; 82784; 83010; 83520; 83540; 83550; 83615; 84165; 85025; 85045; 86334

== ENCOUNTER → 2020-05-03 | Outpatient (CLI) | payer MEDICARE ==
[2020-02-24 11:20] VITALS: BP 126/73
[~2020-05-03] MED LIST changes: -DOCU-150 PO; +DOCU-158 PO; +METH-562 PO; -METH750T2 PO
[2020-05-03 10:43] LABS: BASO % 1 % (0-3); EOS # 0.1 x10^3/uL (0.0-0.7); EOS % 2 % (0-3); HEMATOCRIT 26.8 % (39.0-53.0); HEMOGLOBIN 8.7 g/dL (13.0-17.5); LYMPH # 0.8 x10^3/uL (1.0-4.8); LYMPH % 21 % (24-48); MEAN CORPUSCULAR HEMOGLOBIN 27 pg (25-35); MEAN CORPUSCULAR HGB CONC 33 g/dL (31-37); MEAN CORPUSCULAR VOLUME 84 fL (79-100); MONO # 0.5 x10^3/uL (0.0-1.1); MONO % 15 % (0-9); NEUT # 2.2 x10^3/uL (1.8-7.7); NEUT % 61 % (31-73); PLATELET COUNT 295 x10^3/uL (140-400); RED BLOOD COUNT 3.18 x10^6/uL (4.30-5.70); RED CELL DISTRIBUTION WIDTH 18.7 % (11.5-14.5); WHITE BLOOD COUNT 3.6 x10^3/uL (4.0-11.0)
== END ==
LOC: ONCLAB 10:16
PROVIDERS: ATTEND Internal Medicine Hematology & Oncology
DX: D50.0 Iron deficiency anemia secondary to blood loss (chronic) (principal)
CPT/HCPCS: 36415; 82728; 83540; 83550; 85025

== ENCOUNTER → 2020-05-10 | Outpatient (CLI) | payer MEDICARE ==
[2020-02-24 11:20] VITALS: BP 126/73
[2020-05-10 11:25] LABS: BASO # 0.1 x10^3/uL (0.0-0.2); BASO % 1 % (0-3); EOS % 1 % (0-3); HEMATOCRIT 34.6 % (39.0-53.0); HEMOGLOBIN 11.1 g/dL (13.0-17.5); LYMPH # 1.1 x10^3/uL (1.0-4.8); LYMPH % 15 % (24-48); MEAN CORPUSCULAR HEMOGLOBIN 27 pg (25-35); MEAN CORPUSCULAR HGB CONC 32 g/dL (31-37); MEAN CORPUSCULAR VOLUME 84 fL (79-100); MONO # 0.6 x10^3/uL (0.0-1.1); MONO % 9 % (0-9); NEUT # 5.4 x10^3/uL (1.8-7.7); NEUT % 74 % (31-73); PLATELET COUNT 432 x10^3/uL (140-400); RED BLOOD COUNT 4.14 x10^6/uL (4.30-5.70); RED CELL DISTRIBUTION WIDTH 19.7 % (11.5-14.5); WHITE BLOOD COUNT 7.2 x10^3/uL (4.0-11.0)
[2020-05-10 12:11] LABS: BASO # 0.1 x10^3/uL (0.0-0.2); BASO % 1 % (0-3); EOS % 0 % (0-3); HEMATOCRIT 32.9 % (39.0-53.0); HEMOGLOBIN 10.8 g/dL (13.0-17.5); LYMPH # 0.9 x10^3/uL (1.0-4.8); LYMPH % 13 % (24-48); MEAN CORPUSCULAR HEMOGLOBIN 27 pg (25-35); MEAN CORPUSCULAR HGB CONC 33 g/dL (31-37); MEAN CORPUSCULAR VOLUME 83 fL (79-100); MONO # 0.6 x10^3/uL (0.0-1.1); MONO % 9 % (0-9); NEUT # 5.6 x10^3/uL (1.8-7.7); NEUT % 77 % (31-73); PLATELET COUNT 410 x10^3/uL (140-400); RED BLOOD COUNT 3.95 x10^6/uL (4.30-5.70); RED CELL DISTRIBUTION WIDTH 19.1 % (11.5-14.5); WHITE BLOOD COUNT 7.2 x10^3/uL (4.0-11.0)
[2020-05-10 12:24] LABS: CALCIUM 9.5 mg/dL (8.5-10.1); CREATININE 1.7 mg/dL (0.7-1.3); GFR 48.3; POTASSIUM 4.6 mmol/L (3.5-5.1)
== END ==
LOC: ONCLAB 11:03
PROVIDERS: ATTEND Physician Assistant
DX: D50.0 Iron deficiency anemia secondary to blood loss (chronic) (principal)
CPT/HCPCS: 36415; 80048; 85025

== ENCOUNTER → 2020-05-19 | Outpatient (CLI) | payer MEDICARE ==
[2020-02-24 11:20] VITALS: BP 126/73
[~2020-05-19] MED LIST changes: +DOCU-150 PO; -DOCU-158 PO
[2020-05-19 10:47] LABS: BASO % 1 % (0-3); EOS # 0.1 x10^3/uL (0.0-0.7); EOS % 1 % (0-3); HEMATOCRIT 34.7 % (39.0-53.0); HEMOGLOBIN 11.1 g/dL (13.0-17.5); LYMPH % 14 % (24-48); MEAN CORPUSCULAR HEMOGLOBIN 28 pg (25-35); MEAN CORPUSCULAR HGB CONC 32 g/dL (31-37); MEAN CORPUSCULAR VOLUME 87 fL (79-100); MONO % 13 % (0-9); NEUT # 5.5 x10^3/uL (1.8-7.7); NEUT % 72 % (31-73); PLATELET COUNT 386 x10^3/uL (140-400); RED BLOOD COUNT 3.97 x10^6/uL (4.30-5.70); RED CELL DISTRIBUTION WIDTH 24.4 % (11.5-14.5); WHITE BLOOD COUNT 7.7 x10^3/uL (4.0-11.0)
== END ==
LOC: ONCLAB 10:28
PROVIDERS: ATTEND Internal Medicine Hematology & Oncology
DX: D50.0 Iron deficiency anemia secondary to blood loss (chronic) (principal)
CPT/HCPCS: 36415; 82728; 83540; 83550; 85025

== ENCOUNTER → 2020-06-17 | Outpatient (CLI) | payer MEDICARE ==
[2020-02-24 11:20] VITALS: BP 126/73
[2020-06-17 10:20] LABS: BASO % 1 % (0-3); EOS # 0.2 x10^3/uL (0.0-0.7); EOS % 4 % (0-3); HEMATOCRIT 34.3 % (39.0-53.0); HEMOGLOBIN 10.9 g/dL (13.0-17.5); LYMPH # 1.5 x10^3/uL (1.0-4.8); LYMPH % 26 % (24-48); MEAN CORPUSCULAR HEMOGLOBIN 29 pg (25-35); MEAN CORPUSCULAR HGB CONC 32 g/dL (31-37); MEAN CORPUSCULAR VOLUME 92 fL (79-100); MONO # 0.7 x10^3/uL (0.0-1.1); MONO % 12 % (0-9); NEUT # 3.5 x10^3/uL (1.8-7.7); NEUT % 58 % (31-73); PLATELET COUNT 369 x10^3/uL (140-400); RED BLOOD COUNT 3.72 x10^6/uL (4.30-5.70); RED CELL DISTRIBUTION WIDTH 23.6 % (11.5-14.5)
== END ==
LOC: ONCLAB 09:57
PROVIDERS: ATTEND Internal Medicine Hematology & Oncology
DX: D50.0 Iron deficiency anemia secondary to blood loss (chronic) (principal)
CPT/HCPCS: 36415; 82728; 83540; 83550; 85025

== ENCOUNTER → 2020-10-14 | Outpatient (CLI) | payer MEDICARE ==
[2020-02-24 11:20] VITALS: BP 126/73
[~2020-10-14] MED LIST changes: -DOCU-150 PO; +DOCU-158 PO
[2020-10-14 10:25] LABS: BASO % 1 % (0-3); EOS # 0.1 x10^3/uL (0.0-0.7); EOS % 2 % (0-3); HEMATOCRIT 39.8 % (39.0-53.0); HEMOGLOBIN 13.1 g/dL (13.0-17.5); LYMPH # 1.7 x10^3/uL (1.0-4.8); LYMPH % 26 % (24-48); MEAN CORPUSCULAR HEMOGLOBIN 33 pg (25-35); MEAN CORPUSCULAR HGB CONC 33 g/dL (31-37); MEAN CORPUSCULAR VOLUME 100 fL (79-100); MONO # 0.7 x10^3/uL (0.0-1.1); MONO % 11 % (0-9); NEUT # 3.9 x10^3/uL (1.8-7.7); NEUT % 60 % (31-73); PLATELET COUNT 288 x10^3/uL (140-400); RED CELL DISTRIBUTION WIDTH 13.8 % (11.5-14.5); WHITE BLOOD COUNT 6.4 x10^3/uL (4.0-11.0)
== END ==
LOC: ONCLAB 10:04
PROVIDERS: ATTEND Internal Medicine Hematology & Oncology
DX: D50.0 Iron deficiency anemia secondary to blood loss (chronic) (principal)
CPT/HCPCS: 36415; 82728; 83540; 83550; 85025

== ENCOUNTER → 2020-11-11 | Outpatient (CLI) | payer MEDICARE ==
[2020-02-24 11:20] VITALS: BP 126/73
[2020-11-11 11:40] LABS: BASO % 1 % (0-3); EOS # 0.1 x10^3/uL (0.0-0.7); EOS % 1 % (0-3); HEMATOCRIT 36.7 % (39.0-53.0); HEMOGLOBIN 12.2 g/dL (13.0-17.5); LYMPH # 1.2 x10^3/uL (1.0-4.8); LYMPH % 17 % (24-48); MEAN CORPUSCULAR HEMOGLOBIN 33 pg (25-35); MEAN CORPUSCULAR HGB CONC 33 g/dL (31-37); MEAN CORPUSCULAR VOLUME 100 fL (79-100); MONO % 14 % (0-9); NEUT # 4.4 x10^3/uL (1.8-7.7); NEUT % 67 % (31-73); PLATELET COUNT 389 x10^3/uL (140-400); RED BLOOD COUNT 3.68 x10^6/uL (4.30-5.70); RED CELL DISTRIBUTION WIDTH 14.6 % (11.5-14.5); WHITE BLOOD COUNT 6.7 x10^3/uL (4.0-11.0)
== END ==
LOC: ONCLAB 11:14
PROVIDERS: ATTEND Internal Medicine Hematology & Oncology
DX: D50.0 Iron deficiency anemia secondary to blood loss (chronic) (principal)
CPT/HCPCS: 36415; 82728; 83540; 83550; 85025

== ENCOUNTER → 2020-11-25 | Outpatient (CLI) | payer MEDICARE ==
[2020-02-24 11:20] VITALS: BP 126/73
[2020-11-25 12:13] LABS: BASO % 1 % (0-3); EOS # 0.1 x10^3/uL (0.0-0.7); EOS % 2 % (0-3); HEMATOCRIT 37.9 % (39.0-53.0); HEMOGLOBIN 12.4 g/dL (13.0-17.5); LYMPH # 1.2 x10^3/uL (1.0-4.8); LYMPH % 19 % (24-48); MEAN CORPUSCULAR HEMOGLOBIN 33 pg (25-35); MEAN CORPUSCULAR HGB CONC 33 g/dL (31-37); MEAN CORPUSCULAR VOLUME 100 fL (79-100); MONO # 0.6 x10^3/uL (0.0-1.1); MONO % 10 % (0-9); NEUT # 4.3 x10^3/uL (1.8-7.7); NEUT % 69 % (31-73); PLATELET COUNT 255 x10^3/uL (140-400); RED CELL DISTRIBUTION WIDTH 14.1 % (11.5-14.5); WHITE BLOOD COUNT 6.2 x10^3/uL (4.0-11.0)
[2020-11-25 12:26] LABS: CALCIUM 8.2 mg/dL (8.5-10.1); CREATININE 1.9 mg/dL (0.7-1.3); GFR 42.4; POTASSIUM 4.8 mmol/L (3.5-5.1)
[2020-11-25 12:44] LABS: ALBUMIN 3.2 g/dL (3.4-5.0); TOTAL BILIRUBIN 0.3 mg/dL (0.2-1.0); TOTAL PROTEIN 6.5 g/dL (6.4-8.2)
== END ==
LOC: ONCLAB 10:57
PROVIDERS: ATTEND Physician Assistant
DX: D50.0 Iron deficiency anemia secondary to blood loss (chronic) (principal)
CPT/HCPCS: 36415; 80053; 82728; 83540; 83550; 85025

== ENCOUNTER → 2020-11-30 | Outpatient (CLI) | payer MEDICARE ==
[2020-02-24 11:20] VITALS: BP 126/73
[2020-11-30 09:51] LABS: BASO % 0 % (0-3); EOS # 0.1 x10^3/uL (0.0-0.7); EOS % 2 % (0-3); HEMATOCRIT 36.5 % (39.0-53.0); LYMPH # 1.3 x10^3/uL (1.0-4.8); LYMPH % 22 % (24-48); MEAN CORPUSCULAR HEMOGLOBIN 33 pg (25-35); MEAN CORPUSCULAR HGB CONC 33 g/dL (31-37); MEAN CORPUSCULAR VOLUME 100 fL (79-100); MONO # 0.7 x10^3/uL (0.0-1.1); MONO % 12 % (0-9); NEUT # 3.8 x10^3/uL (1.8-7.7); NEUT % 64 % (31-73); PLATELET COUNT 283 x10^3/uL (140-400); RED BLOOD COUNT 3.65 x10^6/uL (4.30-5.70); RED CELL DISTRIBUTION WIDTH 14.2 % (11.5-14.5); WHITE BLOOD COUNT 5.9 x10^3/uL (4.0-11.0)
== END ==
LOC: ONCLAB 09:00
PROVIDERS: ATTEND Physician Assistant
DX: D50.0 Iron deficiency anemia secondary to blood loss (chronic) (principal)
CPT/HCPCS: 36415; 85025

== ENCOUNTER → 2020-12-16 | Outpatient (CLI) | payer MEDICARE ==
[2020-02-24 11:20] VITALS: BP 126/73
[2020-12-16 10:07] LABS: BASO % 1 % (0-3); EOS # 0.1 x10^3/uL (0.0-0.7); EOS % 3 % (0-3); HEMATOCRIT 37.2 % (39.0-53.0); HEMOGLOBIN 12.3 g/dL (13.0-17.5); LYMPH # 1.1 x10^3/uL (1.0-4.8); LYMPH % 25 % (24-48); MEAN CORPUSCULAR HEMOGLOBIN 33 pg (25-35); MEAN CORPUSCULAR HGB CONC 33 g/dL (31-37); MEAN CORPUSCULAR VOLUME 100 fL (79-100); MONO # 0.6 x10^3/uL (0.0-1.1); MONO % 14 % (0-9); NEUT # 2.5 x10^3/uL (1.8-7.7); NEUT % 58 % (31-73); PLATELET COUNT 241 x10^3/uL (140-400); RED BLOOD COUNT 3.72 x10^6/uL (4.30-5.70); RED CELL DISTRIBUTION WIDTH 14.1 % (11.5-14.5); WHITE BLOOD COUNT 4.3 x10^3/uL (4.0-11.0)
[2020-12-16 10:20] LABS: CALCIUM 8.3 mg/dL (8.5-10.1); CREATININE 1.6 mg/dL (0.7-1.3); GFR 51.7; POTASSIUM 5.3 mmol/L (3.5-5.1)
== END ==
LOC: ONCLAB 09:27
PROVIDERS: ATTEND Physician Assistant
DX: D50.0 Iron deficiency anemia secondary to blood loss (chronic) (principal)
CPT/HCPCS: 36415; 80048; 85025

== ENCOUNTER 2021-05-30 10:20 | Inpatient (IN) | payer MEDICARE ==
[~2021-05-30] VITALS: Ht 167.6 cm; Wt 61.8 kg
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
[2021-05-30] MEDS ORDERED: ONDANSETRON PF 4 MG/2 ML VIAL. IVP ONE (11:15)
[2021-05-30] MEDS ORDERED: FAMOTIDINE 20 MG/2 ML VIAL IVP ONE (11:15)
[2021-05-30] MEDS ORDERED: IV NORMAL SALINE 1000ML BAG 1,000 ML IV ONE (11:15)
[2021-05-30 11:26] LABS: BASO % 0 % (0-3); EOS % 0 % (0-3); HEMATOCRIT 42.7 % (39.0-53.0); HEMOGLOBIN 13.8 g/dL (13.0-17.5); LYMPH # 0.9 x10^3/uL (1.0-4.8); LYMPH % 13 % (24-48); MEAN CORPUSCULAR HEMOGLOBIN 31 pg (25-35); MEAN CORPUSCULAR HGB CONC 32 g/dL (31-37); MEAN CORPUSCULAR VOLUME 96 fL (79-100); MONO # 0.4 x10^3/uL (0.0-1.1); MONO % 6 % (0-9); NEUT # 5.4 x10^3/uL (1.8-7.7); NEUT % 80 % (31-73); PLATELET COUNT 409 x10^3/uL (140-400); RED BLOOD COUNT 4.45 x10^6/uL (4.30-5.70); RED CELL DISTRIBUTION WIDTH 15.7 % (11.5-14.5); WHITE BLOOD COUNT 6.7 x10^3/uL (4.0-11.0)
[2021-05-30 11:41] LABS: CALCIUM 9.1 mg/dL (8.5-10.1); CREATININE 1.6 mg/dL (0.7-1.3); GFR 51.7; POTASSIUM 3.9 mmol/L (3.5-5.1)
[2021-05-30 11:49] LABS: ALBUMIN 3.7 g/dL (3.4-5.0); ALBUMIN/GLOBULIN RATIO 0.9 (1.0-1.7); MAGNESIUM 1.9 mg/dL (1.8-2.4); TOTAL BILIRUBIN 0.2 mg/dL (0.2-1.0); TOTAL PROTEIN 7.6 g/dL (6.4-8.2)
[2021-05-30 11:55] LABS: CREATINE KINASE 52 U/L (39-308)
[2021-05-30] MEDS ORDERED: IOHEXOL 300 MG/ML 100ML VIAL. IV ONE (12:00)
[2021-05-30] MEDS ORDERED: CONTRAST GIVEN. MC PRN (12:00)
[2021-05-30] MEDS ORDERED: IOHEXOL 240 MG/ML 50ML VIAL. PO ONE (12:00)
--- NOTE | 2021-05-30 13:24 | RAD ---
INDICATION: Reason: lower abdominal pain, N/V / Spl. Instructions: IV omni 300 60 mls and PO omni 240 50 mls / History: COMPARISON: November 2019 TECHNIQUE: Axial CT images were obtained through the abdomen and pelvis with intravenous contrast. One or more of the following individualized dose reduction techniques were utilized for this examinat ion: 1. Automated exposure control; 2. Adjustment of the mA and/or kV according to patient size; 3 . Use of iterative reconstruction technique. FINDINGS: Vascular: Partial visualization of coronary artery calcific atherosclerosis. Atherosclerotic disease throughout the vasculature. Soft tissue density right inguinal canal. This region is only partially seen but could be from causes such as retracted testicle. Hepatobiliary: Small amount of fluid adjacent to the liver. Gallbladder is partially contracted. Prom inent intrahepatic bile ducts. Pancreas: Dilatation of pancreatic duct. Spleen: Spleen unremarkable. Renal/Bladder: Urinary bladder is partially distended with some mild prominence the wall but this cou ld be from lack of distention. Metallic structure at the right rectus sheath which could be from embo lization. No hydronephrosis. Gastrointestinal: Colonic diverticulosis. Portion of the sigmoid colon wall appears prominent in [place] kn[place]. Dilated proximal small bowel loops measuring up to 46 mm with distal decompression. Large amou nt stool in the colon. Appendix is partially seen secondary to it abutting unopacified bowel loops. Degenerative changes of the spine. Mild scoliotic curvature with multilevel central canal and neural foraminal stenosis. Inflammatory changes at small bowel in a within the right side of the abdomen. Prominence the wall th e stomach again seen. IMPRESSION: * Dilatation of some of the proximal small bowel loops with distal decompression. Would correlate w ith symptoms since causes such as obstruction could have this appearance. * There is some wall thickening of small bowel loops at right lower quadrant the abdomen with portio n of the colon also having prominent wall thickness. Causes such as enteritis and colitis or divertic ulitis are within the differential. * Dilation of bile ducts including pancreatic duct. Stricture, stone or lesion at the ampullary alexa on is not excluded given this finding. * Small amount of fluid is seen abutting the liver. Electronically signed by: Carlton Parra MD (05/30/2021 1:22 PM) [id number]
[2021-05-30 13:26] LABS: BILIRUBIN,URINE SMALL (NEG); CLARITY,URINE CLEAR; COLOR,URINE YELLOW; NITRITE,URINE NEGATIVE (NEG); PH,URINE 6.5 (<5.0-8.0); PROTEIN,URINE 30 mg/dL (NEG-TRACE); UROBILINOGEN,URINE 0.2 mg/dL (0.2 mg/dL)
[2021-05-30 13:32] LABS: BACTERIA,URINE 0 /HPF (0-FEW); RBC,URINE 0 /HPF (0-2); WBC,URINE 0 /HPF (0-4)
[2021-05-30] MEDS ORDERED: ONDANSETRON PF 4 MG/2 ML VIAL. IVP PRN (13:45)
[2021-05-30] MEDS ORDERED: fentaNYL PF VIAL 100 MCG/2 ML VIAL IV ONE (13:45)
[2021-05-30] MEDS: IV NORMAL SALINE 1000ML BAG 1,000 ML IV SCH ×2 (13:58→16:33)
[2021-05-30] MEDS ORDERED: OXYC10TA46 PO (16:13)
[2021-05-30] MEDS: fentaNYL PF VIAL 100 MCG/2 ML VIAL IVP PRN ×2 (16:33→19:28)
[2021-05-30 16:49] VITALS: BP 159/86
[2021-05-30 19:15] VITALS: BP 156/101
[2021-05-30 23:07] VITALS: BP 147/94
[2021-05-31] MEDS: fentaNYL PF VIAL 100 MCG/2 ML VIAL IVP PRN ×5 (00:40→09:00)
[2021-05-31] MEDS ORDERED: LOSARTAN POTASSIUM 50 MG TABLET. PO ONE (01:00)
[2021-05-31 03:07] VITALS: BP 178/104
--- NOTE | 2021-05-31 05:41 | EKG ---
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
[2021-05-31 06:58] LABS: BASO % 0 % (0-3); EOS # 0.2 x10^3/uL (0.0-0.7); EOS % 3 % (0-3); HEMATOCRIT 35.2 % (39.0-53.0); HEMOGLOBIN 11.6 g/dL (13.0-17.5); LYMPH # 1.4 x10^3/uL (1.0-4.8); LYMPH % 27 % (24-48); MEAN CORPUSCULAR HEMOGLOBIN 32 pg (25-35); MEAN CORPUSCULAR HGB CONC 33 g/dL (31-37); MEAN CORPUSCULAR VOLUME 96 fL (79-100); MONO # 0.5 x10^3/uL (0.0-1.1); MONO % 10 % (0-9); NEUT # 3.1 x10^3/uL (1.8-7.7); NEUT % 60 % (31-73); PLATELET COUNT 321 x10^3/uL (140-400); RED BLOOD COUNT 3.68 x10^6/uL (4.30-5.70); RED CELL DISTRIBUTION WIDTH 15.7 % (11.5-14.5); WHITE BLOOD COUNT 5.2 x10^3/uL (4.0-11.0)
[2021-05-31 07:00] VITALS: BP 156/85
[2021-05-31 07:20] LABS: CREATININE 1.3 mg/dL (0.7-1.3); GFR 65.7
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
[2021-05-31] MEDS: LOSARTAN POTASSIUM 50 MG TABLET. PO SCH (08:59)
[2021-05-31] MEDS ORDERED: LOSARTAN POTASSIUM 50 MG TABLET. PO SCH (09:00)
--- NOTE | 2021-05-31 09:16 | PDOC ---
Provider Note Date of Service: DATE: 05/31/21 TIME: 09:16 Provider Note Pt seen .H&P dictated.#[id number]. Justifications for Admission Other Justification MATT OSORIO MD May 31, 2021 09:16
--- NOTE | 2021-05-31 10:04 | RAD ---
XR ABDOMEN 1V 05/31/2021 Reason: ileus / Spl. Instructions: / History: Comparison: Abdominal CT 05/30/2021 Technique: Single supine radiograph of the abdomen Findings: Vascular coils overlie the right inferior epigastric artery. There are prominent loops of air-filled small bowel in the midabdomen which appear decreased in size from the comparison. Enteric contrast garcia s progressed into the ascending colon. There is air in the distal colon and rectum. Scattered calcifi cations to the right of the lower lumbar spine likely vascular. Degenerative changes of the lumbar sp ine. Impression: Interval progression of enteric contrast into the large bowel makes complete small bowel obstruction unlikely. There is also relative decrease in small bowel distention. These interval changes most like ly represent ileus though partial small bowel obstruction is not completely excluded. Electronically signed by: Parminder Escobar (05/31/2021 10:02 AM) [id number]
--- NOTE | 2021-05-31 10:13 | NUR ---
SW following. Discussed with RN, pt from home, room air, NPO, COVID-19 negative, gets around fine. GI and Surgery following. RN advised no SW needs at this time. SW will continue to follow.
[2021-05-31 11:00] VITALS: BP 152/84
[2021-05-31] MEDS: IV NORMAL SALINE 1000ML BAG 1,000 ML IV SCH (11:00)
[2021-05-31] MEDS: oxyCODONE IR 5 MG TABLET PO PRN ×4 (11:00→23:16)
[2021-05-31] MEDS: PANTOPRAZOLE 40 MG TABLET.DR. PO SCH (11:00)
[2021-05-31] MEDS: LIDOCAINE (700MG/PATCH) PATCH. TD SCH (11:01)
--- NOTE | 2021-05-31 11:25 | HP ---
DATE OF SERVICE: 05/31/2021 ADMIT DATE: 05/30/2021 MEDICAL HISTORY AND PHYSICAL REASON FOR ADMISSION TO THE HOSPITAL: Abdominal pain, small bowel ileus, partial bowel obstruction. HISTORY OF PRESENT ILLNESS: The patient is a 70-year-old male. The patient was having abdominal pain for the last couple of days. He has been multiple times to the [facility] Emergency Room. The patient had a perforated gastric ulcer. This was probably more than 6 months ago last year at [facility] and he had been a couple of times for ileus and other problems and in last one week, he has been to the ER, but he was not happy with the ER and then he came here, he was having lower abdominal pain, nausea and a little bit of vomiting and came to the Emergency Room. He had a CT scan, which shows small bowel ileus and the patient was admitted to the hospital. PAST MEDICAL HISTORY: He has thyroid problems, kidney disease, hypertension, GERD, and chronic back pain. PAST SURGICAL HISTORY: Had a back surgery with foot drop. Other surgeries, laminectomy, hernia surgery, foot surgery, and perforated gastric ulcer. PERSONAL HISTORY: Denies smoking, history of alcohol use. The patient is on chronic narcotic medication. He was not supposed to take meloxicam, but I am not sure if he is still taking it or not. ALLERGIES: No known drug allergies. MEDICATIONS: At home, the patient is on aspirin 81 mg daily, Carafate 1 gram twice a day, vitamin daily, atorvastatin 40 mg daily, gabapentin 400 mg 3 times daily, lidocaine patch daily, losartan 50 mg daily, oxycodone 10 mg q. 4 hours, and pantoprazole 40 mg daily. REVIEW OF SYMPTOMS: Complains of lower abdominal pain and little bit of nausea, but as I said, is able to pass some gas. Rest of the 14-system was reviewed. PHYSICAL EXAMINATION: GENERAL: Today, the patient is not in any distress. He says he is hungry and wants to eat today. VITAL SIGNS: Temperature 98, pulse 112, respirations 20, blood pressure 151/93, and 99 on room air. HEENT: Head is atraumatic. Pupils equal. Oral cavity, dentures. NECK: Supple. Thyroid not enlarged. JVD not elevated. CHEST: Symmetrical. CARDIOVASCULAR: S1, S2. No murmurs. LUNGS: Clear to auscultation. ABDOMEN: Soft. Scar, midline, healed from surgery. The patient has some tenderness in the lower abdominal hernia areas, inguinal area. EXTERNAL GENITALIA: No Mendoza. RECTUM: Deferred. EXTREMITIES: No calf tenderness. The patient has a scar of lumbar surgery. He has some surgery, had scar in the right ankle. NEUROLOGIC: Moving all extremities. No focal deficits noted. LABORATORY DATA: Shows white count 7, hemoglobin 14, and platelets 409. Electrolytes show sodium 138, potassium 4.9, chloride 99, bicarbonate 29, BUN 18, creatinine 1.6. LFTs normal. Urine was negative. COVID test negative. DIAGNOSTIC DATA: Abdominal and pelvic CT scan shows dilatation of the proximal small bowel loop with distal decompression, some thickening of the lower right quadrant of the abdomen around the colon area. FINAL IMPRESSION: 1. Abdominal pain. 2. Small bowel ileus versus partial bowel obstruction. 3. Recent history of perforated gastric ulcer, surgery done [address] [facility]. 4. Chronic pain syndrome. 5. History of disk surgeries with foot drop. 6. Hypertension. 7. Hyperlipidemia. 8. Chronic kidney disease between stage 2 and 3. DISPOSITION: The patient was admitted to the hospital, hydrated with IV fluids. KUB for followup on the ileus, may be clear liquid diet. GI is consulted and see how he improves. RICHARD/ANANT SMITH: BAUTISTA/kevin TID: [id number]
[2021-05-31] MEDS: GABAPENTIN 400 MG CAPSULE. PO SCH ×2 (13:13→20:50)
--- NOTE | 2021-05-31 13:16 | PDOC2 ---
CONSULT Date of Consult Date of Consult DATE: 05/31/21 TIME: 13:12 Reason for Consult Reason for Consult: SBO Referring Physician Referring Physician: Dr. Johnson Identification/Chief Complaint Chief Complaint N/V abd pain Source Source: Chart review, Patient History of Present Illness Reason for Visit: 70 yo M admitted with N/V abd pain. Identified to have SBO vs ileus. Now improved. Glendy some clears. Pt with recent ventral hernia repair, unknown mesh. Hx of extensive ulcer disease with scarring by previous endoscopy. Past Medical History Cardiovascular: HTN, Hyperlipidemia Pulmonary: No pertinent hx CENTRAL NERVOUS SYSTEM: Other GI: GERD Heme/Onc: Anemia NOS Hepatobiliary: No pertinent hx Psych: No pertinent hx Musculoskeletal: low back pain, Osteoarthritis Infectious disease: No pertinent hx Renal/: Chronic renal insuff Endocrine: Hypothyroidism Past Surgical History Past Surgical History: Hernia Repair, Other Family History Family History: Cancer Social History No ALCOHOL: occassional Drugs: None Lives: with Family Domestic Violence: Neg Current Problem List Problem List Problems Medical Problems: (1) Small bowel obstruction Status: Acute Current Medications Current Medications Current Medications Sodium Chloride 1,000 ml @ 1,000 mls/hr 1X ONCE IV Last administered on 05/30/21at 11:36; Start 05/30/21 at 11:15; Stop 05/30/21 at 12:14; Status DC Ondansetron HCl (Zofran) 4 mg 1X ONCE IVP Last administered on 05/30/21at 11:37; Start 05/30/21 at 11:15; Stop 05/30/21 at 11:16; Status DC Famotidine (Pepcid Vial) 20 mg 1X ONCE IVP Last administered on 05/30/21at 11:37; Start 05/30/21 at 11:15; Stop 05/30/21 at 11:16; Status DC Iohexol (Omnipaque 240 Mg/ml) 50 ml 1X ONCE PO Last administered on 05/30/21at 12:00; Start 05/30/21 at 12:00; Stop 05/30/21 at 12:01; Status DC Iohexol (Omnipaque 300 Mg/ml) 60 ml 1X ONCE IV Last administered on 05/30/21at 12:00; Start 05/30/21 at 12:00; Stop 05/30/21 at 12:01; Status DC Info (CONTRAST GIVEN -- Rx MONITORING) 1 each PRN DAILY PRN MC SEE COMMENTS; Start 05/30/21 at 12:00; Stop 06/01/21 at 11:59 Fentanyl Citrate (Fentanyl 2ml Vial) 50 mcg 1X ONCE IV Last administered on 05/30/21at 13:57; Start 05/30/21 at 13:45; Stop 05/30/21 at 13:46; Status DC Ondansetron HCl (Zofran) 4 mg PRN Q8HRS PRN IVP NAUSEA/VOMITING; Start 05/30/21 at 13:45; Stop 05/31/21 at 13:44 Fentanyl Citrate (Fentanyl 2ml Vial) 50 mcg PRN Q2HR PRN IVP PAIN Last administered on 05/31/21at 09:00; Start 05/30/21 at 13:45 Sodium Chloride 1,000 ml @ 100 mls/hr Q10H IV Last administered on 05/31/21at 11:00; Start 05/30/21 at 13:45; Stop 05/31/21 at 13:44 Losartan Potassium (Cozaar) 50 mg DAILY PO Last administered on 05/31/21at 08:59; Start 05/31/21 at 09:00 Losartan Potassium (Cozaar) 50 mg DAILY PO ; Start 05/31/21 at 09:00; Stop 05/31/21 at 00:50; Status DC Losartan Potassium (Cozaar) 50 mg ONCE ONCE PO Last administered on 05/31/21at 01:00; Start 05/31/21 at 01:00; Stop 05/31/21 at 01:01; Status DC Atorvastatin Calcium (Lipitor) 40 mg QHS PO ; Start 06/01/21 at 21:00 Gabapentin (Neurontin) 400 mg TID PO ; Start 05/31/21 at 14:00 Lidocaine (Lidoderm) 1 patch DAILY TD Last administered on 05/31/21at 11:01; Start 05/31/21 at 10:00 Losartan Potassium (Cozaar) 50 mg DAILY PO ; Start 06/01/21 at 09:00; Status U NV Oxycodone HCl (Roxicodone) 10 mg PRN Q4HRS PRN PO PAIN Last administered on 05/31/21at 11:00; Start 05/31/21 at 09:30 Pantoprazole Sodium (Protonix) 40 mg DAILYAC PO Last administered on 05/31/21at 11:00; Start 05/31/21 at 10:00 Miscellaneous (Lidoderm Patch Removal) 1 ea QHS ; Start 05/31/21 at 21:00 Active Scripts Active Aspirin Ec (Aspirin) 81 Mg Tablet.dr 81 Mg PO DAILYWBKFT 30 Days Reported Oxycontin (Oxycodone HCl) 10 Mg Tab.er.12h 10 Mg PO Q4HRS Atorvastatin Calcium 40 Mg Tablet 40 Mg PO DAILY Meloxicam 7.5 Mg Tablet 7.5 Mg PO DAILY Sucralfate 1 Gm Tablet 1 Gm PO BID Lidocaine 1 Each Adh..patch 1 Patch TD DAILY Pantoprazole Sodium 40 Mg Tablet.dr 40 Mg PO DAILY Gabapentin (Gabapentin) 400 Mg Capsule 400 Mg PO TID Losartan Potassium 50 Mg Tablet 50 Mg PO DAILY One Daily (Multivitamin) 1 Each Tablet 1 Each PO DAILY last dose this am next dose tomorrow am Allergies Allergies: Coded Allergies: No Known Drug Allergies (Unverified , 02/24/20) ROS Gastrointestinal: Yes Nausea, Yes Vomiting, Yes Abdominal Pain Physical Exam General: Alert, Oriented X3, Cooperative, No acute distress HEENT: Atraumatic Lungs: Normal air movement Abdomen: Soft, No tenderness, Other (well healed midline incision) Skin: No rashes, No breakdown Psych/Mental Status: Mental status NL, Mood NL Vitals VITALS Vital Signs Date Time Temp Pulse Resp B/P (MAP) Pulse Ox O2 Delivery O2 Flow Rate FiO2 05/31/21 11:32 Room Air 05/31/21 11:00 97.9 72 18 152/84 (106) 100 97.9 Labs Labs Laboratory Tests Test 05/30/21 11:10 05/30/21 12:05 05/30/21 13:15 05/30/21 14:15 White Blood Count 6.7 x10^3/uL (4.0-11.0) Red Blood Count 4.45 x10^6/uL (4.30-5.70) Hemoglobin 13.8 g/dL (13.0-17.5) Hematocrit 42.7 % (39.0-53.0) Mean Corpuscular Volume 96 fL (79-100) Mean Corpuscular Hemoglobin 31 pg (25-35) Mean Corpuscular Hemoglobin Concent 32 g/dL (31-37) Red Cell Distribution Width 15.7 % (11.5-14.5) Platelet Count 409 x10^3/uL (140-400) Neutrophils (%) (Auto) 80 % (31-73) Lymphocytes (%) (Auto) 13 % (24-48) Monocytes (%) (Auto) 6 % (0-9) Eosinophils (%) (Auto) 0 % (0-3) Basophils (%) (Auto) 0 % (0-3) Neutrophils # (Auto) 5.4 x10^3/uL (1.8-7.7) Lymphocytes # (Auto) 0.9 x10^3/uL (1.0-4.8) Monocytes # (Auto) 0.4 x10^3/uL (0.0-1.1) Eosinophils # (Auto) 0.0 x10^3/uL (0.0-0.7) Basophils # (Auto) 0.0 x10^3/uL (0.0-0.2) Sodium Level 138 mmol/L (136-145) Potassium Level 3.9 mmol/L (3.5-5.1) Chloride Level 99 mmol/L (98-107) Carbon Dioxide Level 29 mmol/L (21-32) Anion Gap 10 (6-14) Blood Urea Nitrogen 18 mg/dL (8-26) Creatinine 1.6 mg/dL (0.7-1.3) Estimated GFR (Cockcroft-Gault) 51.7 BUN/Creatinine Ratio 11 (6-20) Glucose Level 116 mg/dL (70-99) Calcium Level 9.1 mg/dL (8.5-10.1) Magnesium Level 1.9 mg/dL (1.8-2.4) Total Bilirubin 0.2 mg/dL (0.2-1.0) Aspartate Amino Transf (AST/SGOT) 15 U/L (15-37) Alanine Aminotransferase (ALT/SGPT) 30 U/L (16-63) Alkaline Phosphatase 126 U/L (46-116) Creatine Kinase 52 U/L (39-308) Creatine Kinase MB (Mass) 2.1 ng/mL (0.0-3.6) Creatine Kinase MB Relative Index % (0-4) Troponin I High Sensitivity 49 ng/L (4-75) Total Protein 7.6 g/dL (6.4-8.2) Albumin 3.7 g/dL (3.4-5.0) Albumin/Globulin Ratio 0.9 (1.0-1.7) Lipase 76 U/L (73-393) Lactic Acid Level 0.7 mmol/L (0.4-2.0) Urine Collection Type Unknown Urine Color Yellow Urine Clarity Clear Urine pH 6.5 (<5.0-8.0) Urine Specific [place] 1.025 (1.000-1.030) Urine Protein 30 mg/dL (NEG-TRACE) Urine Glucose (UA) Negative mg/dL (NEG) Urine Ketones (Stick) 15 mg/dL (NEG) Urine Blood Negative (NEG) Urine Nitrite Negative (NEG) Urine Bilirubin Small (NEG) Urine Urobilinogen Dipstick 0.2 mg/dL (0.2 mg/dL) Urine Leukocyte Esterase Negative (NEG) Urine RBC 0 /HPF (0-2) Urine WBC 0 /HPF (0-4) Urine Squamous Epithelial Cells Occ /LPF Urine Bacteria 0 /HPF (0-FEW) Coronavirus (COVID-19)(PCR) Not detected (NOT DETECTD) Test 05/31/21 05:35 White Blood Count 5.2 x10^3/uL (4.0-11.0) Red Blood Count 3.68 x10^6/uL (4.30-5.70) Hemoglobin 11.6 g/dL (13.0-17.5) Hematocrit 35.2 % (39.0-53.0) Mean Corpuscular Volume 96 fL (79-100) Mean Corpuscular Hemoglobin 32 pg (25-35) Mean Corpuscular Hemoglobin Concent 33 g/dL (31-37) Red Cell Distribution Width 15.7 % (11.5-14.5) Platelet Count 321 x10^3/uL (140-400) Neutrophils (%) (Auto) 60 % (31-73) Lymphocytes (%) (Auto) 27 % (24-48) Monocytes (%) (Auto) 10 % (0-9) Eosinophils (%) (Auto) 3 % (0-3) Basophils (%) (Auto) 0 % (0-3) Neutrophils # (Auto) 3.1 x10^3/uL (1.8-7.7) Lymphocytes # (Auto) 1.4 x10^3/uL (1.0-4.8) Monocytes # (Auto) 0.5 x10^3/uL (0.0-1.1) Eosinophils # (Auto) 0.2 x10^3/uL (0.0-0.7) Basophils # (Auto) 0.0 x10^3/uL (0.0-0.2) Sodium Level 141 mmol/L (136-145) Potassium Level 4.0 mmol/L (3.5-5.1) Chloride Level 106 mmol/L (98-107) Carbon Dioxide Level 25 mmol/L (21-32) Anion Gap 10 (6-14) Blood Urea Nitrogen 12 mg/dL (8-26) Creatinine 1.3 mg/dL (0.7-1.3) Estimated GFR (Cockcroft-Gault) 65.7 Glucose Level 88 mg/dL (70-99) Calcium Level 8.0 mg/dL (8.5-10.1) Laboratory Tests Test 05/30/21 13:15 05/30/21 14:15 05/31/21 05:35 Urine Collection Type Unknown Urine Color Yellow Urine Clarity Clear Urine pH 6.5 (<5.0-8.0) Urine Specific [place] 1.025 (1.000-1.030) Urine Protein 30 mg/dL (NEG-TRACE) Urine Glucose (UA) Negative mg/dL (NEG) Urine Ketones (Stick) 15 mg/dL (NEG) Urine Blood Negative (NEG) Urine Nitrite Negative (NEG) Urine Bilirubin Small (NEG) Urine Urobilinogen Dipstick 0.2 mg/dL (0.2 mg/dL) Urine Leukocyte Esterase Negative (NEG) Urine RBC 0 /HPF (0-2) Urine WBC 0 /HPF (0-4) Urine Squamous Epithelial Cells Occ /LPF Urine Bacteria 0 /HPF (0-FEW) Coronavirus (COVID-19)(PCR) Not detected (NOT DETECTD) White Blood Count 5.2 x10^3/uL (4.0-11.0) Red Blood Count 3.68 x10^6/uL (4.30-5.70) Hemoglobin 11.6 g/dL (13.0-17.5) Hematocrit 35.2 % (39.0-53.0) Mean Corpuscular Volume 96 fL (79-100) Mean Corpuscular Hemoglobin 32 pg (25-35) Mean Corpuscular Hemoglobin Concent 33 g/dL (31-37) Red Cell Distribution Width 15.7 % (11.5-14.5) Platelet Count 321 x10^3/uL (140-400) Neutrophils (%) (Auto) 60 % (31-73) Lymphocytes (%) (Auto) 27 % (24-48) Monocytes (%) (Auto) 10 % (0-9) Eosinophils (%) (Auto) 3 % (0-3) Basophils (%) (Auto) 0 % (0-3) Neutrophils # (Auto) 3.1 x10^3/uL (1.8-7.7) Lymphocytes # (Auto) 1.4 x10^3/uL (1.0-4.8) Monocytes # (Auto) 0.5 x10^3/uL (0.0-1.1) Eosinophils # (Auto) 0.2 x10^3/uL (0.0-0.7) Basophils # (Auto) 0.0 x10^3/uL (0.0-0.2) Sodium Level 141 mmol/L (136-145) Potassium Level 4.0 mmol/L (3.5-5.1) Chloride Level 106 mmol/L (98-107) Carbon Dioxide Level 25 mmol/L (21-32) Anion Gap 10 (6-14) Blood Urea Nitrogen 12 mg/dL (8-26) Creatinine 1.3 mg/dL (0.7-1.3) Estimated GFR (Cockcroft-Gault) 65.7 Glucose Level 88 mg/dL (70-99) Calcium Level 8.0 mg/dL (8.5-10.1) Images Images CT with SBO, but KUB with improvement Assessment/Plan Assessment/Plan SBO, appears improved agree with ADAT and supportive care exterminator PPI pt may ultimately need antrectomy and reconstruction given duodenal scarring, encouraged f/u in office if wishes to consider. Thanks for consult! ANTHONY GARCIA MD May 31, 2021 13:16
[2021-05-31 15:00] VITALS: BP 151/87
[2021-05-31 19:15] VITALS: BP 142/89
[2021-05-31] MEDS: PATCH REMOVAL. MC SCH (21:00)
[2021-05-31 23:11] VITALS: BP 155/91
[2021-06-01 03:16] VITALS: BP 152/98
[2021-06-01] MEDS: oxyCODONE IR 5 MG TABLET PO PRN ×5 (03:18→20:20)
[2021-06-01 07:00] VITALS: BP 155/89
[2021-06-01] MEDS: PANTOPRAZOLE 40 MG TABLET.DR. PO SCH (07:55)
[2021-06-01] MEDS: LOSARTAN POTASSIUM 50 MG TABLET. PO SCH (07:55)
[2021-06-01] MEDS: GABAPENTIN 400 MG CAPSULE. PO SCH ×3 (07:55→21:01)
[2021-06-01] MEDS: LIDOCAINE (700MG/PATCH) PATCH. TD SCH (08:01)
[2021-06-01] MEDS ORDERED: LOSARTAN POTASSIUM 50 MG TABLET. PO SCH (09:00)
--- NOTE | 2021-06-01 10:53 | PDOC ---
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 VERTICAL 06/01/21 1053: SURGICAL PROGRESS NOTE DATE: 06/01/21 TIME: 10:50 Subjective feels much better denies abdominal pain tolerating diet + flatus, stool yesterday Vital Signs Vital Signs Date Time Temp Pulse Resp B/P (MAP) Pulse Ox O2 Delivery O2 Flow Rate FiO2 06/01/21 07:58 Room Air 06/01/21 07:55 79 152/98 06/01/21 07:00 97.9 18 98 97.9 I&O Intake and Output 06/01/21 06:59 Intake Total 540 ml Output Total 1200 ml Balance -660 ml Intake Oral 540 ml Output Urine Total 1200 ml General: Alert, Oriented X3, Cooperative Abdomen: Normal bowel sounds, Soft, No tenderness Labs Laboratory Tests Test 05/30/21 11:10 05/30/21 12:05 05/30/21 13:15 05/30/21 14:15 White Blood Count 6.7 x10^3/uL (4.0-11.0) Red Blood Count 4.45 x10^6/uL (4.30-5.70) Hemoglobin 13.8 g/dL (13.0-17.5) Hematocrit 42.7 % (39.0-53.0) Mean Corpuscular Volume 96 fL (79-100) Mean Corpuscular Hemoglobin 31 pg (25-35) Mean Corpuscular Hemoglobin Concent 32 g/dL (31-37) Red Cell Distribution Width 15.7 % (11.5-14.5) Platelet Count 409 x10^3/uL (140-400) Neutrophils (%) (Auto) 80 % (31-73) Lymphocytes (%) (Auto) 13 % (24-48) Monocytes (%) (Auto) 6 % (0-9) Eosinophils (%) (Auto) 0 % (0-3) Basophils (%) (Auto) 0 % (0-3) Neutrophils # (Auto) 5.4 x10^3/uL (1.8-7.7) Lymphocytes # (Auto) 0.9 x10^3/uL (1.0-4.8) Monocytes # (Auto) 0.4 x10^3/uL (0.0-1.1) Eosinophils # (Auto) 0.0 x10^3/uL (0.0-0.7) Basophils # (Auto) 0.0 x10^3/uL (0.0-0.2) Sodium Level 138 mmol/L (136-145) Potassium Level 3.9 mmol/L (3.5-5.1) Chloride Level 99 mmol/L (98-107) Carbon Dioxide Level 29 mmol/L (21-32) Anion Gap 10 (6-14) Blood Urea Nitrogen 18 mg/dL (8-26) Creatinine 1.6 mg/dL (0.7-1.3) Estimated GFR (Cockcroft-Gault) 51.7 BUN/Creatinine Ratio 11 (6-20) Glucose Level 116 mg/dL (70-99) Calcium Level 9.1 mg/dL (8.5-10.1) Magnesium Level 1.9 mg/dL (1.8-2.4) Total Bilirubin 0.2 mg/dL (0.2-1.0) Aspartate Amino Transf (AST/SGOT) 15 U/L (15-37) Alanine Aminotransferase (ALT/SGPT) 30 U/L (16-63) Alkaline Phosphatase 126 U/L (46-116) Creatine Kinase 52 U/L (39-308) Creatine Kinase MB (Mass) 2.1 ng/mL (0.0-3.6) Creatine Kinase MB Relative Index % (0-4) Troponin I High Sensitivity 49 ng/L (4-75) Total Protein 7.6 g/dL (6.4-8.2) Albumin 3.7 g/dL (3.4-5.0) Albumin/Globulin Ratio 0.9 (1.0-1.7) Lipase 76 U/L (73-393) Lactic Acid Level 0.7 mmol/L (0.4-2.0) Urine Collection Type Unknown Urine Color Yellow Urine Clarity Clear Urine pH 6.5 (<5.0-8.0) Urine Specific [place] 1.025 (1.000-1.030) Urine Protein 30 mg/dL (NEG-TRACE) Urine Glucose (UA) Negative mg/dL (NEG) Urine Ketones (Stick) 15 mg/dL (NEG) Urine Blood Negative (NEG) Urine Nitrite Negative (NEG) Urine Bilirubin Small (NEG) Urine Urobilinogen Dipstick 0.2 mg/dL (0.2 mg/dL) Urine Leukocyte Esterase Negative (NEG) Urine RBC 0 /HPF (0-2) Urine WBC 0 /HPF (0-4) Urine Squamous Epithelial Cells Occ /LPF Urine Bacteria 0 /HPF (0-FEW) Coronavirus (COVID-19)(PCR) Not detected (NOT DETECTD) Test 05/31/21 05:35 White Blood Count 5.2 x10^3/uL (4.0-11.0) Red Blood Count 3.68 x10^6/uL (4.30-5.70) Hemoglobin 11.6 g/dL (13.0-17.5) Hematocrit 35.2 % (39.0-53.0) Mean Corpuscular Volume 96 fL (79-100) Mean Corpuscular Hemoglobin 32 pg (25-35) Mean Corpuscular Hemoglobin Concent 33 g/dL (31-37) Red Cell Distribution Width 15.7 % (11.5-14.5) Platelet Count 321 x10^3/uL (140-400) Neutrophils (%) (Auto) 60 % (31-73) Lymphocytes (%) (Auto) 27 % (24-48) Monocytes (%) (Auto) 10 % (0-9) Eosinophils (%) (Auto) 3 % (0-3) Basophils (%) (Auto) 0 % (0-3) Neutrophils # (Auto) 3.1 x10^3/uL (1.8-7.7) Lymphocytes # (Auto) 1.4 x10^3/uL (1.0-4.8) Monocytes # (Auto) 0.5 x10^3/uL (0.0-1.1) Eosinophils # (Auto) 0.2 x10^3/uL (0.0-0.7) Basophils # (Auto) 0.0 x10^3/uL (0.0-0.2) Sodium Level 141 mmol/L (136-145) Potassium Level 4.0 mmol/L (3.5-5.1) Chloride Level 106 mmol/L (98-107) Carbon Dioxide Level 25 mmol/L (21-32) Anion Gap 10 (6-14) Blood Urea Nitrogen 12 mg/dL (8-26) Creatinine 1.3 mg/dL (0.7-1.3) Estimated GFR (Cockcroft-Gault) 65.7 Glucose Level 88 mg/dL (70-99) Calcium Level 8.0 mg/dL (8.5-10.1) Problem List Problems Medical Problems: (1) Small bowel obstruction Status: Acute Assessment/Plan advance diet would recommend continue PPI FU in clinic round, chart 15min Justicifation of Admission Dx: Justifications for Admission: Justification of Admission Dx: Yes Sepsis: Dehydration ANTHONY GARCIA MD 06/01/21 1246: SURGICAL PROGRESS NOTE Assessment/Plan Pt seen and examined. Agree with Ms. De Jesus's note Pt feels better, ganga diet, some pain with eating long standing issues with eating (BMI 22), c/w chronic ulcer disease and scarring abd soft, min TTP OK to work towards d/c home. Encouraged f/u in office to consider antrectomy if pt wishes to pursue. VIRGILIO DE JESUS APRN Jun 01, 2021 10:53 ANTHONY GARCIA MD Jun 01, 2021 12:46
[2021-06-01 11:00] VITALS: BP 126/81
--- NOTE | 2021-06-01 11:49 | PDOC ---
Date of Service: DATE: 06/01/21 TIME: 11:45 Objective: Objective: Reviewed other notes - mention of recent ventral hernia repair. Vital Signs: Vital Signs Date Time Temp Pulse Resp B/P (MAP) Pulse Ox O2 Delivery O2 Flow Rate FiO2 06/01/21 11:00 98.2 75 18 126/81 (96) 100 Room Air 98.2 Imaging: KUB 05/31 Impression: Interval progression of enteric contrast into the large bowel makes complete small bowel obstruction unlikely. There is also relative decrease in small bowel distention. These interval changes most likely represent ileus though partial small bowel obstruction is not completely excluded. PE: GEN: NAD - talking w/ hospital staff D/w surgery - improved, stooling - plans to advance diet A/P: SBO - resolving H/o PUD/surgery -- Improving. Diet per surgery. Continue PPI, await records. Justicifation of Admission Dx: Justifications for Admission: Justification of Admission Dx: Yes Sepsis: Dehydration SELENE CAREY Jun 01, 2021 11:49
--- NOTE | 2021-06-01 12:29 | PDOC ---
PROGRESS NOTES Date of Service: DATE: 06/01/21 TIME: 12:29 Subjective Subjective able to tolerate diet Objective Objective Vital Signs Date Time Temp Pulse Resp B/P (MAP) Pulse Ox O2 Delivery O2 Flow Rate FiO2 06/01/21 12:05 Room Air 06/01/21 11:00 98.2 75 18 126/81 (96) 100 98.2 Intake and Output 06/01/21 07:00 Intake Total 540 ml Output Total 1200 ml Balance -660 ml Intake Oral 540 ml Output Urine Total 1200 ml Physical Exam Abdomen: Normal bowel sounds, Soft, No tenderness General: Alert, Oriented X3, Cooperative HEENT: Atraumatic Lungs: Normal air movement MUSCULOSKELETAL: Osteoarthritic changes both hands Psych/Mental Status: Mental status NL, Mood NL Skin: No rashes, No breakdown Diagnosis Problem List Problems Medical Problems: (1) Small bowel obstruction Status: Acute Assessment Assessment Problems Medical Problems: (1) Small bowel obstruction Status: Acute FINAL IMPRESSION: 1. Abdominal pain. 2. Small bowel ileus versus partial bowel obstruction. 3. Recent history of perforated gastric ulcer, surgery done 6 months ago at [facility]. 4. Chronic pain syndrome. 5. History of disk surgeries with foot drop. 6. Hypertension. 7. Hyperlipidemia. 8. Chronic kidney disease between stage 2 and 3. DISPOSITION: abd pain improving labs good KUB improved Advence diet ? home tomorrow The patient was admitted to the hospital, hydrated with IV fluids. KUB for followup on the ileus, may be clear liquid diet. GI is consulted and see how he improves. Plan Plan of Care Problems Medical Problems: (1) Small bowel obstruction Status: Acute Comment Review of Relevant I have reviewed the following items sharyn (where applicable) has been applied. Medications Current Medications Atorvastatin Calcium (Lipitor) 40 mg QHS PO ; Start 06/01/21 at 21:00 Fentanyl Citrate (Fentanyl 2ml Vial) 50 mcg PRN Q3HRS PRN IVP PAIN; Start 05/31/21 at 16:00 Gabapentin (Neurontin) 400 mg TID PO Last administered on 06/01/21at 07:55; Start 05/31/21 at 14:00 Losartan Potassium (Cozaar) 50 mg DAILY PO ; Start 06/01/21 at 09:00; Status UNV Miscellaneous (Lidoderm Patch Removal) 1 ea QHS MC Last administered on 05/31/21at 21:00; Start 05/31/21 at 21:00 Vitals/I & O Vital Sign - Last 24 Hours 05/31/21 05/31/21 05/31/21 05/31/21 15:00 15:15 15:53 19:15 Temp 97.8 98.0 97.8 98.0 Pulse 82 78 Resp 18 18 B/P (MAP) 151/87 (108) 142/89 (106) Pulse Ox 100 100 O2 Delivery Room Air Room Air Room Air Room Air 05/31/21 05/31/21 05/31/21 05/31/21 19:16 19:35 19:46 23:11 Temp 98.3 98.3 Pulse 74 Resp 20 20 18 B/P (MAP) 155/91 (112) Pulse Ox 97 O2 Delivery Room Air Room Air Room Air Room Air 05/31/21 05/31/21 06/01/21 06/01/21 23:16 23:46 03:16 03:18 Temp 97.9 97.9 Pulse 79 Resp 20 20 18 20 B/P (MAP) 152/98 (116) Pulse Ox 99 O2 Delivery Room Air Room Air Room Air Room Air 06/01/21 06/01/21 06/01/21 06/01/21 03:48 07:00 07:55 07:58 Temp 97.9 97.9 Pulse 73 79 Resp 20 18 B/P (MAP) 155/89 (111) 152/98 Pulse Ox 98 O2 Delivery Room Air Room Air Room Air 06/01/21 06/01/21 06/01/21 06/01/21 08:00 08:27 11:00 12:05 Temp 98.2 98.2 Pulse 75 Resp 18 B/P (MAP) 126/81 (96) Pulse Ox 100 O2 Delivery Room Air Room Air Room Air Room Air Intake and Output 05/31/21 05/31/21 06/01/21 15:00 23:00 07:00 Intake Total 300 ml 240 ml Output Total 900 ml 300 ml Balance -600 ml -60 ml Justifications for Admission Other Justification Nutrition Consultation Dietary Evaluation: Recommendations by RD: Dietary education by RD Comments: REC advance to ADA/ Cardiac per PMH when able Expected Outcomes/Goals: diet adv/ tolerance Interpretation of weight loss: >7.5% in 3 months Malnutrition Findings: Food and Nutrition Intake (Sev: <50% est energy req 5days Weight Status: Underweight MATT OSORIO MD Jun 01, 2021 12:29
[2021-06-01] MEDS: fentaNYL PF VIAL 100 MCG/2 ML VIAL IVP PRN ×3 (13:15→21:01)
[2021-06-01 15:00] VITALS: BP 98/53
[2021-06-01 19:00] VITALS: BP 124/73
[2021-06-01] MEDS ORDERED: ATORVASTATIN CALCIUM 40 MG TABLET. PO SCH (21:00)
[2021-06-01] MEDS: PATCH REMOVAL. MC SCH (21:00)
[2021-06-01 23:00] VITALS: BP 136/84
[2021-06-02] MEDS: fentaNYL PF VIAL 100 MCG/2 ML VIAL IVP PRN ×5 (00:10→13:05)
[2021-06-02] MEDS: oxyCODONE IR 5 MG TABLET PO PRN ×4 (00:32→13:45)
[2021-06-02 02:45] VITALS: BP 144/85
[2021-06-02 07:00] VITALS: BP 115/70
[2021-06-02] MEDS: PANTOPRAZOLE 40 MG TABLET.DR. PO SCH (08:43)
[2021-06-02] MEDS: GABAPENTIN 400 MG CAPSULE. PO SCH ×2 (08:43→15:15)
[2021-06-02] MEDS: LOSARTAN POTASSIUM 50 MG TABLET. PO SCH (08:43)
[2021-06-02] MEDS: LIDOCAINE (700MG/PATCH) PATCH. TD SCH (08:45)
--- NOTE | 2021-06-02 08:57 | PDOC ---
PROGRESS NOTES Date of Service: DATE: 06/02/21 TIME: 08:56 Subjective Subjective tolerating diet well. Objective Objective Vital Signs Date Time Temp Pulse Resp B/P (MAP) Pulse Ox O2 Delivery O2 Flow Rate FiO2 06/02/21 08:52 Room Air 06/02/21 08:43 69 115/70 06/02/21 07:00 97.6 16 98 97.6 Intake and Output 06/02/21 07:00 Intake Total 560 ml Output Total 900 ml Balance -340 ml Intake Oral 560 ml Output Urine Total 900 ml # Voids 2 Physical Exam Abdomen: Normal bowel sounds, Soft, No tenderness General: Alert, Oriented X3, Cooperative HEENT: Atraumatic Lungs: Normal air movement MUSCULOSKELETAL: Osteoarthritic changes both hands Psych/Mental Status: Mental status NL, Mood NL Skin: No rashes, No breakdown Diagnosis Problem List Problems Medical Problems: (1) Small bowel obstruction Status: Acute Assessment Assessment Problems Medical Problems: (1) Small bowel obstruction Status: Acute FINAL IMPRESSION: 1. Abdominal pain. 2. Small bowel ileus versus partial bowel obstruction. 3. Recent history of perforated gastric ulcer, surgery done 6 months ago at [facility]. 4. Chronic pain syndrome. 5. History of disk surgeries with foot drop. 6. Hypertension. 7. Hyperlipidemia. 8. Chronic kidney disease between stage 2 and 3. DISPOSITION: spoke with GI ,out pt EGD abd pain improving labs good KUB improved Tolerating diet well on regular diet ? home today Plan Plan of Care Problems Medical Problems: (1) Small bowel obstruction Status: Acute Comment Review of Relevant I have reviewed the following items sharyn (where applicable) has been applied. Medications Current Medications Atorvastatin Calcium (Lipitor) 40 mg QHS PO Last administered on 06/01/21at 21:01; Start 06/01/21 at 21:00 Losartan Potassium (Cozaar) 50 mg DAILY PO ; Start 06/01/21 at 09:00; Status UNV Vitals/I & O Vital Sign - Last 24 Hours 06/01/21 06/01/21 06/01/21 06/01/21 11:00 12:05 12:35 13:15 Temp 98.2 98.2 Pulse 75 Resp 18 B/P (MAP) 126/81 (96) Pulse Ox 100 O2 Delivery Room Air Room Air Room Air Room Air 2/2406/01/21 06/01/21 06/01/21 13:45 15:00 16:18 16:48 Temp 98.3 98.3 Pulse 72 Resp 18 B/P (MAP) 98/53 (68) Pulse Ox 97 O2 Delivery Room Air Room Air Room Air Room Air 06/01/21 06/01/21 06/01/21 06/01/21 17:35 18:05 19:00 19:41 Temp 98.2 98.2 Pulse 68 Resp 18 B/P (MAP) 124/73 (90) Pulse Ox 100 O2 Delivery Room Air Room Air Room Air Room Air 06/01/21 06/01/21 06/01/21 06/01/21 20:20 20:50 21:01 21:31 Resp 20 20 20 20 O2 Delivery Room Air Room Air Room Air Room Air 06/01/21 06/02/21 06/02/21 06/02/21 23:00 00:10 00:32 00:40 Temp 98.1 98.1 Pulse 80 Resp 16 20 20 20 B/P (MAP) 136/84 (101) Pulse Ox 98 O2 Delivery Room Air Room Air Room Air Room Air 06/02/21 06/02/21 06/02/21 06/02/21 01:02 02:45 03:17 03:47 Temp 98.1 98.1 Pulse 75 Resp 20 16 20 20 B/P (MAP) 144/85 (104) Pulse Ox 97 O2 Delivery Room Air Room Air Room Air Room Air 06/02/21 06/02/21 06/02/21 06/02/21 04:33 05:03 06:20 06:50 Resp 20 20 20 O2 Delivery Room Air Room Air Room Air Room Air 06/02/21 06/02/21 06/02/21 07:00 08:43 08:52 Temp 97.6 97.6 Pulse 69 69 Resp 16 B/P (MAP) 115/70 (85) 115/70 Pulse Ox 98 O2 Delivery Room Air Room Air Intake and Output 06/01/21 06/01/21 06/02/21 15:00 23:00 07:00 Intake Total 200 ml 360 ml Output Total 900 ml Balance 200 ml -540 ml Justifications for Admission Other Justification Nutrition Consultation Dietary Evaluation: Recommendations by RD: Dietary education by RD Comments: REC advance to ADA/ Cardiac per PMH when able Expected Outcomes/Goals: diet adv/ tolerance Interpretation of weight loss: >7.5% in 3 months Malnutrition Findings: Food and Nutrition Intake (Sev: <50% est energy req 5days Weight Status: Underweight MATT OSORIO MD Jun 02, 2021 08:57
--- NOTE | 2021-06-02 10:01 | NUR ---
SW following. Discussed with RN, discharge order for home with self care. RN advised no SW needs.
--- NOTE | 2021-06-02 10:33 | PDOC ---
Date of Service: DATE: 06/02/21 TIME: 10:29 Subjective: Subjective: Tolerating diet - has a little upper abd discomfort w/ eating that resolved after ~20 min. Stooled day before yesterday, passing lots of gas though. Objective: Objective: D/w Dr. Johnson - possible DC today or tomorrow, would like outpt EGD. Vital Signs: Vital Signs Date Time Temp Pulse Resp B/P (MAP) Pulse Ox O2 Delivery O2 Flow Rate FiO2 06/02/21 09:55 Room Air 06/02/21 08:43 69 115/70 06/02/21 07:00 97.6 16 98 97.6 PE: GEN: NAD LUNGS: CTAB HEART: RRR ABD: S/NT/ND, quiet BS NEURO/PSYCH: A & O 3 A/P: SBO - resolved H/o perf DU s/p Rojelio patch @ [facility] (had EGD there in Mar 2021 post op) -- DC per primary on PPI (forever), will review possible outpt EGD w/ Dr. Burnett. Justicifation of Admission Dx: Justifications for Admission: Justification of Admission Dx: Yes Sepsis: Dehydration SELENE CAREY Jun 02, 2021 10:33
[2021-06-02 11:00] VITALS: BP 121/72
[2021-06-02 15:00] VITALS: BP 137/71
--- NOTE | 2021-06-02 17:23 | NUR ---
Pt discharged to home with family. take out by wheelchair
== END 2021-06-02 16:30 | disposition home or self-care (01) | DRG 388 ==
LOC: ER 10:20 → 4 NORTH 13:34
PROVIDERS: ADMIT Internal Medicine; ATTEND Internal Medicine
DX: K56.609 Unspecified intestinal obstruction, unspecified as to partial versus complete obstruction (principal); N17.0 Acute kidney failure with tubular necrosis; E03.9 Hypothyroidism, unspecified; E11.22 Type 2 diabetes mellitus with diabetic chronic kidney disease; E78.5 Hyperlipidemia, unspecified; E86.0 Dehydration; G89.4 Chronic pain syndrome; I12.9 Hypertensive chronic kidney disease with stage 1 through stage 4 chronic kidney disease, or unspecified chronic kidney disease; M21.379 Foot drop, unspecified foot; N18.2 Chronic kidney disease, stage 2 (mild); Z79.1 Long term (current) use of non-steroidal anti-inflammatories (NSAID); Z79.891 Long term (current) use of opiate analgesic; K21.00 Gastro-esophageal reflux disease with esophagitis, without bleeding; M19.90 Unspecified osteoarthritis, unspecified site
CPT/HCPCS: 36415; 74018; 74177; 80048; 80053; 81001; 82553; 83605; 83690; 83735; 84484; 85025; 93005; 96374; 96375; J2405; J3010; J3490; J7030; Q9966; Q9967; U0003; 99285-25; G0378

== ENCOUNTER → 2021-07-03 | Day surgery (SDC) | payer MEDICARE ==
[~2021-07-03] MED LIST changes: +IV RINGERS,LACTATED 1000ML 1,000 ML IV SCH; +LIDOCAINE 2% PF 5 ML VIAL. ONE; +OXYC10TA46 PO; +PROPOFOL 10 MG/ML (20ML) VIAL. IV ONE
[2021-07-03 14:50] VITALS: BP 136/76
--- NOTE | 2021-07-03 14:53 | PDOC1 ---
History and Physical Date of Admission Date of Admission DATE: 07/03/21 TIME: 14:49 Identification/Chief Complaint Chief Complaint Abdominal pain Source Source: Chart review, Patient History of Present Illness History of Present Illness 70 y/o with abdominal pain. H/o PUD with perforated ulcer in the recent past, repaired at surgery. PCP has requested f/u EGD. Has long h/o ulcers. 2 prior colonoscopies negative. Past Medical History Cardiovascular: HTN, Hyperlipidemia Pulmonary: No pertinent hx CENTRAL NERVOUS SYSTEM: Other GI: GERD Heme/Onc: Anemia NOS Hepatobiliary: No pertinent hx Psych: No pertinent hx Musculoskeletal: low back pain, Osteoarthritis Infectious disease: No pertinent hx Renal/: Chronic renal insuff Endocrine: Hypothyroidism Past Surgical History Past Surgical History: Hernia Repair, Other (repair perforated ulcer) Family History Family History: Cancer Social History Smoke: No ALCOHOL: occassional Drugs: None Current Medications Current Medications Current Medications Propofol (Diprivan) 200 mg STK-MED ONCE IV ; Start 07/03/21 at 13:28; Stop 07/03/21 at 13:28; Status DC Lidocaine HCl (Lidocaine Pf 2% Vial) 5 ml STK-MED ONCE .ROUTE ; Start 07/03/21 at 13:28; Stop 07/03/21 at 13:28; Status DC Active Scripts Active Reported Oxycontin (Oxycodone HCl) 10 Mg Tab.er.12h 10 Mg PO Q4HRS Atorvastatin Calcium 40 Mg Tablet 40 Mg PO DAILY Sucralfate 1 Gm Tablet 1 Gm PO BID Lidocaine 1 Each Adh..patch 1 Patch TD DAILY Pantoprazole Sodium 40 Mg Tablet.dr 40 Mg PO DAILY Gabapentin (Gabapentin) 400 Mg Capsule 400 Mg PO TID Losartan Potassium 50 Mg Tablet 50 Mg PO DAILY One Daily (Multivitamin) 1 Each Tablet 1 Each PO DAILY last dose this am next dose tomorrow am Allergies Allergies: Coded Allergies: No Known Drug Allergies (Unverified , 02/24/20) ROS Review of System Otherwise negative. Physical Exam General: Alert, Oriented X3, Cooperative, No acute distress HEENT: Atraumatic Lungs: Clear to auscultation Heart: S1S2, RRR, no gallops, no murmurs Abdomen: Normal bowel sounds, Soft, No hepatosplenomegaly, No masses, Other (mild epigastric tenderness) Rectal Exam: not examined Extremities: No clubbing, No edema Skin: No significant lesion Neuro: Normal speech, Strength at 5/5 X4 ext, Normal tone, Sensation intact, Cranial nerves 3-12 NL, Reflexes 2+ Psych/Mental Status: Mental status NL, Mood NL Vitals Vitals See nursing notes. VTE Prophylaxis Ordered VTE Prophylaxis Devices: No VTE Pharmacological Prophylaxi: No Assessment/Plan Assessment/Plan IMP: Abdominal pain/history of PUD PLAN: EGD. DESIRAE LÓPEZ MD Jul 03, 2021 14:53
--- NOTE | 2021-07-03 15:09 | PDOC4 ---
PROCEDURE Procedure EGD Indication: abdominal pain/history of ulcers. Meds: per anesthesia Findings: E--Grade A reflux at 40cm. G--Normal D--angulated and tortuous at junction of bulb and second portion but able to negotiate with scope and lumen adequate to eat through. Glendy. well. IMP: Reflux. Scarring in duodenum from old ulcer disease; no active ulcer present. REC: Continue PPI . Can f/u with me prn. DESIRAE LÓPEZ MD Jul 03, 2021 15:09
[2021-07-03 15:22] VITALS: BP 139/79
== END | disposition home or self-care (01) ==
LOC: ENDOS 14:26
PROVIDERS: ATTEND Internal Medicine Gastroenterology
DX: R10.13 Epigastric pain (principal); K21.00 Gastro-esophageal reflux disease with esophagitis, without bleeding; K31.89 Other diseases of stomach and duodenum; E78.00 Pure hypercholesterolemia, unspecified; E03.9 Hypothyroidism, unspecified; I12.9 Hypertensive chronic kidney disease with stage 1 through stage 4 chronic kidney disease, or unspecified chronic kidney disease; E11.22 Type 2 diabetes mellitus with diabetic chronic kidney disease; N18.9 Chronic kidney disease, unspecified; M19.90 Unspecified osteoarthritis, unspecified site; Z79.899 Other long term (current) drug therapy; Z98.890 Other specified postprocedural states; Z72.89 Other problems related to lifestyle
CPT/HCPCS: 43235; J2704

== ENCOUNTER 2021-07-19 05:19 | Inpatient (IN) | payer MEDICARE ==
[~2021-07-19] VITALS: Ht 167.6 cm; Wt 62.7 kg
[~2021-07-19 05:19] MED LIST changes: -IV RINGERS,LACTATED 1000ML 1,000 ML IV SCH; -LIDOCAINE 2% PF 5 ML VIAL. ONE; -PROPOFOL 10 MG/ML (20ML) VIAL. IV ONE
[2021-07-19 05:51] LABS: BASO % 0 % (0-3); EOS % 0 % (0-3); HEMATOCRIT 42.4 % (39.0-53.0); HEMOGLOBIN 14.7 g/dL (13.0-17.5); LYMPH # 0.9 x10^3/uL (1.0-4.8); LYMPH % 7 % (24-48); MEAN CORPUSCULAR HEMOGLOBIN 34 pg (25-35); MEAN CORPUSCULAR HGB CONC 35 g/dL (31-37); MEAN CORPUSCULAR VOLUME 97 fL (79-100); MONO # 0.8 x10^3/uL (0.0-1.1); MONO % 6 % (0-9); NEUT # 10.8 x10^3/uL (1.8-7.7); NEUT % 86 % (31-73); PLATELET COUNT 369 x10^3/uL (140-400); RED BLOOD COUNT 4.38 x10^6/uL (4.30-5.70); RED CELL DISTRIBUTION WIDTH 14.9 % (11.5-14.5); WHITE BLOOD COUNT 12.5 x10^3/uL (4.0-11.0)
[2021-07-19] MEDS ORDERED: ASPIRIN 325 MG TABLET PO ONE (06:00)
[2021-07-19] MEDS ORDERED: ONDANSETRON PF 4 MG/2 ML VIAL. IVP ONE (06:00)
[2021-07-19] MEDS ORDERED: MORPHINE SULFATE 4 MG/ML INJ. IVP ONE (06:00)
[2021-07-19] MEDS ORDERED: PANTOPRAZOLE IV PUSH 40 MG VIAL. IVP ONE (06:00)
[2021-07-19] MEDS ORDERED: IV NORMAL SALINE 1000ML BAG 1,000 ML IV ONE (06:00)
[2021-07-19 06:02] LABS: PROTHROMBIN TIME PATIENT 12.7 SEC (11.7-14.0)
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
--- NOTE | 2021-07-19 06:19 | RAD ---
EXAM: AP View of the chest DATE: 07/19/2021 5:39 AM INDICATION: Reason: chest pain / Spl. Instructions: / History: COMPARISON: 12/27/2020 FINDINGS: The heart is not enlarged. Mediastinal and hilar contours are normal. No focal parenchymal airspace opacity. No pleural effusion or pneumothorax. IMPRESSION: 1. No radiographic evidence for acute cardiopulmonary process. Electronically signed by: James Saini MD (07/19/2021 6:16 AM) LAILA
[2021-07-19 06:22] LABS: ALBUMIN 3.7 g/dL (3.4-5.0); ALBUMIN/GLOBULIN RATIO 1.1 (1.0-1.7); CALCIUM 10.1 mg/dL (8.5-10.1); CREATININE 1.4 mg/dL (0.7-1.3); GFR 60.3; POTASSIUM 4.6 mmol/L (3.5-5.1); TOTAL BILIRUBIN 0.6 mg/dL (0.2-1.0)
[2021-07-19] MEDS ORDERED: CONTRAST GIVEN. MC PRN (06:30)
[2021-07-19] MEDS ORDERED: IOHEXOL 350 MG/ML 100 ML VIAL. IV ONE (07:00)
[2021-07-19] MEDS ORDERED: HYDROmorphone 2 MG/ML INJ. IVP ONE ×2 (07:30→08:45)
--- NOTE | 2021-07-19 07:54 | RAD ---
INDICATION: Reason: chest pain, abdominal pain, copious vomiting;OMNI 350,100ML / Spl. Instructions: / History: COMPARISON: CT abdomen May 2021 TECHNIQUE: Axial CT images were obtained through the chest, abdomen and pelvis with intravenous contrast. Three- dimensional images processed per angiogram protocol One or more of the following individualized dose reduction techniques were utilized for this examinat ion: 1. Automated exposure control; 2. Adjustment of the mA and/or kV according to patient size; 3 . Use of iterative reconstruction technique. FINDINGS: Sub-4 mm left lung base nodule. Suspected prominent lymph node in the subcarinal region measuring 13 mm short axis. Degenerative changes of spine. Atherosclerotic disease is seen. Motion obscures portions of the thoracic aorta but no aneurysm or di ssection in visualized portion. No embolus in the main, right main or left main pulmonary artery. Vascular: Atherosclerotic disease throughout vasculature. Hepatobiliary: No intrahepatic biliary duct dilation. Pancreas: Pancreatic duct is dilated measuring up to about 6 mm. Spleen: Spleen unremarkable. Renal/Bladder: Distention of bilateral extrarenal pelvis. Urinary bladder is partially distended. Gastrointestinal: Within the inguinal canal there is soft tissue density. Could be from causes such a s retraction of the testicles. There are some dilated loops of small bowel identified. For example on e of these measures up to about 42 mm. Appendix is not well evaluated. Degenerative changes of the spine with multilevel central canal and neural foraminal stenosis. IMPRESSION: * There are some dilated loops of small bowel identified. Would correlate with symptoms to ensure t his is not from a pathologic cause such as partial obstruction. * Atherosclerotic disease without aortic dissection. * Redemonstration of dilatation of pancreatic duct. * The appendix is not well evaluated secondary to unopacified loops of bowel within the area. There is a tubular structure seen in the retrocecal region measuring up to 14 mm. It is difficult to tell i f this is secondary to a dilated appendix or a loop of small bowel within the region and would correl ate with symptoms. If there is clinical concern for appendicitis follow-up CT could be obtained with oral contrast to further evaluate. Electronically signed by: Carlton Parra MD (07/19/2021 7:52 AM) [id number]
[2021-07-19 07:58] LABS: BACTERIA,URINE 0 /HPF (0-FEW); RBC,URINE 0 /HPF (0-2); WBC,URINE 0 /HPF (0-4)
[2021-07-19] MEDS ORDERED: MORPHINE SULFATE 2 MG/ML INJ. IVP PRN (08:15)
--- NOTE | 2021-07-19 08:31 | EKG ---
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
[2021-07-19 09:45] VITALS: BP 154/96
--- NOTE | 2021-07-19 09:52 | RAD ---
XR ABDOMEN 1V History: NG tube Comparison: CTA chest abdomen and pelvis 07/19/2021 Technique: AP portable supine radiograph of the abdomen. Findings: Tubes and lines: Nasogastric tube proximal side-port projects in the distal thoracic esophagus with t ip projecting over the expected region of the stomach. Bowel gas pattern: Multiple prominent gas-filled loops of bowel project throughout the abdomen. Free air: No supine evidence. Abnormal calcifications: None. Bones: Degenerative changes in the lumbar spine. No acute findings. Other: Excretory nephrograms are present without evidence of hydronephrosis. Embolization coils in th e right lower quadrant. Electronic device artifact right pelvis. Impression: 1. Nasogastric tube proximal side-port projects in the region of the distal esophagus. Recommend adv ancement 10 cm to ensure entirely intragastric. 2. Multiple gas-filled loops of bowel throughout the abdomen are nonspecific, cannot exclude early o r partial obstruction. Electronically signed by: Neftali Gudino MD (07/19/2021 9:49 AM) [id number]
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
--- NOTE | 2021-07-19 11:46 | RAD ---
XR ABDOMEN 1V History: Verify NG placement. Comparison: 07/19/2021 Technique: AP portable supine radiograph the abdomen. Findings: Devices: Interval advancement of nasogastric tube now coiling within the left upper quadrant in the e xpected region of the stomach. Bowel gas pattern: Prominent gas-dilated loop of small bowel in the left abdomen. Free air: No supine evidence. Abnormal calcifications: None. Bones: Multilevel degenerative changes of the spine with flowing marginal osteophytes. Other: Right pelvic embolization coils redemonstrated. Lung bases are clear. Impression: 1. Appropriately positioned nasogastric tube. 2. Gas distended small bowel loop in the left mid abdomen may represent ileus or obstruction. Electronically signed by: Neftali Gudino MD (07/19/2021 11:43 AM) [id number]
--- NOTE | 2021-07-19 11:50 | NUR ---
Reassessments cleared on EMAR that were not completed while in ED.
[2021-07-19] MEDS: ONDANSETRON PF 4 MG/2 ML VIAL. IVP PRN ×2 (13:05→23:05)
[2021-07-19] MEDS: HYDROmorphone 2 MG/ML INJ. IVP PRN ×4 (13:07→23:04)
[2021-07-19] MEDS: PHENOL ORAL SPRAY 177ML BOTTLE. PO PRN ×2 (14:26→22:14)
[2021-07-19] MEDS: POTASSIUM CL 20MEQ D5-0.9%NACL 1,000 ML IV SCH ×2 (14:26→22:14)
[2021-07-19 14:56] VITALS: BP 167/94
[2021-07-19] MEDS: PANTOPRAZOLE IV PUSH 40 MG VIAL. IVP SCH (17:08)
--- NOTE | 2021-07-19 18:39 | PDOC ---
Provider Note Date of Service: DATE: 07/19/21 TIME: 18:38 Provider Note Pt seen .H&P dictated.#[id number]. Justifications for Admission Other Justification MATT OSORIO MD Jul 19, 2021 18:39
[2021-07-19 19:30] VITALS: BP 177/90
--- NOTE | 2021-07-19 20:26 | HP ---
DATE OF SERVICE: 07/19/2021 ADMIT DATE: 07/19/2021 PATIENT LOCATION: [id number]. REASON FOR ADMISSION TO THE HOSPITAL: Abdominal pain, small bowel partial obstruction. HISTORY OF PRESENT ILLNESS: The patient is a 70-year-old male. The patient was admitted to the hospital for abdominal pain, vomited overnight, had a lot of pain and came to the Emergency Room, had a CT scan, which shows small bowel partial obstruction, was admitted to the hospital. The patient apparently had an EGD on 07/03, in which he had an ulcer in the past, shows a normal stomach scarring. PAST MEDICAL HISTORY: Has a history of hypertension, diabetes, chronic kidney disease, hypothyroidism, foot drop. PAST SURGICAL HISTORY: Back surgery, hernia repair, and he also had a perforated gastric ulcer, partial resection done of the stomach. FAMILY HISTORY: Cancer was present. SOCIAL HISTORY: Denies smoking or alcohol. The patient is on chronic pain medications. ALLERGIES: No known allergies. REVIEW OF SYMPTOMS: Complains of abdominal pain, nausea, and vomiting. MEDICATIONS AT HOME: The patient is on atorvastatin 40 mg daily, gabapentin 300 mg 3 times daily, lidocaine patch daily, losartan 50 mg daily, OxyContin 10 mg every 4 hours, pantoprazole 40 mg daily, Carafate 1 gram twice a day, and multivitamin daily. PHYSICAL EXAMINATION: GENERAL: Elderly male, looks older than his age, has NG tube, not in any discomfort. VITAL SIGNS: Temperature 98, pulse 101, respirations 18, blood pressure 167/94, 98 on room air, blood pressure at the time of admission was 200/113. HEENT: Head is atraumatic. Pupils equal. Has NG tube to intermittent suction. NECK: Supple. Thyroid not enlarged. JVD not elevated. CHEST: Symmetrical. CARDIOVASCULAR: S1, S2. LUNGS: Clear to auscultation. No wheezing. ABDOMEN: Soft. Scar of previous abdominal surgery in the midline, slightly tender in the mid abdomen. No rebound. EXTERNAL GENITALIA: No M[place]. RECTUM: Deferred. EXTREMITIES: The patient has an ankle surgery fusion, had back surgeries x2. NEUROLOGIC: No focal deficits noted. DIAGNOSTIC DATA: Shows a white count 12.5, hemoglobin 14.7, platelets 369. Sodium 137, potassium 4.6, chloride 100, bicarbonate 25, BUN 16, creatinine 1.4. LFTs normal. BNP 1142. Urine negative. Had a chest x-ray, no acute process. CT scan of the abdomen and pelvis shows partial small-bowel obstruction. FINAL IMPRESSION: 1. Abdominal pain secondary to partial small-bowel obstruction. 2. History of gastric perforation last year, had surgery done, partial resection. 3. History of gastric ulcer, last EGD a couple of weeks ago. 4. Heel ulceration. 5. Chronic kidney disease. 6. Chronic hypothyroidism. 7. Foot drop secondary to previous back surgeries. PLAN: At this time, was admit to hospital, hydrate with IV fluids, NG tube to intermittent suction. GI is consulted. DVT prophylaxis, IV fluids and see how he improves in the next 24-[address]: Trinh TID: [id number]
[2021-07-19 23:28] VITALS: BP 138/87
[2021-07-20] VITALS (8 sets, daily range): BP systolic 139–209; BP diastolic 78–102
[2021-07-20] MEDS: PHENOL ORAL SPRAY 177ML BOTTLE. PO PRN ×6 (00:42→22:33)
[2021-07-20] MEDS: HYDROmorphone 2 MG/ML INJ. IVP PRN ×8 (02:06→22:30)
[2021-07-20] MEDS: PANTOPRAZOLE IV PUSH 40 MG VIAL. IVP SCH ×2 (08:14→17:23)
[2021-07-20] MEDS: POTASSIUM CL 20MEQ D5-0.9%NACL 1,000 ML IV SCH ×3 (08:21→21:04)
--- NOTE | 2021-07-20 09:32 | PDOC ---
PROGRESS NOTES Date of Service: DATE: 07/20/21 TIME: 09:29 Subjective Subjective still has lot of pain Objective Objective Vital Signs Date Time Temp Pulse Resp B/P (MAP) Pulse Ox O2 Delivery O2 Flow Rate FiO2 07/20/21 08:14 Room Air 07/20/21 08:11 99.1 83 18 170/100 (123) 98 99.1 Intake and Output 07/20/21 07:00 Intake Total 1000 ml Output Total 1200 ml Balance -200 ml Intake Oral 0 ml IV Total 1000 ml Output Urine Total 900 ml Gastric Drainage Total 300 ml Physical Exam Abdomen: Soft Heart: Regular rate, Normal S1, Normal S2 Extremities: No clubbing General: Alert Lungs: Clear to auscultation MUSCULOSKELETAL: Osteoarthritic changes both hands Neck: Supple Neuro: Normal speech Psych/Mental Status: Mental status NL COMMENT NGT to suction Diagnosis Problem List Problems Medical Problems: (1) Acute epigastric pain Status: Acute (2) Other chest pain Status: Acute (3) SBO (small bowel obstruction) Status: Acute Assessment Assessment Problems Medical Problems: (1) Acute epigastric pain Status: Acute (2) Other chest pain Status: Acute (3) SBO (small bowel obstruction) Status: Acute FINAL IMPRESSION: 1. Abdominal pain secondary to partial small-bowel obstruction. 2. History of gastric perforation last year, had surgery done, partial gastric resection. 3. History of gastric ulcer, last EGD a couple of weeks ago. 4. chronic pain syndrome on narcotic pain meds 5. Chronic kidney disease. 6. Chronic hypothyroidism. 7. Foot drop secondary to previous back surgeries. PLAN: NGT to suction iv fluids GI consult KUB. labs pending. At this time, was admit to hospital, hydrate with IV fluids, NG tube to intermittent suction. GI is consulted. DVT prophylaxis, IV fluids and see how he improves in the next 24-48 hours. Plan Plan of Care Problems Medical Problems: (1) Acute epigastric pain Status: Acute (2) Other chest pain Status: Acute (3) SBO (small bowel obstruction) Status: Acute Comment Review of Relevant I have reviewed the following items sharyn (where applicable) has been applied. Medications Current Medications Hydromorphone HCl (Dilaudid) 1 mg PRN Q4HRS PRN IVP PAIN Last administered on 07/19/21at 17:08; Start 07/19/21 at 12:30; Stop 07/19/21 at 18:32; Status DC Hydromorphone HCl (Dilaudid) 1 mg Q3HRS PRN IVP PAIN Last administered on 07/20/21at 08:14; Start 07/19/21 at 18:30 Pantoprazole Sodium (PROTONIX VIAL for IV PUSH) 40 mg BIDAC IVP Last administered on 07/20/21at 08:14; Start 07/19/21 at 16:30 Phenol (Chloraseptic) 1 spray PRN Q2HR PRN PO SORE THROAT Last administered on 07/20/21at 08:21; Start 07/19/21 at 13:15 Potassium Chloride/Dextrose/ Sod Cl 1,000 ml @ 125 mls/hr Q8H IV Last administered on 07/20/21at 08:21; Start 07/19/21 at 14:00 Vitals/I & O Vital Sign - Last 24 Hours 07/19/21 07/19/21 07/19/21 07/19/21 09:45 10:54 11:24 13:07 Temp 98.4 98.4 Pulse 90 Resp 20 B/P (MAP) 154/96 (115) Pulse Ox 98 O2 Delivery Room Air Room Air Room Air Room Air 07/19/21 07/19/21 07/19/21 07/19/21 13:39 13:47 14:56 17:08 Temp 98.7 98.7 Pulse 101 Resp 18 B/P (MAP) 167/94 (118) Pulse Ox 98 O2 Delivery Room Air Room Air Room Air Room Air 07/19/21 07/19/21 07/19/21 07/19/21 17:38 19:30 20:00 20:05 Temp 98.2 98.2 Pulse 100 Resp 20 20 B/P (MAP) 177/90 (119) Pulse Ox 98 98 O2 Delivery Room Air Room Air Room Air Room Air 07/19/21 07/19/21 07/19/21 07/20/21 20:35 23:04 23:28 02:06 Temp 98.0 98.0 Pulse 79 Resp 20 20 18 20 B/P (MAP) 138/87 (104) Pulse Ox 92 98 97 97 O2 Delivery Room Air Room Air Room Air Room Air 07/20/21 07/20/21 07/20/21 07/20/21 02:36 03:19 05:13 05:43 Temp 98.5 98.5 Pulse 75 Resp 20 18 20 20 B/P (MAP) 139/80 (99) Pulse Ox 92 92 O2 Delivery Room Air Room Air Room Air Room Air 07/20/21 07/20/21 07/20/21 07/20/21 07:00 08:00 08:11 08:14 Temp 99.1 99.1 99.1 99.1 Pulse 83 83 Resp 18 18 B/P (MAP) 170/100 (123) 170/100 (123) Pulse Ox 98 98 O2 Delivery Room Air Room Air Room Air Room Air Intake and Output 07/19/21 07/19/21 07/20/21 15:00 23:00 07:00 Intake Total 1000 ml 0 ml 0 ml Output Total 300 ml 900 ml Balance 700 ml 0 ml -900 ml Justifications for Admission Other Justification MATT OSORIO MD Jul 20, 2021 09:32
[2021-07-20 09:39] LABS: BASO % 0 % (0-3); EOS % 0 % (0-3); HEMOGLOBIN 12.9 g/dL (13.0-17.5); LYMPH # 1.1 x10^3/uL (1.0-4.8); LYMPH % 13 % (24-48); MEAN CORPUSCULAR HEMOGLOBIN 32 pg (25-35); MEAN CORPUSCULAR HGB CONC 32 g/dL (31-37); MEAN CORPUSCULAR VOLUME 98 fL (79-100); MONO % 12 % (0-9); NEUT # 6.2 x10^3/uL (1.8-7.7); NEUT % 74 % (31-73); PLATELET COUNT 336 x10^3/uL (140-400); RED BLOOD COUNT 4.08 x10^6/uL (4.30-5.70); RED CELL DISTRIBUTION WIDTH 15.3 % (11.5-14.5); WHITE BLOOD COUNT 8.4 x10^3/uL (4.0-11.0)
--- NOTE | 2021-07-20 09:56 | RAD ---
XR ABDOMEN 1V History: Small bowel obstruction follow-up Comparison: 07/19/2021 Technique: Portable supine radiograph the abdomen Findings: Devices: Partially visualized gastric tube coils in the left upper quadrant in the expected region of the stomach. Bowel gas pattern: Interval decreased conspicuity of gas-filled small bowel loops. There is a mild co lonic stool burden. Free air: No supine evidence. Abnormal calcifications: Multiple calcified nodules in the right retroperitoneum may represent calcif ied lymph nodes or phleboliths. No pelvic phleboliths. Bones: Degenerative changes of the spine. Other: Right inferior epigastric embolization coils. Impression: 1. Interval improvement of gaseous distention of small bowel loops. Electronically signed by: Neftali Gudino MD (07/20/2021 9:54 AM) [id number]
[2021-07-20 09:57] LABS: ALBUMIN 2.9 g/dL (3.4-5.0); CALCIUM 8.5 mg/dL (8.5-10.1); CREATININE 1.4 mg/dL (0.7-1.3); GFR 60.3; POTASSIUM 3.8 mmol/L (3.5-5.1); TOTAL BILIRUBIN 0.5 mg/dL (0.2-1.0); TOTAL PROTEIN 5.9 g/dL (6.4-8.2)
--- NOTE | 2021-07-20 12:12 | PDOC ---
Date of Service: DATE: 07/20/21 TIME: 12:09 Subjective: Subjective: Still hurting. +flatus no stools. Objective: Objective: D/w nurse - asking for "pain shots." ~800cc from NG. Vital Signs: Vital Signs Date Time Temp Pulse Resp B/P (MAP) Pulse Ox O2 Delivery O2 Flow Rate FiO2 07/20/21 11:19 Room Air 07/20/21 11:00 98.3 69 18 179/95 (123) 98 98.3 Imaging: KUB 07/20 Impression: 1. Interval improvement of gaseous distention of small bowel loops. PE: GEN: NAD LUNGS: CTAB HEART: RRR ABD: soft, NG canister w/ ~800cc brownish liquid, pretty tender periumbilical NEURO/PSYCH: A & O 3, doesn't say much, covers his eyes when I recommended ongoing NG suction A/P: ?SBO - h/o same H/o perf DU s/p Rojelio patch @ [facility] - no active ulcers on recent EGD by Dr. Burnett Chronic pain -- Continue NGT, IV PPI. Justicifation of Admission Dx: Justifications for Admission: Justification of Admission Dx: Yes Sepsis: Dehydration SELENE CAREY Jul 20, 2021 12:12
[2021-07-20] MEDS: ZOLPIDEM 5 MG TABLET. PO PRN (22:30)
[2021-07-20] MEDS: hydrALAZINE 20 MG/ML VIAL. IVP PRN (23:14)
[2021-07-20] MEDS: ENALAPRILAT 2.5 MG/2 ML VIAL. IVP SCH (23:51)
[2021-07-21] MEDS: HYDROmorphone 2 MG/ML INJ. IVP PRN ×10 (00:34→22:28)
[2021-07-21] MEDS: PHENOL ORAL SPRAY 177ML BOTTLE. PO PRN ×6 (02:50→21:24)
[2021-07-21 03:04] VITALS: BP 143/85
[2021-07-21] MEDS: POTASSIUM CL 20MEQ D5-0.9%NACL 1,000 ML IV SCH ×3 (04:58→21:25)
[2021-07-21] MEDS: PANTOPRAZOLE IV PUSH 40 MG VIAL. IVP SCH ×2 (05:44→15:20)
[2021-07-21 07:00] VITALS: BP 176/106
[2021-07-21] MEDS: ENALAPRILAT 2.5 MG/2 ML VIAL. IVP SCH (07:48)
[2021-07-21 08:32] LABS: BASO % 0 % (0-3); EOS % 0 % (0-3); HEMOGLOBIN 13.6 g/dL (13.0-17.5); LYMPH # 1.2 x10^3/uL (1.0-4.8); LYMPH % 12 % (24-48); MEAN CORPUSCULAR HEMOGLOBIN 32 pg (25-35); MEAN CORPUSCULAR HGB CONC 32 g/dL (31-37); MEAN CORPUSCULAR VOLUME 99 fL (79-100); MONO # 1.1 x10^3/uL (0.0-1.1); MONO % 11 % (0-9); NEUT # 7.5 x10^3/uL (1.8-7.7); NEUT % 76 % (31-73); PLATELET COUNT 318 x10^3/uL (140-400); RED BLOOD COUNT 4.26 x10^6/uL (4.30-5.70); RED CELL DISTRIBUTION WIDTH 15.7 % (11.5-14.5); WHITE BLOOD COUNT 9.9 x10^3/uL (4.0-11.0)
[2021-07-21 08:40] LABS: ALBUMIN 2.9 g/dL (3.4-5.0); ALBUMIN/GLOBULIN RATIO 0.9 (1.0-1.7); CALCIUM 8.4 mg/dL (8.5-10.1); CREATININE 1.3 mg/dL (0.7-1.3); GFR 65.7; POTASSIUM 3.6 mmol/L (3.5-5.1); TOTAL BILIRUBIN 0.4 mg/dL (0.2-1.0)
--- NOTE | 2021-07-21 09:32 | RAD ---
XR ABDOMEN 1V History: Small bowel obstruction Comparison: 11/19/2021, 11/18/2021 Technique: AP portable supine radiograph the abdomen. Findings: Bowel gas pattern: Nonobstructive bowel gas pattern with resolution of gas dilated small bowel loops. Gas and stool present throughout the colon to the rectum. Free air: No supine evidence of free air. Abnormal calcifications: Pelvic phleboliths. Redemonstrated calcifications of the right retroperitone um possibly representing calcified lymph nodes. Bones: Degenerative changes of the spine. No acute findings. Other: Right inferior epigastric embolization coils. Gastric tube coils within the stomach. Impression: 1. Nonobstructive bowel gas pattern with resolution of dilated small bowel loops. Normal gas and sto ol throughout the colon to the rectum. Electronically signed by: Neftali Gudino MD (07/21/2021 9:30 AM) [id number]
--- NOTE | 2021-07-21 09:37 | PDOC ---
PROGRESS NOTES Date of Service: DATE: 07/21/21 TIME: 09:36 Subjective Subjective feels batter today Objective Objective Vital Signs Date Time Temp Pulse Resp B/P (MAP) Pulse Ox O2 Delivery O2 Flow Rate FiO2 07/21/21 08:19 Room Air 07/21/21 07:48 70 176/106 07/21/21 07:00 98.3 16 99 98.3 Intake and Output 07/21/21 07:00 Output Total 3400 ml Balance -3400 ml Output Urine Total 1900 ml Gastric Drainage Total 1000 ml Other 500 ml Physical Exam Abdomen: Soft Heart: Regular rate, Normal S1, Normal S2 Extremities: No clubbing General: Alert Lungs: Clear to auscultation MUSCULOSKELETAL: Osteoarthritic changes both hands Neck: Supple Neuro: Normal speech Psych/Mental Status: Mental status NL COMMENT NGT to suction Diagnosis Problem List Problems Medical Problems: (1) Acute epigastric pain Status: Acute (2) Other chest pain Status: Acute (3) SBO (small bowel obstruction) Status: Acute Assessment Assessment Problems Medical Problems: (1) Acute epigastric pain Status: Acute (2) Other chest pain Status: Acute (3) SBO (small bowel obstruction) Status: Acute FINAL IMPRESSION: 1. Abdominal pain secondary to partial small-bowel obstruction. 2. History of gastric perforation last year, had surgery done, partial gastric resection. 3. History of gastric ulcer, last EGD a couple of weeks ago. 4. chronic pain syndrome on narcotic pain meds 5. Chronic kidney disease. 6. Chronic hypothyroidism. 7. Foot drop secondary to previous back surgeries. PLAN: IV dilaudid q 2 h NGT to suction iv fluids GI consult appreciated KUB improving ,resolving SBO. labs -cbc bmp -good At this time, was admit to hospital, hydrate with IV fluids, NG tube to intermittent suction. GI is consulted. DVT prophylaxis, IV fluids and see how he improves in the next 24-48 hours. Plan Plan of Care Problems Medical Problems: (1) Acute epigastric pain Status: Acute (2) Other chest pain Status: Acute (3) SBO (small bowel obstruction) Status: Acute Comment Review of Relevant I have reviewed the following items sharyn (where applicable) has been applied. Labs Laboratory Tests Test 07/21/21 07:45 White Blood Count 9.9 x10^3/uL (4.0-11.0) Red Blood Count 4.26 x10^6/uL (4.30-5.70) Hemoglobin 13.6 g/dL (13.0-17.5) Hematocrit 42.0 % (39.0-53.0) Mean Corpuscular Volume 99 fL (79-100) Mean Corpuscular Hemoglobin 32 pg (25-35) Mean Corpuscular Hemoglobin Concent 32 g/dL (31-37) Red Cell Distribution Width 15.7 % (11.5-14.5) Platelet Count 318 x10^3/uL (140-400) Neutrophils (%) (Auto) 76 % (31-73) Lymphocytes (%) (Auto) 12 % (24-48) Monocytes (%) (Auto) 11 % (0-9) Eosinophils (%) (Auto) 0 % (0-3) Basophils (%) (Auto) 0 % (0-3) Neutrophils # (Auto) 7.5 x10^3/uL (1.8-7.7) Lymphocytes # (Auto) 1.2 x10^3/uL (1.0-4.8) Monocytes # (Auto) 1.1 x10^3/uL (0.0-1.1) Eosinophils # (Auto) 0.0 x10^3/uL (0.0-0.7) Basophils # (Auto) 0.0 x10^3/uL (0.0-0.2) Sodium Level 140 mmol/L (136-145) Potassium Level 3.6 mmol/L (3.5-5.1) Chloride Level 107 mmol/L (98-107) Carbon Dioxide Level 26 mmol/L (21-32) Anion Gap 7 (6-14) Blood Urea Nitrogen 8 mg/dL (8-26) Creatinine 1.3 mg/dL (0.7-1.3) Estimated GFR (Cockcroft-Gault) 65.7 BUN/Creatinine Ratio 6 (6-20) Glucose Level 131 mg/dL (70-99) Calcium Level 8.4 mg/dL (8.5-10.1) Total Bilirubin 0.4 mg/dL (0.2-1.0) Aspartate Amino Transf (AST/SGOT) 46 U/L (15-37) Alanine Aminotransferase (ALT/SGPT) 26 U/L (16-63) Alkaline Phosphatase 78 U/L (46-116) Total Protein 6.0 g/dL (6.4-8.2) Albumin 2.9 g/dL (3.4-5.0) Albumin/Globulin Ratio 0.9 (1.0-1.7) Medications Current Medications Enalaprilat (Vasotec Inj) 2.5 mg DAILY IVP Last administered on 07/21/21at 07:48; Start 07/20/21 at 23:15 Hydralazine HCl (Apresoline Inj) 10 mg PRN Q4HRS PRN IVP ELEVATED BP, SEE COMMENTS Last administered on 07/20/21at 23:14; Start 07/20/21 at 23:15 Hydromorphone HCl (Dilaudid) 1 mg PRN Q2HR PRN IVP PAIN Last administered on 07/21/21at 07:49; Start 07/20/21 at 22:00 Zolpidem Tartrate (Ambien) 5 mg PRN QHS PRN PO INSOMNIA Last administered on 07/20/21at 22:30; Start 07/20/21 at 22:00 Vitals/I & O Vital Sign - Last 24 Hours 07/20/21 07/20/21 07/20/21 07/20/21 11:00 11:19 11:49 14:16 Temp 98.3 98.3 Pulse 69 Resp 18 B/P (MAP) 179/95 (123) Pulse Ox 98 O2 Delivery Room Air Room Air Room Air Room Air 07/20/21 07/20/21 07/20/21 07/20/21 14:46 15:00 17:29 17:59 Temp 98.0 98.0 Pulse 65 Resp 18 B/P (MAP) 185/97 (126) Pulse Ox 97 O2 Delivery Room Air Room Air Room Air Room Air 07/20/21 07/20/21 07/20/21 07/20/21 19:45 20:00 20:11 22:30 Temp 98.6 98.6 Pulse 63 Resp 18 20 20 B/P (MAP) 192/100 (130) Pulse Ox 99 97 97 O2 Delivery Room Air Room Air Room Air Room Air 07/20/21 07/20/21 07/20/21 07/20/21 22:56 23:00 23:14 23:49 Temp 98.1 98.1 Pulse 84 84 76 Resp 18 20 B/P (MAP) 209/102 (137) 209/102 139/78 (98) Pulse Ox 98 O2 Delivery Room Air Room Air 07/20/21 07/21/21 07/21/21 07/21/21 23:51 00:34 01:04 02:47 Pulse 76 Resp 20 20 20 B/P (MAP) 139/78 Pulse Ox 98 98 98 O2 Delivery Room Air Room Air Room Air 07/21/21 07/21/21 07/21/21 07/21/21 03:04 03:17 04:48 05:18 Temp 98.3 98.3 Pulse 79 Resp 18 20 20 20 B/P (MAP) 143/85 (104) Pulse Ox 98 96 96 96 O2 Delivery Room Air Room Air Room Air Room Air 07/21/21 07/21/21 07/21/21 07/21/21 07:00 07:48 07:49 08:00 Temp 98.3 98.3 Pulse 70 70 Resp 16 B/P (MAP) 176/106 (129) 176/106 Pulse Ox 99 O2 Delivery Room Air Room Air Room Air 07/21/21 08:19 O2 Delivery Room Air Intake and Output 07/20/21 07/20/21 07/21/21 15:00 23:00 07:00 Output Total 2350 ml 1050 ml Balance -2350 ml -1050 ml Justifications for Admission Other Justification MATT OSORIO MD Jul 21, 2021 09:37
[2021-07-21 11:00] VITALS: BP 181/107
[2021-07-21] MEDS: hydrALAZINE 20 MG/ML VIAL. IVP PRN ×2 (11:06→19:49)
--- NOTE | 2021-07-21 12:31 | PDOC ---
Date of Service: DATE: 07/21/21 TIME: 12:26 Subjective: Subjective: Still has some pain. Passing flatus, no stool. Objective: Objective: D/w nurse - NGT clamped - pt getting ice chips, ?drinking water - unclear how much. Vital Signs: Vital Signs Date Time Temp Pulse Resp B/P (MAP) Pulse Ox O2 Delivery O2 Flow Rate FiO2 07/21/21 11:06 181/100 07/21/21 11:05 Room Air 07/21/21 11:00 97.7 82 16 98 97.7 Labs: Laboratory Tests Test 07/21/21 07:45 White Blood Count 9.9 x10^3/uL Red Blood Count 4.26 x10^6/uL Hemoglobin 13.6 g/dL Hematocrit 42.0 % Mean Corpuscular Volume 99 fL Mean Corpuscular Hemoglobin 32 pg Mean Corpuscular Hemoglobin Concent 32 g/dL Red Cell Distribution Width 15.7 % Platelet Count 318 x10^3/uL Neutrophils (%) (Auto) 76 % Lymphocytes (%) (Auto) 12 % Monocytes (%) (Auto) 11 % Eosinophils (%) (Auto) 0 % Basophils (%) (Auto) 0 % Neutrophils # (Auto) 7.5 x10^3/uL Lymphocytes # (Auto) 1.2 x10^3/uL Monocytes # (Auto) 1.1 x10^3/uL Eosinophils # (Auto) 0.0 x10^3/uL Basophils # (Auto) 0.0 x10^3/uL Sodium Level 140 mmol/L Potassium Level 3.6 mmol/L Chloride Level 107 mmol/L Carbon Dioxide Level 26 mmol/L Anion Gap 7 Blood Urea Nitrogen 8 mg/dL Creatinine 1.3 mg/dL Estimated GFR (Cockcroft-Gault) 65.7 BUN/Creatinine Ratio 6 Glucose Level 131 mg/dL Calcium Level 8.4 mg/dL Total Bilirubin 0.4 mg/dL Aspartate Amino Transf (AST/SGOT) 46 U/L Alanine Aminotransferase (ALT/SGPT) 26 U/L Alkaline Phosphatase 78 U/L Total Protein 6.0 g/dL Albumin 2.9 g/dL Albumin/Globulin Ratio 0.9 Imaging: KUB 07/21 Impression: 1. Nonobstructive bowel gas pattern with resolution of dilated small bowel loops. Normal gas and stool throughout the colon to the rectum. PE: GEN: NAD LUNGS: CTAB HEART: RRR ABD: soft, BS+, still pretty tender epigastrium, NG cannister nearly full (emptied yesterday afternoon) w/ brownish liquid NEURO/PSYCH: A & O 3 A/P: Recurrent SBO H/o perf DU s/p Rojelio patch @ [facility]'s HTN, chronic pain -- Improvement on x-ray but ongoing pain and still seems significant NGT output (now clamped) - also not clear how much ice chips/water he's taking. Justicifation of Admission Dx: Justifications for Admission: Justification of Admission Dx: Yes Sepsis: Dehydration SELENE CAREY Jul 21, 2021 12:31
[2021-07-21 15:00] VITALS: BP 151/101
[2021-07-21 19:30] VITALS: BP 176/99
[2021-07-21 23:12] VITALS: BP 153/90
[2021-07-22] MEDS: PHENOL ORAL SPRAY 177ML BOTTLE. PO PRN ×9 (00:36→20:42)
[2021-07-22] MEDS: HYDROmorphone 2 MG/ML INJ. IVP PRN ×11 (00:36→23:02)
[2021-07-22 03:06] VITALS: BP 139/92
[2021-07-22] MEDS: POTASSIUM CL 20MEQ D5-0.9%NACL 1,000 ML IV SCH ×2 (05:11→14:07)
[2021-07-22 06:01] VITALS: BP 146/95
[2021-07-22] MEDS: PANTOPRAZOLE IV PUSH 40 MG VIAL. IVP SCH ×2 (07:36→16:09)
[2021-07-22] MEDS: ENALAPRILAT 2.5 MG/2 ML VIAL. IVP SCH (07:37)
[2021-07-22 11:00] VITALS: BP 136/73
--- NOTE | 2021-07-22 12:47 | PDOC ---
PROGRESS NOTES Date of Service: DATE: 07/22/21 TIME: 12:46 Subjective Subjective feels better Objective Objective Vital Signs Date Time Temp Pulse Resp B/P (MAP) Pulse Ox O2 Delivery O2 Flow Rate FiO2 07/22/21 11:56 Room Air 07/22/21 07:37 78 146/95 07/22/21 06:01 98.4 20 99 98.4 Intake and Output 07/22/21 07:00 Output Total 1900 ml Balance -1900 ml Output Urine Total 1050 ml Gastric Drainage Total 850 ml Physical Exam Abdomen: Soft Heart: Regular rate, Normal S1, Normal S2 Extremities: No clubbing General: Alert Lungs: Clear to auscultation MUSCULOSKELETAL: Osteoarthritic changes both hands Neck: Supple Neuro: Normal speech Psych/Mental Status: Mental status NL COMMENT NGT to suction Diagnosis Problem List Problems Medical Problems: (1) Acute epigastric pain Status: Acute (2) Other chest pain Status: Acute (3) SBO (small bowel obstruction) Status: Acute Assessment Assessment Problems Medical Problems: (1) Acute epigastric pain Status: Acute (2) Other chest pain Status: Acute (3) SBO (small bowel obstruction) Status: Acute FINAL IMPRESSION: 1. Abdominal pain secondary to partial small-bowel obstruction. 2. History of gastric perforation last year, had surgery done, partial gastric resection. 3. History of gastric ulcer, last EGD a couple of weeks ago. 4. chronic pain syndrome on narcotic pain meds 5. Chronic kidney disease. 6. Chronic hypothyroidism. 7. Foot drop secondary to previous back surgeries. PLAN: clamp NGT today clear liquid tomorrow. IV dilaudid q 2 h iv fluids GI consult appreciated KUB improving ,resolving SBO. labs -cbc bmp -good Plan Plan of Care Problems Medical Problems: (1) Acute epigastric pain Status: Acute (2) Other chest pain Status: Acute (3) SBO (small bowel obstruction) Status: Acute Comment Review of Relevant I have reviewed the following items sharyn (where applicable) has been applied. Vitals/I & O Vital Sign - Last 24 Hours 07/21/21 07/21/21 07/21/21 07/21/21 13:21 13:51 15:00 15:20 Temp 98.4 98.4 Pulse 91 Resp 18 B/P (MAP) 151/101 (118) Pulse Ox 97 O2 Delivery Room Air Room Air Room Air Room Air 07/21/21 07/21/21 07/21/21 07/21/21 15:50 17:20 17:50 19:30 Temp 97.9 97.9 Pulse 75 Resp 18 B/P (MAP) 176/99 (124) Pulse Ox 99 O2 Delivery Room Air Room Air Room Air Room Air 07/21/21 07/21/21 07/21/21 07/21/21 19:49 19:50 20:00 21:23 Pulse 75 Resp 18 18 B/P (MAP) 176/99 O2 Delivery Room Air 07/21/21 07/21/21 07/21/21 07/22/21 22:28 23:12 23:12 00:36 Temp 98.3 98.3 Pulse 72 Resp 16 16 18 18 B/P (MAP) 153/90 (111) Pulse Ox 98 O2 Delivery Room Air 07/22/21 07/22/21 07/22/21 07/22/21 01:06 03:02 03:06 04:02 Temp 98.2 98.2 Pulse 87 Resp 16 16 18 16 B/P (MAP) 139/92 (108) Pulse Ox 98 O2 Delivery Room Air 07/22/21 07/22/21 07/22/21 07/22/21 05:57 06:01 07:37 07:37 Temp 98.4 98.4 Pulse 78 78 Resp 16 20 B/P (MAP) 146/95 (112) 146/95 Pulse Ox 99 O2 Delivery Room Air Room Air 07/22/21 07/22/21 07/22/21 07/22/21 08:07 09:46 10:16 11:56 O2 Delivery Room Air Room Air Room Air Room Air Intake and Output 07/21/21 07/21/21 07/22/21 15:00 23:00 07:00 Output Total 450 ml 350 ml 1100 ml Balance -450 ml -350 ml -1100 ml Justifications for Admission Other Justification MATT OSORIO MD Jul 22, 2021 12:47
[2021-07-22 15:00] VITALS: BP 107/64
[2021-07-22 19:00] VITALS: BP 130/70
--- NOTE | 2021-07-22 22:23 | NUR ---
Pts NG tube pulled out @ 2039. notified and no new orders received at this time.
[2021-07-22] MEDS: POTASSIUM CHLORIDE IV SCH (23:02)
[2021-07-22] MEDS: NACL IV SCH (23:02)
[2021-07-22] MEDS: DEXTROSE IV SCH (23:02)
[2021-07-22 23:39] VITALS: BP 137/65
[2021-07-23] MEDS: HYDROmorphone 2 MG/ML INJ. IVP PRN ×10 (01:07→22:33)
[2021-07-23 03:26] VITALS: BP 153/84
[2021-07-23] MEDS: PHENOL ORAL SPRAY 177ML BOTTLE. PO PRN ×3 (04:19→11:19)
[2021-07-23 06:37] VITALS: BP 86/84
[2021-07-23] MEDS: PANTOPRAZOLE IV PUSH 40 MG VIAL. IVP SCH ×2 (07:04→16:53)
[2021-07-23] MEDS: NACL IV SCH ×2 (07:05→16:53)
[2021-07-23] MEDS: POTASSIUM CHLORIDE IV SCH ×2 (07:05→16:53)
[2021-07-23] MEDS: DEXTROSE IV SCH ×2 (07:05→16:53)
[2021-07-23 08:13] LABS: BASO % 0 % (0-3); EOS # 0.1 x10^3/uL (0.0-0.7); EOS % 1 % (0-3); HEMATOCRIT 39.7 % (39.0-53.0); HEMOGLOBIN 12.7 g/dL (13.0-17.5); LYMPH # 1.4 x10^3/uL (1.0-4.8); LYMPH % 17 % (24-48); MEAN CORPUSCULAR HEMOGLOBIN 32 pg (25-35); MEAN CORPUSCULAR HGB CONC 32 g/dL (31-37); MEAN CORPUSCULAR VOLUME 99 fL (79-100); MONO # 0.8 x10^3/uL (0.0-1.1); MONO % 10 % (0-9); NEUT # 5.8 x10^3/uL (1.8-7.7); NEUT % 72 % (31-73); PLATELET COUNT 288 x10^3/uL (140-400); RED BLOOD COUNT 4.01 x10^6/uL (4.30-5.70); WHITE BLOOD COUNT 8.1 x10^3/uL (4.0-11.0)
[2021-07-23 08:38] LABS: CALCIUM 8.1 mg/dL (8.5-10.1); CREATININE 1.3 mg/dL (0.7-1.3); GFR 65.5; POTASSIUM 3.5 mmol/L (3.5-5.1)
[2021-07-23] MEDS: ENALAPRILAT 2.5 MG/2 ML VIAL. IVP SCH (09:12)
[2021-07-23 11:00] VITALS: BP 121/76
--- NOTE | 2021-07-23 11:16 | PDOC ---
IM PROGRESS NOTES- Subjective Subjective No complaints of pain or dyspnea. He wants to eat. He is having bowel movements and does not have any nausea or vomiting. Objective Vitals/I&O Vital Signs Date Time Temp Pulse Resp B/P (MAP) Pulse Ox O2 Delivery O2 Flow Rate FiO2 07/23/21 09:42 Room Air 07/23/21 09:12 69 161/89 07/23/21 06:37 98.4 20 100 98.4 I & O0 07/22/21 07/22/21 07/23/21 15:00 23:00 07:00 Intake Total 1000 ml Output Total 400 ml Balance 600 ml Physical Exam Physical Exam General Appearance - alert and in no distress Chest - decreased breath sounds at bases Heart - S1 and S2 normal Abdomen - soft, non tender, bowel sounds present. No distention. Neurological - alert and oriented Musculoskeletal - generalized weakness Extremities - no edema Labs Laboratory Tests Test 07/23/21 07:35 White Blood Count 8.1 x10^3/uL (4.0-11.0) Red Blood Count 4.01 x10^6/uL (4.30-5.70) L Hemoglobin 12.7 g/dL (13.0-17.5) L Hematocrit 39.7 % (39.0-53.0) Mean Corpuscular Volume 99 fL (79-100) Mean Corpuscular Hemoglobin 32 pg (25-35) Mean Corpuscular Hemoglobin Concent 32 g/dL (31-37) Red Cell Distribution Width 15.0 % (11.5-14.5) H Platelet Count 288 x10^3/uL (140-400) Neutrophils (%) (Auto) 72 % (31-73) Lymphocytes (%) (Auto) 17 % (24-48) L Monocytes (%) (Auto) 10 % (0-9) H Eosinophils (%) (Auto) 1 % (0-3) Basophils (%) (Auto) 0 % (0-3) Neutrophils # (Auto) 5.8 x10^3/uL (1.8-7.7) Lymphocytes # (Auto) 1.4 x10^3/uL (1.0-4.8) Monocytes # (Auto) 0.8 x10^3/uL (0.0-1.1) Eosinophils # (Auto) 0.1 x10^3/uL (0.0-0.7) Basophils # (Auto) 0.0 x10^3/uL (0.0-0.2) Sodium Level 142 mmol/L (136-145) Potassium Level 3.5 mmol/L (3.5-5.1) Chloride Level 108 mmol/L (98-107) H Carbon Dioxide Level 24 mmol/L (21-32) Anion Gap 10 (6-14) Blood Urea Nitrogen 6 mg/dL (8-26) L Creatinine 1.3 mg/dL (0.7-1.3) Estimated GFR (Cockcroft-Gault) 65.5 Glucose Level 97 mg/dL (70-99) Calcium Level 8.1 mg/dL (8.5-10.1) L Laboratory Tests 07/23/21 07:35 Laboratory Tests 07/23/21 07:35 Meds Current Medications Medications (Trade) Dose Ordered Sig/Louise Route PRN Reason Start Time Stop Time Status Last Admin Dose Admin Potassium Chloride 20 meq/ Dextrose/Sodium Chloride 1,010 ml @ 125 mls/hr Q8H5M IV 07/22/21 22:30 07/23/21 07:05 Assessment Assessment Problems Medical Problems: (1) Acute epigastric pain Status: Acute (2) Other chest pain Status: Acute (3) SBO (small bowel obstruction) Status: Acute FINAL IMPRESSION: 1. Abdominal pain secondary to partial small-bowel obstruction. 2. History of gastric perforation last year, had surgery done, partial gastric resection. 3. History of gastric ulcer, last EGD a couple of weeks ago. 4. chronic pain syndrome on narcotic pain meds 5. Chronic kidney disease. 6. Chronic hypothyroidism. 7. Foot drop secondary to previous back surgeries. PLAN: He pulled NG tube yesterday. He has told the staff that his family is going to bring him food. Advance diet per brand strategist. IV dilaudid q 2 h. he is requesting pain medications quite frequently every 2 hours. iv fluids GI consult appreciated KUB improving ,resolving SBO. Hypokalemia- K 3.5- replace. Plan Plan For more details regarding further plans, please refer to the orders. Justifications for Admission Other Justification RUMA MCGINNIS MD Jul 23, 2021 11:16
[2021-07-23] MEDS: POTASSIUM CHLORIDE 10MEQ 100 ML IV SCH ×2 (11:49→13:19)
[2021-07-23 15:00] VITALS: BP 140/83
[2021-07-23] MEDS ORDERED: POTASSIUM CL 20MEQ D5-0.9%NACL 1,000 ML IV SCH (15:00)
[2021-07-23 19:00] VITALS: BP 160/83
[2021-07-23] MEDS: ZOLPIDEM 5 MG TABLET. PO PRN (20:28)
[2021-07-23 23:00] VITALS: BP 135/80
[2021-07-24] MEDS: HYDROmorphone 2 MG/ML INJ. IVP PRN ×5 (00:37→10:05)
[2021-07-24] MEDS: DEXTROSE IV SCH ×3 (01:19→14:34)
[2021-07-24] MEDS: POTASSIUM CHLORIDE IV SCH ×3 (01:19→14:34)
[2021-07-24] MEDS: NACL IV SCH ×3 (01:19→14:34)
[2021-07-24 03:43] VITALS: BP 144/72
[2021-07-24 03:51] LABS: BASO % 1 % (0-3); EOS # 0.1 x10^3/uL (0.0-0.7); EOS % 2 % (0-3); HEMATOCRIT 33.5 % (39.0-53.0); HEMOGLOBIN 11.2 g/dL (13.0-17.5); LYMPH # 1.2 x10^3/uL (1.0-4.8); LYMPH % 25 % (24-48); MEAN CORPUSCULAR HEMOGLOBIN 33 pg (25-35); MEAN CORPUSCULAR HGB CONC 33 g/dL (31-37); MEAN CORPUSCULAR VOLUME 98 fL (79-100); MONO # 0.6 x10^3/uL (0.0-1.1); MONO % 14 % (0-9); NEUT # 2.8 x10^3/uL (1.8-7.7); NEUT % 59 % (31-73); PLATELET COUNT 218 x10^3/uL (140-400); RED BLOOD COUNT 3.41 x10^6/uL (4.30-5.70); RED CELL DISTRIBUTION WIDTH 14.7 % (11.5-14.5); WHITE BLOOD COUNT 4.8 x10^3/uL (4.0-11.0)
[2021-07-24 04:00] LABS: CALCIUM 7.6 mg/dL (8.5-10.1); CREATININE 1.3 mg/dL (0.7-1.3); GFR 65.5; POTASSIUM 4.2 mmol/L (3.5-5.1)
[2021-07-24 07:00] VITALS: BP 159/87
[2021-07-24] MEDS: PANTOPRAZOLE IV PUSH 40 MG VIAL. IVP SCH ×2 (07:46→16:41)
--- NOTE | 2021-07-24 07:55 | NUR ---
not documented Addendum: 07/24/21 at 0755 by JH WINKLER RN RN Amended: Links added.
--- NOTE | 2021-07-24 09:28 | PDOC ---
PROGRESS NOTES Date of Service: DATE: 07/24/21 TIME: 09:28 Subjective Subjective tolerating diet ,want o advance diet. Objective Objective Vital Signs Date Time Temp Pulse Resp B/P (MAP) Pulse Ox O2 Delivery O2 Flow Rate FiO2 07/24/21 07:47 Room Air 07/24/21 07:00 98.2 73 18 159/87 (111) 99 98.2 Intake and Output 07/24/21 07:00 Intake Total 260 ml Output Total 500 ml Balance -240 ml Intake Oral 260 ml Output Urine Total 500 ml Physical Exam Abdomen: Soft Heart: Regular rate, Normal S1, Normal S2 Extremities: No clubbing General: Alert Lungs: Clear to auscultation MUSCULOSKELETAL: Osteoarthritic changes both hands Neck: Supple Neuro: Normal speech Psych/Mental Status: Mental status NL COMMENT NGT to suction Diagnosis Problem List Problems Medical Problems: (1) Acute epigastric pain Status: Acute (2) Other chest pain Status: Acute (3) SBO (small bowel obstruction) Status: Acute Assessment Assessment Problems Medical Problems: (1) Acute epigastric pain Status: Acute (2) Other chest pain Status: Acute (3) SBO (small bowel obstruction) Status: Acute FINAL IMPRESSION: 1. Abdominal pain secondary to partial small-bowel obstruction. 2. History of gastric perforation last year, had surgery done, partial gastric resection. 3. History of gastric ulcer, last EGD a couple of weeks ago. 4. chronic pain syndrome on narcotic pain meds 5. Chronic kidney disease. 6. Chronic hypothyroidism. 7. Foot drop secondary to previous back surgeries. PLAN:tolerating diet ,advance diet today ? Small bowel series am , KUB resolved SBO. He pulled NG tube yesterday. He has told the staff that his family is going to bring him food. Advance diet per lead manufacturing engineering tech. IV dilaudid q 2 h. he is requesting pain medications quite frequently every 2 hours. iv fluids GI consult appreciated KUB improving ,resolving SBO. Hypokalemia- K 3.5- replace. Plan Plan of Care Problems Medical Problems: (1) Acute epigastric pain Status: Acute (2) Other chest pain Status: Acute (3) SBO (small bowel obstruction) Status: Acute Comment Review of Relevant I have reviewed the following items sharyn (where applicable) has been applied. Labs Laboratory Tests Test 07/24/21 02:30 White Blood Count 4.8 x10^3/uL (4.0-11.0) Red Blood Count 3.41 x10^6/uL (4.30-5.70) Hemoglobin 11.2 g/dL (13.0-17.5) Hematocrit 33.5 % (39.0-53.0) Mean Corpuscular Volume 98 fL (79-100) Mean Corpuscular Hemoglobin 33 pg (25-35) Mean Corpuscular Hemoglobin Concent 33 g/dL (31-37) Red Cell Distribution Width 14.7 % (11.5-14.5) Platelet Count 218 x10^3/uL (140-400) Neutrophils (%) (Auto) 59 % (31-73) Lymphocytes (%) (Auto) 25 % (24-48) Monocytes (%) (Auto) 14 % (0-9) Eosinophils (%) (Auto) 2 % (0-3) Basophils (%) (Auto) 1 % (0-3) Neutrophils # (Auto) 2.8 x10^3/uL (1.8-7.7) Lymphocytes # (Auto) 1.2 x10^3/uL (1.0-4.8) Monocytes # (Auto) 0.6 x10^3/uL (0.0-1.1) Eosinophils # (Auto) 0.1 x10^3/uL (0.0-0.7) Basophils # (Auto) 0.0 x10^3/uL (0.0-0.2) Sodium Level 137 mmol/L (136-145) Potassium Level 4.2 mmol/L (3.5-5.1) Chloride Level 107 mmol/L (98-107) Carbon Dioxide Level 24 mmol/L (21-32) Anion Gap 6 (6-14) Blood Urea Nitrogen 7 mg/dL (8-26) Creatinine 1.3 mg/dL (0.7-1.3) Estimated GFR (Cockcroft-Gault) 65.5 Glucose Level 91 mg/dL (70-99) Calcium Level 7.6 mg/dL (8.5-10.1) Medications Current Medications Potassium Chloride/Dextrose/ Sod Cl 1,000 ml @ 125 mls/hr Q8H IV ; Start 07/23/21 at 15:00; Status Cancel Potassium Chloride/Water 100 ml @ 100 mls/hr Q1H IV Last administered on 07/23/21at 13:19; Start 07/23/21 at 12:00; Stop 07/23/21 at 13:59; Status DC Vitals/I & O Vital Sign - Last 24 Hours 07/23/21 07/23/21 07/23/21 07/23/21 09:42 11:00 11:19 11:49 Temp 98.7 98.7 Pulse 66 Resp 20 B/P (MAP) 121/76 (91) Pulse Ox 100 O2 Delivery Room Air Room Air Room Air Room Air 07/23/21 07/23/21 07/23/21 07/23/21 13:20 13:50 15:00 15:35 Temp 98.5 98.5 Pulse 66 Resp 20 B/P (MAP) 140/83 (102) Pulse Ox 100 O2 Delivery Room Air Room Air Room Air Room Air 07/23/21 07/23/21 07/23/21 07/23/21 16:05 17:30 18:00 19:00 Temp 98.2 98.2 Pulse 67 Resp 20 B/P (MAP) 160/83 (108) Pulse Ox 92 97 O2 Delivery Room Air Room Air Room Air Room Air 07/23/21 07/23/21 07/24/21 07/24/21 20:15 23:00 03:43 07:00 Temp 97.0 97.7 98.2 97.0 97.7 98.2 Pulse 94 94 73 Resp 20 20 18 B/P (MAP) 135/80 (98) 144/72 (96) 159/87 (111) Pulse Ox 97 99 99 O2 Delivery Room Air Room Air Room Air Room Air 07/24/21 07:47 O2 Delivery Room Air Intake and Output 07/23/21 07/23/21 07/24/21 15:00 23:00 07:00 Intake Total 260 ml Output Total 500 ml Balance -240 ml Justifications for Admission Other Justification MATT OSORIO MD Jul 24, 2021 09:28
[2021-07-24] MEDS ORDERED: OXYC10TA PO (09:29)
--- NOTE | 2021-07-24 09:39 | RAD ---
EXAM: XR ABDOMEN 1V 07/24/2021 8:41 AM CLINICAL INDICATION: Small bowel obstruction COMPARISON: Abdominal radiograph 07/21/2021 TECHNIQUE: AP supine view of the abdomen. FINDINGS: Scattered gas throughout the small bowel and colon without evidence of obstruction. There i s stool in the right hemicolon. Embolization coils project over the right hemisacrum. There are multi ple calcifications in the right lower quadrant, unchanged. There is lumbar degenerative disc disease. IMPRESSION: No evidence of small bowel obstruction. Electronically signed by: Sima Rodriguez MD (07/24/2021 9:36 AM) [id number]
[2021-07-24] MEDS: ENALAPRILAT 2.5 MG/2 ML VIAL. IVP SCH (10:05)
[2021-07-24 11:00] VITALS: BP 135/79
[2021-07-24] MEDS: oxyCODONE IR 5 MG TABLET PO PRN ×2 (12:52→20:42)
--- NOTE | 2021-07-24 13:23 | PDOC ---
Date of Service: DATE: 07/24/21 TIME: 13:21 Subjective: Subjective: Eating some. No n/v. Stooled "a little" and has "a little" abdominal pain. Would be agreeable to SBS except not crazy about the idea of being NPO again. Objective: Vital Signs: Vital Signs Date Time Temp Pulse Resp B/P (MAP) Pulse Ox O2 Delivery O2 Flow Rate FiO2 07/24/21 12:52 Room Air 07/24/21 11:00 98.2 71 18 135/79 (97) 99 98.2 Labs: Laboratory Tests Test 07/24/21 02:30 White Blood Count 4.8 x10^3/uL Red Blood Count 3.41 x10^6/uL Hemoglobin 11.2 g/dL Hematocrit 33.5 % Mean Corpuscular Volume 98 fL Mean Corpuscular Hemoglobin 33 pg Mean Corpuscular Hemoglobin Concent 33 g/dL Red Cell Distribution Width 14.7 % Platelet Count 218 x10^3/uL Neutrophils (%) (Auto) 59 % Lymphocytes (%) (Auto) 25 % Monocytes (%) (Auto) 14 % Eosinophils (%) (Auto) 2 % Basophils (%) (Auto) 1 % Neutrophils # (Auto) 2.8 x10^3/uL Lymphocytes # (Auto) 1.2 x10^3/uL Monocytes # (Auto) 0.6 x10^3/uL Eosinophils # (Auto) 0.1 x10^3/uL Basophils # (Auto) 0.0 x10^3/uL Sodium Level 137 mmol/L Potassium Level 4.2 mmol/L Chloride Level 107 mmol/L Carbon Dioxide Level 24 mmol/L Anion Gap 6 Blood Urea Nitrogen 7 mg/dL Creatinine 1.3 mg/dL Estimated GFR (Cockcroft-Gault) 65.5 Glucose Level 91 mg/dL Calcium Level 7.6 mg/dL PE: GEN: NAD LUNGS: CTAB HEART: RRR ABD: soft, epigastric/periumbilical discomfort - better, BS+ NEURO/PSYCH: A & O 3 A/P: Recurrent SBO H/o perf DU s/p Rojelio patch @ [facility] Chronic pain -- Had some stool, pulled NGT, eating a GI soft diet. SBS tomorrow? Will d/w Dr. Burnett. Justicifation of Admission Dx: Justifications for Admission: Justification of Admission Dx: Yes Sepsis: Dehydration SELENE CAREY Jul 24, 2021 13:23
[2021-07-24 15:00] VITALS: BP 137/91
[2021-07-24 19:30] VITALS: BP 142/75
[2021-07-24] MEDS: ZOLPIDEM 5 MG TABLET. PO PRN (20:40)
[2021-07-24] MEDS: POTASSIUM CL 20MEQ D5-0.9%NACL 1,000 ML IV SCH (22:45)
[2021-07-24 23:22] VITALS: BP 145/86
[2021-07-25] MEDS: oxyCODONE IR 5 MG TABLET PO PRN ×2 (02:59→09:57)
[2021-07-25 03:13] VITALS: BP 145/91
[2021-07-25 07:00] VITALS: BP 167/98
[2021-07-25] MEDS: POTASSIUM CL 20MEQ D5-0.9%NACL 1,000 ML IV SCH ×2 (07:09→13:26)
[2021-07-25] MEDS: ENALAPRILAT 2.5 MG/2 ML VIAL. IVP SCH (08:50)
[2021-07-25] MEDS: PANTOPRAZOLE IV PUSH 40 MG VIAL. IVP SCH (08:50)
[2021-07-25] MEDS ORDERED: IOHEXOL 300 MG/ML 100ML VIAL. PO ONE (09:00)
--- NOTE | 2021-07-25 09:22 | PDOC ---
PROGRESS NOTES Date of Service: DATE: 07/25/21 TIME: Subjective Subjective feels ok Objective Objective Vital Signs Date Time Temp Pulse Resp B/P (MAP) Pulse Ox O2 Delivery O2 Flow Rate FiO2 07/25/21 08:50 65 167/98 07/25/21 07:00 98.2 18 98 Room Air 98.2 Intake and Output 07/25/21 07:00 Intake Total 240 ml Output Total 300 ml Balance -60 ml Intake Oral 240 ml Output Urine Total 300 ml # Voids 1 Physical Exam Abdomen: Soft Heart: Regular rate, Normal S1, Normal S2 Extremities: No clubbing General: Alert Lungs: Clear to auscultation MUSCULOSKELETAL: Osteoarthritic changes both hands Neck: Supple Neuro: Normal speech Psych/Mental Status: Mental status NL Diagnosis Problem List Problems Medical Problems: (1) Acute epigastric pain Status: Acute (2) Other chest pain Status: Acute (3) SBO (small bowel obstruction) Status: Acute Assessment Assessment Problems Medical Problems: (1) Acute epigastric pain Status: Acute (2) Other chest pain Status: Acute (3) SBO (small bowel obstruction) Status: Acute FINAL IMPRESSION: 1. Abdominal pain secondary to partial small-bowel obstruction. 2. History of gastric perforation last year, had surgery done, partial gastric resection. 3. History of gastric ulcer, last EGD a couple of weeks ago. 4. chronic pain syndrome on narcotic pain meds 5. Chronic kidney disease. 6. Chronic hypothyroidism. 7. Foot drop secondary to previous back surgeries. PLAN: Small bowel series today. d/c home later today if above normal. tolerating diet ,advanced diet today KUB resolved SBO. Plan Plan of Care Problems Medical Problems: (1) Acute epigastric pain Status: Acute (2) Other chest pain Status: Acute (3) SBO (small bowel obstruction) Status: Acute Comment Review of Relevant I have reviewed the following items sharyn (where applicable) has been applied. Medications Current Medications Iohexol (Omnipaque 300 Mg/ml) 400 ml 1X ONCE PO Last administered on 07/25/21at 09:07; Start 07/25/21 at 09:00; Stop 07/25/21 at 09:01; Status DC Oxycodone HCl (Roxicodone) 10 mg PRN Q6HRS PRN PO PAIN Last administered on 4/19/22at 02:59; Start 07/24/21 at 12:30 Potassium Chloride/Dextrose/ Sod Cl 1,000 ml @ 125 mls/hr Q8H IV Last administered on 07/25/21at 07:09; Start 07/24/21 at 22:45 Vitals/I & O Vital Sign - Last 24 Hours 07/24/21 07/24/21 07/24/21 07/24/21 10:05 10:05 10:35 11:00 Temp 98.2 98.2 Pulse 73 71 Resp 18 B/P (MAP) 159/87 135/79 (97) Pulse Ox 99 O2 Delivery Room Air Room Air Room Air 07/24/21 07/24/21 07/24/21 07/24/21 12:52 13:22 15:00 19:30 Temp 98.1 98.7 98.1 98.7 Pulse 81 69 Resp 18 20 B/P (MAP) 137/91 (106) 142/75 (97) Pulse Ox 100 99 O2 Delivery Room Air Room Air Room Air Room Air 07/24/21 07/24/21 07/24/21 07/24/21 20:00 20:42 21:12 23:22 Temp 98.1 98.1 Pulse 70 Resp 20 20 18 B/P (MAP) 145/86 (105) Pulse Ox 98 O2 Delivery Room Air Room Air Room Air Room Air 07/25/21 07/25/21 07/25/21 07/25/21 02:59 03:13 03:29 07:00 Temp 98.6 98.2 98.6 98.2 Pulse 70 65 Resp 20 18 20 18 B/P (MAP) 145/91 (109) 167/98 (121) Pulse Ox 99 98 O2 Delivery Room Air Room Air Room Air Room Air 07/25/21 08:50 Pulse 65 B/P (MAP) 167/98 Intake and Output 07/24/21 07/24/21 07/25/21 15:00 23:00 07:00 Intake Total 240 ml Output Total 300 ml Balance -60 ml Justifications for Admission Other Justification MATT OSORIO MD Jul 25, 2021 09:22
--- NOTE | 2021-07-25 09:58 | RAD ---
EXAM: DG SMALL BOWEL FOLLOW THROUGH 07/25/2021 8:59 AM CLINICAL INDICATION: Partial small bowel obstruction, recurrent nausea and vomiting, abdominal pain. COMPARISON: Abdominal radiograph 07/24/2021. CT abdomen and pelvis 07/19/2021 TECHNIQUE: A casing worker view of the abdomen was obtained. The patient then drank 400 cc Omnipaque 300 and radiograph were obtained at 0 minutes and 20 minutes. FINDINGS: There is a moderate volume of stool. No small bowel dilation. There are embolization coils projecting over the right hemipelvis. Old avulsion injury of the right acetabulum. There is degenera tive disc disease in the lumbar spine. The stomach is normal in morphology. Contrast reaches the col on by 20 minutes and is seen to the rectum. IMPRESSION: 1. No small bowel obstruction. 2. Contrast is seen throughout the colon by 20 minutes. Electronically signed by: Sima Rodriguez MD (07/25/2021 9:56 AM) [id number]
--- NOTE | 2021-07-25 10:04 | PDOC ---
Date of Service: DATE: 07/25/21 TIME: 10:00 Objective: Objective: D/w Dr. Johnson - possible DC after SBS. Nurse says tolerated diet yesterday. Vital Signs: Vital Signs Date Time Temp Pulse Resp B/P (MAP) Pulse Ox O2 Delivery O2 Flow Rate FiO2 07/25/21 09:57 Room Air 07/25/21 08:50 65 167/98 07/25/21 07:00 98.2 18 98 98.2 PE: out of room A/P: Recurrent partial/SBO H/o perf DU s/p Rojelio patch -- Await SBS. Justicifation of Admission Dx: Justifications for Admission: Justification of Admission Dx: Yes Sepsis: Dehydration SELENE CAREY Jul 25, 2021 10:04
[2021-07-25 11:00] VITALS: BP 118/67
--- NOTE | 2021-07-26 21:31 | PDOC ---
Provider Note Date of Service: DATE: 07/26/21 TIME: 21:30 Provider Note Discharge summary dictated.#[id number]. Justifications for Admission Other Justification MATT OSORIO MD Jul 26, 2021 21:31
--- NOTE | 2021-07-26 21:56 | DS ---
DATE OF DISCHARGE: 07/25/2021 REASON FOR ADMISSION TO THE HOSPITAL: Abdominal pain, small-bowel obstruction. CONSULTATIONS: Dr. Burnett, GI. PROCEDURES DONE: Small bowel series. HOSPITAL COURSE: The patient is a 71-year-old male, patient came with abdominal pain. CT scan shows a small bowel obstruction. The patient has a history of gastric perforation, had a partial gastric resection and he had an endoscopy a couple of weeks ago and no active ulcerations and at this time when he came in, he was found to have a small-bowel obstruction. NG tube was placed. The patient was given IV fluids and seen by GI. After a couple of days of bowel rest, the patient able to tolerate clear liquid diet. NG tube was removed. Small bowel series did not show any obstruction. The patient was tolerating diet and the patient was discharged. FINAL DIAGNOSES: 1. Small-bowel obstruction, resolved with conservative treatment, NG tube and suctioning. 2. History of partial gastric resection secondary to perforated duodenal ulcer. 3. Hypertension. 4. Chronic kidney disease. 5. Hypothyroidism. DISPOSITION: Home. See [facility] for discharge medications. JAMIL DR: Trinh TID: [id number]
== END 2021-07-25 13:45 | disposition home or self-care (01) | DRG 389 ==
LOC: ER 05:19 → 4 NORTH 08:03
PROVIDERS: ADMIT Internal Medicine; ATTEND Internal Medicine
PROC: 0D9670Z Drainage of Stomach with Drainage Device, Via Natural or Artificial Opening (ICD-10-PCS; principal; 2021-07-20)
DX: K56.600 Partial intestinal obstruction, unspecified as to cause (principal); R65.10 Systemic inflammatory response syndrome (SIRS) of non-infectious origin without acute organ dysfunction; R07.89 Other chest pain; D72.829 Elevated white blood cell count, unspecified; E03.9 Hypothyroidism, unspecified; E11.22 Type 2 diabetes mellitus with diabetic chronic kidney disease; E78.5 Hyperlipidemia, unspecified; E86.0 Dehydration; G89.4 Chronic pain syndrome; H91.90 Unspecified hearing loss, unspecified ear; I12.9 Hypertensive chronic kidney disease with stage 1 through stage 4 chronic kidney disease, or unspecified chronic kidney disease; K21.9 Gastro-esophageal reflux disease without esophagitis; K86.89 Other specified diseases of pancreas; M21.379 Foot drop, unspecified foot; N18.9 Chronic kidney disease, unspecified; Z79.1 Long term (current) use of non-steroidal anti-inflammatories (NSAID); Z79.891 Long term (current) use of opiate analgesic; Z87.11 Personal history of peptic ulcer disease; K21.00 Gastro-esophageal reflux disease with esophagitis, without bleeding; E87.6 Hypokalemia
CPT/HCPCS: 36415; 71045; 71275; 74018; 74177; 74250; 80048; 80053; 81001; 83690; 83880; 84484; 85025; 85610; 85730; 93005; 96361; 96374; 96375; C9113; J0360; J1170; J2270; J2405; J3480; J3490; J7030; J7042; Q9967; 97530-GP; 97535-GO; 99285-25; G0378